=== PATIENT | female | born 1970 | race Hispanic/Latino ===

== ENCOUNTER 2022-06-05 09:27 | Day surgery (SDC) | payer OTHER ==
[2022-05-29 14:05] LABS: Protime INR 1.01
--- NOTE | 2022-05-29 15:14 | EKG ---
Test Date: 2022-05-29 Test Time: 13:06:45 Toxicology Supervisor: WILLIAM MEASUREMENT RESULTS: Intervals: Rate: 67 WI: 144 QRSD: 80 QT: 546 QTc: 576 [place]: P: 47 WI: 144 QRS: 18 T: 72 INTERPRETIVE STATEMENTS: Normal sinus rhythm Nonspecific T wave abnormality Prolonged QT Abnormal ECG No previous ECG available for comparison Electronically Signed On 05-29-22 15:13:35 SENIOR SITE MANAGER by [place]
[2022-06-05] MEDS ORDERED: CEFAZOLIN SODIUM 2 GM/VIAL ONE (10:01)
[2022-06-05] MEDS ORDERED: Ringers Lactate 1,000 ML IV ONE (10:01)
[2022-06-05] MEDS ORDERED: propofoL 200 MG/20 ML VIAL IV ONE (11:04)
[2022-06-05] MEDS ORDERED: MIDAZOLAM HCL 2 MG/2 ML INJ ONE (11:05)
[2022-06-05] MEDS ORDERED: FENTANYL CITR 100 MCG/2 ML ONE (11:05)
[2022-06-05] MEDS ORDERED: LIDOCAINE 1% MPF 5 ML VIAL ONE (11:05)
[2022-06-05] MEDS ORDERED: NS 0.9% VIAL 10 ML ONE (11:29)
[2022-06-05] MEDS ORDERED: CEFAZOLIN SODIUM 1 GM/VIAL ONE (11:42)
[2022-06-05] MEDS ORDERED: EPHEDRINE SULF 50 MG/ML VIAL ONE (11:53)
[2022-06-05] MEDS ORDERED: KETOROLAC 30 MG/ML INJ ONE (11:57)
[2022-06-05] MEDS ORDERED: ONDANSETRON 4 MG/2 ML VIAL ONE (12:08)
--- NOTE | 2022-06-05 12:39 | RAD REPORT ---
EXAM DESCRIPTION: RAD - Urethrocystogrphy Retrograde - 06/05/2022 12:33 pm CLINICAL HISTORY: LEFT URETEROSCOPY COMPARISON: No comparisons FINDINGS: Total fluoro time: 1:45
[2022-06-05 14:24] VITALS: BP 105/59; TEMP 97.4; O2SAT 100
== END 2022-06-05 14:14 | disposition home or self-care (01) ==
LOC: OR 09:27
PROVIDERS: ATTEND Urology
DX: C66.2 Malignant neoplasm of left ureter (principal); N28.89 Other specified disorders of kidney and ureter; N13.30 Unspecified hydronephrosis; N26.1 Atrophy of kidney (terminal); R10.9 Unspecified abdominal pain
CPT/HCPCS: 93005; 87088; 87086; 36415; 88108; 85610; 88305 ×2; 74450; 51610; J2704; J2001; J2250; J3010; A4216; J7120; J2405; J0690

== ENCOUNTER 2022-07-13 10:39 | Day surgery (SDC) | payer OTHER ==
[2022-07-13] MEDS ORDERED: Ringers Lactate 1,000 ML IV ONE ×2 (10:50→14:26)
[2022-07-13] MEDS ORDERED: CEFAZOLIN SODIUM 1 GM/VIAL ONE (10:50)
[2022-07-13] MEDS ORDERED: NS 0.9% VIAL 40 ML ONE (11:56)
[2022-07-13] MEDS ORDERED: BUPIVACAINE 0.5% PF 10 ML VIAL ONE (11:57)
[2022-07-13] MEDS ORDERED: HEPARIN 5000 UNIT/ML 1 ML VIAL ONE (11:57)
[2022-07-13] MEDS ORDERED: EPINEPHRINE/PF 1 MG/ML AMP ONE (11:58)
[2022-07-13] MEDS ORDERED: BUPIVACAINE 0.25% PF 10 ML VIAL ONE (12:00)
[2022-07-13] MEDS ORDERED: propofoL 200 MG/20 ML VIAL IV ONE (12:11)
[2022-07-13] MEDS ORDERED: FENTANYL CITR 100 MCG/2 ML ONE (12:11)
[2022-07-13] MEDS ORDERED: MIDAZOLAM HCL 2 MG/2 ML INJ ONE (12:12)
[2022-07-13] MEDS ORDERED: LIDOCAINE 2% MPF 5 ML VIAL ONE (12:12)
[2022-07-13] MEDS ORDERED: KETOROLAC 30 MG/ML INJ ONE (12:12)
[2022-07-13] MEDS ORDERED: dexAMETHasone 10 MG/ML VIAL ONE (12:12)
[2022-07-13] MEDS ORDERED: ONDANSETRON 4 MG/2 ML VIAL ONE (12:14)
[2022-07-13] MEDS ORDERED: NS 0.9% VIAL 10 ML ONE ×2 (13:23→13:26)
[2022-07-13] MEDS ORDERED: Phenylephrine HCl 10 MG/ML 1 ML VIAL ONE (13:26)
--- NOTE | 2022-07-13 13:57 | P.OP ---
Preoperative diagnosis: Need for chemotherapy Postoperative diagnosis: Need for chemotherapy Primary procedure: Placement RIGHT subclavian Port a cath chemo port Secondary procedure: flouroscopy and ultrasound utilized Anesthesia: mac + local Estimated blood loss: 5cc Specimen: none Findings: anatomic abnormality in RIGTH Subclavian Complications: None Implants: Port a Cath Transferred to: Recovery Room Condition: Good
--- NOTE | 2022-07-13 14:08 | RAD REPORT ---
EXAM DESCRIPTION: RAD - Fluoroscopy <1 Hour - 07/13/2022 1:58 pm CLINICAL HISTORY: Venous catheter insertion. PORT A CATH COMPARISON: No comparisons FINDINGS: Fluoroscopic imaging is submitted from placement of a venous catheter. Details of the pro cedure not available. Fluoroscopy time: 2.7 minutes
[2022-07-13] MEDS ORDERED: PROMETHAZINE INJ 25 MG/ML AMP ONE (14:18)
[2022-07-13] MEDS: HYDROMORPHONE HCL 1 MG/ML INJ ONE ×2 (14:21→14:44)
--- NOTE | 2022-07-13 15:16 | RAD REPORT ---
EXAM DESCRIPTION: RADChest Single View07/13/2022 3:02 pm CLINICAL HISTORY: Device placement/central venous catheter placement IMPRESSION: Central venous catheter with its tip in the superior vena cava No pneumothorax
[2022-07-13 15:20] VITALS: BP 110/71
[2022-07-13 16:35] VITALS: TEMP 97; O2SAT 96
--- NOTE | 2022-07-13 23:20 | OP ---
Date of Procedure: 07/13/2022 Surgeon: Gino Baum MD, Indications: This is a 51-year-old female with a history of cancer requiring chemotherapy access. A s such, I discussed risks, benefits, and alternatives of placement of chemotherapy port including, bu t not limited to bleeding, infection, damage to surrounding tissues, injury to blood vessels, lung, h eart, great vessels. The patient agreed to proceed as indicated. Preoperative Diagnosis: Need for chemotherapy. Postoperative Diagnosis: Need for chemotherapy. Procedure Performed: 1.Attempted placement of right internal jugular port, unsuccessful. 2.Placement of right subclavian chemotherapy Port-A-Cath successfully utilizing fluoroscopy and ultr asound guidance. Anesthesia: MAC plus local. Estimated Blood Loss: Less than 5 cc. Specimen: None. Findings: Anatomic abnormality was noted in the right subclavian vein. Complications: None. Implants: Port-A-Cath. Disposition: The patient was transferred to recovery room in good condition. Procedure In Detail: After informed consent was obtained, patient was brought to the operating room, prepped in the usual sterile fashion. After adequate anesthesia was achieved, I placed the patient in steep Trendelenburg position using ultrasound guidance. I cannulated the right internal jugular v ein under ultrasound guidance with a microintroducer needle. On the first attempt, dark red nonpulsa tile blood was returned. Microwire was advanced quite easily. Confirmed position with fluoroscopy i nto the right atrium. At this point, I made a small radha incision overlying the skin, inserted a demario rointroducer sheath into the right internal jugular vein and the microwire was removed. Standard wir e was advanced at this point and found to be in good position also in the right atrium. I then made a counter incision at the infraclavicular position and removed adipose tissue to allow for exposure o f the prepectoral fascia. I then brought the tunneling device and brought the catheter after appropr iately anesthetizing the tract, out through the internal jugular insertion site. At this point, I in serted the catheter without incident after placing the introducer sheath in place over the wire using Seldinger technique. The standard wire was on the back table and so I advanced the catheter. I adv anced using fluoroscopic guidance into the SVC. At this point, I attached the chemotherapy button to the end and attempted to flush it after sizing it appropriately 19 cm. It did not flush easily and the fluoroscopic guidance confirmed that there was a twist up at the neck. Multiple attempts to repo sition were unsuccessful. As such, I removed the catheter at this point and opted to close this site . At this point, I placed a dressing over the insertion site and turned my attention to the subclavi an vein. At this point, I used the same said micro introducer needle to cannulate the right subclavi an vein on the first attempt. Dark red nonpulsatile blood returned. Microwire was advanced. Fluoro scopic guidance confirmed position in the SVC. At this point, I placed the introducer sheath from e micro set, removed the micro wire, advanced standard wire at this point, also found to be in the ri t atrium at this point. The microintroducer sheath was removed and the standard introducer sheath was placed at this point with minimal resistance at this point. I then advanced the catheter into th e right atrium and removed the introducer sheath. At this point, I pulled back on the catheter to pu t it in the SVC confluence. At this point, I attached the chemotherapy port with the lock collar. A t this point, I then secured to the chest wall using 2-0 Prolene sutures and tested it with sterile s willian and flushed quite easily at this point. As such, I irrigated all incisions. I closed the neck insertion incision with an interrupted 2-0 nylon suture and a sterile dressing placed over top. I t richard closed the deep dermal plane overlying the pocket for the chemotherapy port on the chest wall wit h 3-0 Vicryl interrupted sutures and closed the skin with 4-0 Monocryl in a running fashion at the mccoy bcutaneous plane. At this point, a sterile dressing was placed over the top. I then placed heparin super flush 3 cc into the port, was flushed quite easily transcutaneously and a sterile dressing plac ed over top. The patient tolerated the procedure well without evidence of complication and transferr ed to PACU in good condition. All counts were correct at the end of the case. A stat chest x-ray wi ll be performed in the PACU. TK/MODL Voice ID: [id number] Report ID: [id number]
== END 2022-07-13 16:21 | disposition home or self-care (01) ==
LOC: OR 10:39
PROVIDERS: ATTEND Surgery
PROC: 0JH60WZ Insertion of Totally Implantable Vascular Access Device into Chest Subcutaneous Tissue and Fascia, Open Approach (ICD-10-PCS; principal; 2022-07-13 11:45)
DX: C66.2 Malignant neoplasm of left ureter (principal)
CPT/HCPCS: 71045; 76000; 36561; J2704; J2550; J2370; J1644 ×3; J2001; J2250; J3010; J1100; A4216 ×3; J1170; J7120 ×2; J2405; J0690; C1788; J0171

== ENCOUNTER 2022-07-17 09:45 | Emergency (ER) | payer OTHER ==
--- OUTSIDE RECORDS SUMMARY | 2022-07-17 09:52 | XMS REPORT | Continuity of Care Document ---
:1970 Author Organization [facility] t Address [address] [place] [address] Care Team Providers Name Role Phone Michaela Sterling MD Primary Care Physician Micahela Sterling Attending Clinician Unavailable RANJIT COKER Attending Clinician Unavailable Ranjit Coker MD Attending Clinician Lab, Ang - Db Attending Clinician Unavailable Doctor Unassigned, [place] Attending Clinician Unavailable JAIDEN TAN Attending Clinician Unavailable Therapy, [facility] Attending Clinician Unavailable Juliano Chan MD Attending Clinician JULIANO CHAN Attending Clinician Unavailable RANJIT COKER Admitting Clinician Unavailable Payers Payer Name Policy Type Policy Number Effective Date Expiration Date S ource Problems Condition Condition Condition Status Onset Resolution Last Treating Co mments Source Name Details Category Date Date Treatment Clinician Date Graves Graves Disease Active Univers disease disease 3-29 ity of 00:00: [address] Goiter Goiter Disease Active Univers diffuse diffuse 3-29 ity of 00:00: [address] [id number] Hydronephr Problem Com mon osis, left [facility] [id number] Nausea Problem Common [facility] - [facility] [id number] Mass of Problem Common ureter [facility] - [facility] [id number] Left lower Problem Co mmon quadrant [facility] abdominal - [facility] pain [facility] [id number] 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 [id number] EZEQUIEL Problem Common (generaliz Spirit ed anxiety - [facility] disorder) [facility] [id number] Essential Problem Comm on (primary) Spirit hypertensi - [facility] on [facility] [id number] Hypertrigl Problem Co mmon yceridemia [facility] [id number] Hyperthyro Problem Com mon idism [facility] - [facility] Allergies, Adverse Reactions, Alerts Allergy Allergy Status Severity Reaction(s) Onset Inactive Treating Comm ents Source Name Type Date Date Clinician NO KNOWN Drug Active Univers ALLERGIE Class ity of [facility] Social History Social Habit Start Date Stop Date Quantity Comments Source History of Tobacco [facility] - [facility] Use [facility] Sex Assigned At Common Sp [place] - [facility] Exposure to 2022-06-09 2022-06-19 Not sure [facility] SARS-CoV-2 (event) 00:00:00 15:12:00 Medica l Branch Smoking Status Start Date Stop Date Source Tobacco smoking consumption [facility] Medical unknown Branch Never Smoker [facility] Medications Ordered Filled Start Stop Current Ordering Indication Dosage Frequency Signature Comments Components Source Medication Medication Date Date Medication? Clinician (SIG) Name Name diazePAM 10 diazePAM 10 No QD diazePAM MG MG 1-23 10 MG 00:00: 00 methIMAzole 2021-06 Yes [id number] TAKE 1 Univers 10 mg 2-11 TABLET BY ity of tablet 00:00: MOUTH TWICE A Medical DAY Branch methIMAzole 2021-06 Yes [id number] TAKE 1 Univers 10 mg 2-11 TABLET BY ity of tablet 00:00: MOUTH [place] TWICE A Medical DAY Branch methIMAzole 2021-06 Yes [id number] TAKE 1 Univers 10 mg 2-11 TABLET BY ity of tablet 00:00: MOUTH TWICE A Medical DAY Branch Ondansetron Ondansetron 2021-06 No 1{table QD Ondansetro HCl 8 MG HCl 8 MG 2-08 t_as_ne n HCl 8 MG 00:00: eded} 00 Ondansetron Ondansetron 2021-06 No 1{table QD Ondansetro HCl 8 MG HCl 8 MG 2-08 t_as_ne n HCl 8 MG 00:00: eded} 00 Ondansetron Ondansetron 2021-06 No 1{table QD Ondansetro HCl 8 MG HCl 8 MG 2-08 t_as_ne n HCl 8 MG 00:00: eded} 00 Ondansetron Ondansetron 2021-06 No 1{table QD Ondansetro HCl 8 MG HCl 8 MG 2-08 t_as_ne n HCl 8 MG 00:00: eded} 00 traMADol traMADol 2021-06- No 1{table TID traMADol HCl 50 MG HCl 50 MG -01 19- t_as_ne HCl 50 MG 00:00: 00:00 eded} 00 :00 traMADol traMADol 2021-06- No 1{table TID traMADol HCl 50 MG HCl 50 MG 07-18- t_as_ne HCl 50 MG 00:00: 00:00 eded} 00 :00 PROPRANOLOL 2022-1 Yes [id number] 20mg TAKE 1 Univers 20 mg 0-25 TABLET BY ity of tablet 00:00: MOUTH IN [place] 00 THE Medical MORNING Branch AND 1 TABLET IN THE EVENING. PROPRANOLOL 2021-1 Yes [id number] 20mg TAKE 1 Univers 20 mg 0-25 TABLET BY ity of tablet 00:00: MOUTH IN [place] 00 THE Medical MORNING Branch AND 1 TABLET IN THE EVENING. PROPRANOLOL 2021-1 Yes [id number] 20mg TAKE 1 Univers 20 mg 0-25 TABLET BY ity of tablet 00:00: MOUTH IN [place] 00 THE Medical MORNING Branch AND 1 TABLET IN THE EVENING. PROPRANOLOL 2021-1 Yes [id number] 20mg TAKE 1 Univers 20 mg 0-25 TABLET BY ity of tablet 00:00: MOUTH IN [place] [address] THE Medical MORNING Branch AND 1 TABLET IN THE EVENING. Sertraline Sertraline 2021-0 No 1{table QD Sertraline HCl 25 MG HCl 25 MG 9-30 t} HCl 25 MG 00:00: 00 Sertraline Sertraline 2021-0 No 1{table QD Sertraline HCl 25 MG HCl 25 MG 9-30 t} HCl 25 MG 00:00: 00 METHIMAZOLE 2021-0 Yes [id number] TAKE 1 Univers 10 mg 9-11 TABLET BY ity of tablet 00:00: MOUTH [place] 00 TWICE A Medical DAY Branch METHIMAZOLE 2021-0 Yes [id number] TAKE 1 Univers 10 mg 9-11 TABLET BY ity of tablet 00:00: MOUTH [place] 00 TWICE A Medical DAY Branch METHIMAZOLE 2021-0 2022- No [id number] TAKE 1 Univers 10 mg 9-11 12-11 TABLET BY ity of tablet 00:00: 00:00 MOUTH [place] 00 :00 TWICE A Medical DAY Branch Cephalexin Cephalexin 2021-0 2022- No 1{table BID Cephalexin 500 MG 500 MG 02-1414 t} 500 MG 00:00: 00:00 00 :00 propranoloL 2-0 Yes [id number] 20mg Take 1 Univers 20 mg 7-28 tablet by ity of tablet 00:00: mouth in [place] [address] the Medical morning Branch and 1 tablet in the evening. propranoloL 2021-0 Yes [id number] 20mg Take 1 Univers 20 mg 7-28 tablet by ity of tablet 00:00: mouth in [place] [address] the Medical morning Branch and 1 tablet in the evening. propranoloL 2021-0 2021- No [id number] 20mg Take 1 Univers 20 mg 7-28 10-25 tablet by ity of tablet 00:00: 00:00 mouth in [place] 00 :00 the Medical morning Branch and 1 tablet in the evening. PROPRANOLOL 2021-0 Yes [id number] TAKE 1 Univers 20 mg 6-12 TABLET BY ity of tablet 00:00: MOUTH [place] 00 TWICE A Medical DAY Branch METHIMAZOLE 2021-0 Yes [id number] TAKE 1 Univers 10 mg 6-12 TABLET BY ity of tablet 00:00: MOUTH [place] 00 TWICE A Medical DAY Branch PROPRANOLOL 2021-0 Yes [id number] TAKE 1 Univers 20 mg 6-12 TABLET BY ity of tablet 00:00: MOUTH [place] 00 TWICE A Medical DAY Branch METHIMAZOLE 2021-0 Yes [id number] TAKE 1 Univers 10 mg 6-12 TABLET BY ity of tablet 00:00: MOUTH 00 TWICE A Medical DAY Branch PROPRANOLOL 2021-0 Yes [id number] TAKE 1 Univers 20 mg 6-12 TABLET BY ity of tablet 00:00: MOUTH 00 TWICE A Medical DAY Branch METHIMAZOLE 2021-0 Yes [id number] TAKE 1 Univers 10 mg 6-12 TABLET BY ity of tablet 00:00: MOUTH 00 TWICE A Medical DAY Branch PROPRANOLOL 2021-0 Yes [id number] TAKE 1 Univers 20 mg 6-12 TABLET BY ity of tablet 00:00: MOUTH [place] 00 TWICE A Medical DAY Branch METHIMAZOLE 2021-0 Yes [id number] TAKE 1 Univers 10 mg 6-12 TABLET BY ity of tablet 00:00: MOUTH 00 TWICE A Medical DAY Branch METHIMAZOLE 2021-0 Yes [id number] TAKE 1 Univers 10 mg 6-12 TABLET BY ity of tablet 00:00: MOUTH [place] 00 TWICE A Medical DAY Branch METHIMAZOLE 2-0 2022- No [id number] TAKE 1 Univers 10 mg 6-12 09-11 TABLET BY ity of tablet 00:00: 00:00 MOUTH [place] 00 :00 TWICE A Medical DAY Branch PROPRANOLOL 2021-0 2022- No [id number] TAKE 1 Univers 20 mg 6-12 07-28 TABLET BY ity of tablet 00:00: 00:00 MOUTH [place] 00 :00 TWICE A Medical DAY Branch buPROPion buPROPion 2021-0 No 1{table QD buPROPion HCl ER (XL) HCl ER (XL) 5-20 t_in_th HCl ER 300 MG 300 MG 00:00: e_morni (XL) 300 00 ng} MG buPROPion buPROPion 2021-0 No 1{table QD buPROPion HCl ER (XL) HCl ER (XL) 5-20 t_in_th HCl ER 300 MG 300 MG 00:00: e_morni (XL) 300 00 ng} MG amLODIPine amLODIPine 2021-0 No 1{table QD amLODIPine Besylate 10 Besylate 10 3-28 t} Besylate MG MG 00:00: 10 MG 00 buPROPion buPROPion 2021-0 No 1{table QD buPROPion HCl ER (XL) HCl ER (XL) 3-28 t_in_th HCl ER 150 MG 150 MG 00:00: e_morni (XL) 150 00 ng} MG amLODIPine amLODIPine 2021-0 No 1{table QD amLODIPine Besylate 10 Besylate 10 3-28 t} Besylate MG MG 00:00: 10 MG 00 amLODIPine amLODIPine 2021-0 No 1{table QD amLODIPine Besylate 10 Besylate 10 3-28 t} Besylate MG MG 00:00: 10 MG 00 amLODIPine amLODIPine 2021-0 No 1{table QD amLODIPine Besylate 10 Besylate 10 3-28 t} Besylate MG MG 00:00: 10 MG 00 amLODIPine amLODIPine 2021-0 No 1{table QD amLODIPine Besylate 10 Besylate 10 3-28 t} Besylate MG MG 00:00: 10 MG 00 amLODIPine amLODIPine 2021-0 No 1{table QD amLODIPine Besylate 10 Besylate 10 3-28 t} Besylate MG MG 00:00: 10 MG 00 amLODIPine amLODIPine 2021-0 No 1{table QD amLODIPine Besylate 10 Besylate 10 3-28 t} Besylate MG MG 00:00: 10 MG 00 amLODIPine amLODIPine 2021-0 No 1{table QD amLODIPine Besylate 10 Besylate 10 3-28 t} Besylate MG MG 00:00: 10 MG 00 amLODIPine amLODIPine 2021-0 No 1{table QD amLODIPine Besylate 10 Besylate 10 3-28 t} Besylate MG MG 00:00: 10 MG 00 amLODIPine amLODIPine 2021-0 No 1{table QD amLODIPine Besylate 10 Besylate 10 3-28 t} Besylate MG MG 00:00: 10 MG 00 amLODIPine amLODIPine 0 No 1{table QD amLODIPine Besylate 10 Besylate 10 3-28 t} Besylate MG MG 00:00: 10 MG 00 amLODIPine amLODIPine 2021-0 No 1{table QD amLODIPine Besylate 10 Besylate 10 3-28 t} Besylate MG MG 00:00: 10 MG 00 amLODIPine Yes Univers 10 mg 3-28 ity of tablet 00:00: [place] [facility] Branch buPROPion Yes Univers XL 150 mg 3-28 ity of 24 hr 00:00: [place] tablet Medical Branch lisinopriL Yes Univers 40 mg 3-28 ity of tablet 00:00: [address] amLODIPine 0 Yes Univers 10 mg 3-28 ity of tablet 00:00: [address] buPROPion Yes Univers XL 150 mg 3-28 ity of 24 hr 00:00: [place] tablet Medical Branch lisinopriL Yes Univers 40 mg 3-28 ity of tablet 00:00: [address] amLODIPine 0 Yes Univers 10 mg 3-28 ity of tablet 00:00: [address] buPROPion Yes Univers XL 150 mg 3-28 ity of 24 hr 00:00: [place] tablet Medical Branch lisinopriL 2021-0 Yes Univers 40 mg 3-28 ity of tablet 00:00: [address] amLODIPine 2021-0 Yes Univers 10 mg 3-28 ity of tablet 00:00: [address] buPROPion 0 Yes Univers XL 150 mg 3-28 ity of 24 hr 00:00: [place] tablet Medical Branch lisinopriL 2021-0 Yes Univers 40 mg 3-28 ity of tablet 00:00: [address] amLODIPine 2021-0 Yes Univers 10 mg 3-28 ity of tablet 00:00: [address] buPROPion 0 Yes Univers XL 150 mg 3-28 ity of 24 hr 00:00: [place] tablet Medical Branch lisinopriL 0 Yes Univers 40 mg 3-28 ity of tablet 00:00: [place] 00 Medical Branch amLODIPine 0 Yes Univers 10 mg 3-28 ity of tablet 00:00: [place] Medical Branch buPROPion 0 Yes Univers XL 150 mg 3-28 ity of 24 hr 00:00: [place] tablet Medical Branch lisinopriL 0 Yes Univers 40 mg 3-28 ity of tablet 00:00: [place] Medical Branch amLODIPine 2021-0 Yes Univers 10 mg 3-28 ity of tablet 00:00: [place] Medical Branch buPROPion 0 Yes Univers XL 150 mg 3-28 ity of 24 hr 00:00: [place] tablet Medical Branch lisinopriL 0 Yes Univers 40 mg 3-28 ity of tablet 00:00: [place] Medical Branch amLODIPine 2021-0 Yes Univers 10 mg 3-28 ity of tablet 00:00: [place] Medical Branch buPROPion 0 Yes Univers XL 150 mg 3-28 ity of 24 hr 00:00: [place] tablet Medical Branch lisinopriL 0 Yes Univers 40 mg 3-28 ity of tablet 00:00: [place] Medical Branch amLODIPine 2021-0 Yes Univers 10 mg 3-28 ity of tablet 00:00: [place] [address] Medical Branch buPROPion 0 Yes Univers XL 150 mg 3-28 ity of 24 hr 00:00: [place] tablet Medical Branch lisinopriL 2021-0 Yes Univers 40 mg 3-28 ity of tablet 00:00: [place] [address] Medical Branch amLODIPine 2021-0 Yes Univers 10 mg 3-28 ity of tablet 00:00: [place] Medical Branch buPROPion 2021-0 Yes Univers XL 150 mg 3-28 ity of 24 hr 00:00: [place] tablet Medical Branch lisinopriL 2021-0 Yes Univers 40 mg 3-28 ity of tablet 00:00: [place] Medical Branch amLODIPine 2021-0 Yes Univers 10 mg 3-28 ity of tablet 00:00: [place] Medical Branch buPROPion 2021-0 Yes Univers XL 150 mg 3-28 ity of 24 hr 00:00: [place] tablet Medical Branch lisinopriL 2021-0 Yes Univers 40 mg 3-28 ity of tablet 00:00: [place] Medical Branch amLODIPine 2021-0 Yes Univers 10 mg 3-28 ity of tablet 00:00: [place] 00 Medical Branch buPROPion 2-0 Yes Univers XL 150 mg 3-28 ity of 24 hr 00:00: [place] tablet 00 Medical Branch lisinopriL 2022-0 Yes Univers 40 mg 3-28 ity of tablet 00:00: [place] 00 Medical Branch Lisinopril Lisinopril 2022-0 No 1{table QD Lisinopril 40 MG 40 MG 3-11 t} 40 MG 00:00: 00 Lisinopril Lisinopril 2022-0 No 1{table QD Lisinopril 40 MG 40 MG 3-11 t} 40 MG 00:00: 00 Lisinopril Lisinopril 2022-0 No 1{table QD Lisinopril 40 MG 40 MG 3-11 t} 40 MG 00:00: 00 Lisinopril Lisinopril 2022-0 No 1{table QD Lisinopril 40 MG 40 MG 3-11 t} 40 MG 00:00: 00 Lisinopril Lisinopril 2022-0 No 1{table QD Lisinopril 40 MG 40 MG 3-11 t} 40 MG 00:00: 00 Lisinopril Lisinopril 2022-0 No 1{table QD Lisinopril 40 MG 40 MG 3-11 t} 40 MG 00:00: 00 Lisinopril Lisinopril 2022-0 No 1{table QD Lisinopril 40 MG 40 MG 3-11 t} 40 MG 00:00: 00 Lisinopril Lisinopril 2022-0 No 1{table QD Lisinopril 40 MG 40 MG 3-11 t} 40 MG 00:00: 00 Lisinopril Lisinopril 2022-0 No 1{table QD Lisinopril 40 MG 40 MG 3-11 t} 40 MG 00:00: 00 Sertraline Sertraline 2022-0 No 1{table QD Sertraline HCl 25 MG HCl 25 MG 3-11 t} HCl 25 MG 00:00: 00 Lisinopril Lisinopril 2022-0 No 1{table QD Lisinopril 40 MG 40 MG 3-11 t} 40 MG 00:00: 00 Sertraline Sertraline 2-0 No 1{table QD Sertraline HCl 25 MG HCl 25 MG 3-11 t} HCl 25 MG 00:00: 00 Lisinopril Lisinopril 2021-0 No 1{table QD Lisinopril 40 MG 40 MG 3-11 t} 40 MG 00:00: 00 SERTraline 0 Yes TAKE 1 Unive rs 25 mg 3-11 TABLET BY ity of tablet 00:00: MOUTH EVERY DAY Medical FOR 30 Branch DAYS SERTraline 0 Yes TAKE 1 Unive rs 25 mg 3-11 TABLET BY ity of tablet 00:00: MOUTH EVERY DAY Medical FOR 30 Branch DAYS SERTraline 0 Yes TAKE 1 Unive rs 25 mg 3-11 TABLET BY ity of tablet 00:00: EVERY DAY Medical FOR 30 Branch DAYS SERTraline 0 Yes TAKE 1 Unive rs 25 mg 3-11 TABLET BY ity of tablet 00:00: EVERY DAY Medical FOR 30 Branch DAYS SERTraline 0 Yes TAKE 1 Unive rs 25 mg 3-11 TABLET BY ity of tablet 00:00: EVERY DAY Medical FOR 30 Branch DAYS SERTraline 0 Yes TAKE 1 Unive rs 25 mg 3-11 TABLET BY ity of tablet 00:00: EVERY DAY Medical FOR 30 Branch DAYS SERTraline 0 Yes TAKE 1 Unive rs 25 mg 3-11 TABLET BY ity of tablet 00:00: EVERY DAY Medical FOR 30 Branch DAYS SERTraline 2021-0 Yes TAKE 1 Unive rs 25 mg 3-11 TABLET BY ity of tablet 00:00: EVERY DAY Medical FOR 30 Branch DAYS SERTraline 2021-0 Yes TAKE 1 Unive rs 25 mg 3-11 TABLET BY ity of tablet 00:00: EVERY DAY Medical FOR 30 Branch DAYS SERTraline 2021-0 Yes TAKE 1 Unive rs 25 mg 3-11 TABLET BY ity of tablet 00:00: EVERY DAY Medical FOR 30 Branch DAYS SERTraline 2021-0 Yes TAKE 1 Unive rs 25 mg 3-11 TABLET BY ity of tablet 00:00: EVERY DAY Medical FOR 30 Branch DAYS SERTraline 2021-0 Yes TAKE 1 Unive rs 25 mg 3-11 TABLET BY ity of tablet 00:00: EVERY DAY Medical FOR 30 Branch DAYS Citalopram Citalopram No 1{table QD Citalopram Hydrobromid Hydrobromid 2-28 t} Hydrobromi e 10 MG e 10 MG 00:00: de 10 MG 00 citalopram Yes TAKE 1 Unive rs 10 mg 2-28 TABLET BY ity of tablet 00:00: MOUTH EVERY DAY Medical FOR 30 Branch DAYS citalopram Yes TAKE 1 Unive rs 10 mg 2-28 TABLET BY ity of tablet 00:00: MOUTH EVERY DAY Medical FOR 30 Branch DAYS citalopram Yes TAKE 1 Unive rs 10 mg 2-28 TABLET BY ity of tablet 00:00: [facility] EVERY DAY Medical FOR 30 Branch DAYS citalopram Yes TAKE 1 Unive rs 10 mg 2-28 TABLET BY ity of tablet 00:00: EVERY DAY Medical FOR 30 Branch DAYS citalopram Yes TAKE 1 Unive rs 10 mg 2-28 TABLET BY ity of tablet 00:00: MOUTH EVERY DAY Medical FOR 30 Branch DAYS citalopram Yes TAKE 1 Unive rs 10 mg 2-28 TABLET BY ity of tablet 00:00: EVERY DAY Medical FOR 30 Branch DAYS citalopram Yes TAKE 1 Unive rs 10 mg 2-28 TABLET BY ity of tablet 00:00: EVERY DAY Medical FOR 30 Branch DAYS citalopram Yes TAKE 1 Unive rs 10 mg 2-28 TABLET BY ity of tablet 00:00: MOUTH EVERY DAY Medical FOR 30 Branch DAYS citalopram 0 Yes TAKE 1 Unive rs 10 mg 2-28 TABLET BY ity of tablet 00:00: MOUTH EVERY DAY Medical FOR 30 Branch DAYS citalopram 0 Yes TAKE 1 Unive rs 10 mg 2-28 TABLET BY ity of tablet 00:00: MOUTH 00 EVERY DAY Medical FOR 30 Branch DAYS citalopram 0 Yes TAKE 1 Unive rs 10 mg 2-28 TABLET BY ity of tablet 00:00: [facility] EVERY DAY Medical FOR 30 Branch DAYS citalopram Yes TAKE 1 Unive rs 10 mg 2-28 TABLET BY ity of tablet 00:00: MOUTH [place] 00 EVERY DAY Medical FOR 30 Branch DAYS buPROPion buPROPion No 1{table QD buPROPion HCl ER (XL) HCl ER (XL) t_in_th HCl ER 150 MG 150 MG e_morni (XL) 150 ng} MG Propranolol Propranolol No 1{table BID Propranolo HCl 20 MG HCl 20 MG t} l HCl 20 MG methIMAzole methIMAzole No 1{table QD methIMAzol 10 MG 10 MG t} e 10 MG methIMAzole methIMAzole No 1{table QD methIMAzol 10 MG 10 MG t} e 10 MG Propranolol Propranolol No 1{table BID Propranolo HCl 20 MG HCl 20 MG t} l HCl 20 MG methIMAzole methIMAzole No 1{table QD methIMAzol 10 MG 10 MG t} e 10 MG Propranolol Propranolol No 1{table BID Propranolo HCl 20 MG HCl 20 MG t} l HCl 20 MG methIMAzole methIMAzole No 1{table QD methIMAzol 10 MG 10 MG t} e 10 MG buPROPion buPROPion No 1{table QD buPROPion HCl ER (XL) HCl ER (XL) t_in_th HCl ER 150 MG 150 MG e_morni (XL) 150 ng} MG Propranolol Propranolol No 1{table BID Propranolo HCl 20 MG HCl 20 MG t} l HCl 20 MG Propranolol Propranolol No 1{table BID Propranolo HCl 20 MG HCl 20 MG t} l HCl 20 MG buPROPion buPROPion No 1{table QD buPROPion HCl ER (XL) HCl ER (XL) t_in_th HCl ER 150 MG 150 MG e_morni (XL) 150 ng} MG methIMAzole methIMAzole No 1{table QD methIMAzol 10 MG 10 MG t} e 10 MG methIMAzole methIMAzole No 1{table QD methIMAzol 10 MG 10 MG t} e 10 MG Propranolol Propranolol No 1{table BID Propranolo HCl 20 MG HCl 20 MG t} l HCl 20 MG buPROPion buPROPion No 1{table QD buPROPion HCl ER (XL) HCl ER (XL) t_in_th HCl ER 150 MG 150 MG e_morni (XL) 150 ng} MG buPROPion buPROPion No buPROPion HCl ER (XL) HCl ER (XL) HCl ER 300 MG 300 MG (XL) 300 MG buPROPion buPROPion No 1{table QD buPROPion HCl ER (XL) HCl ER (XL) t_in_th HCl ER 150 MG 150 MG e_morni (XL) 150 ng} MG methIMAzole methIMAzole No 1{table QD methIMAzol 10 MG 10 MG t} e 10 MG Propranolol Propranolol No 1{table BID Propranolo HCl 20 MG HCl 20 MG t} l HCl 20 MG buPROPion buPROPion No 1{table QD buPROPion HCl ER (XL) HCl ER (XL) t_in_th HCl ER 150 MG 150 MG e_morni (XL) 150 ng} MG Lisinopril Lisinopril No Lisinopril 40 MG 40 MG 40 MG Sertraline Sertraline No Sertraline HCl 25 MG HCl 25 MG HCl 25 MG methIMAzole methIMAzole No 1{table QD methIMAzol 10 MG 10 MG t} e 10 MG Propranolol Propranolol No 1{table BID Propranolo HCl 20 MG HCl 20 MG t} l HCl 20 MG Lisinopril Lisinopril No Lisinopril 40 MG 40 MG 40 MG methIMAzole methIMAzole No 1{table QD methIMAzol 10 MG 10 MG t} e 10 MG buPROPion buPROPion No 1{table QD buPROPion HCl ER (XL) HCl ER (XL) t_in_th HCl ER 150 MG 150 MG e_morni (XL) 150 ng} MG methIMAzole methIMAzole No 1{table QD methIMAzol 10 MG 10 MG t} e 10 MG buPROPion buPROPion No 1{table QD buPROPion HCl ER (XL) HCl ER (XL) t_in_th HCl ER 150 MG 150 MG e_morni (XL) 150 ng} MG Lisinopril Lisinopril No Lisinopril 40 MG 40 MG 40 MG amLODIPine amLODIPine No amLODIPine Besylate 10 Besylate 10 Besylate MG MG 10 MG buPROPion buPROPion No 1{table QD buPROPion HCl ER (XL) HCl ER (XL) t_in_th HCl ER 150 MG 150 MG e_morni (XL) 150 ng} MG methIMAzole methIMAzole No 1{table QD methIMAzol 10 MG 10 MG t} e 10 MG Lisinopril Lisinopril No Lisinopril 40 MG 40 MG 40 MG amLODIPine amLODIPine No amLODIPine Besylate 10 Besylate 10 Besylate MG MG 10 MG Lisinopril Lisinopril No Lisinopril 40 MG 40 MG 40 MG methIMAzole methIMAzole No 1{table QD methIMAzol 10 MG 10 MG t} e 10 MG buPROPion buPROPion No 1{table QD buPROPion HCl ER (XL) HCl ER (XL) t_in_th HCl ER 150 MG 150 MG e_morni (XL) 150 ng} MG Propranolol Propranolol No 5{ml} QD Propranolo HCl 20 HCl 20 l HCl 20 MG/5ML MG/5ML MG/5ML buPROPion buPROPion No 1{table QD buPROPion HCl ER (XL) HCl ER (XL) t_in_th HCl ER 150 MG 150 MG e_morni (XL) 150 ng} MG amLODIPine amLODIPine No amLODIPine Besylate 10 Besylate 10 Besylate MG MG 10 MG traMADol traMADol No 1{table QD traMADol HCl 50 MG HCl 50 MG t_as_ne HCl 50 MG eded} methIMAzole methIMAzole No 1{table QD methIMAzol 10 MG 10 MG t} e 10 MG Lisinopril Lisinopril No Lisinopril 40 MG 40 MG 40 MG buPROPion buPROPion No 1{table QD buPROPion HCl ER (XL) HCl ER (XL) t_in_th HCl ER 150 MG 150 MG e_morni (XL) 150 ng} MG methIMAzole methIMAzole No 1{table QD methIMAzol 10 MG 10 MG t} e 10 MG Propranolol Propranolol No 1{table BID Propranolo HCl 20 MG HCl 20 MG t} l HCl 20 MG Vital Signs Vital Name Observation Time Observation Value Comments Source height 2022-07-02 10:40:00 60 [in_i] Common S pirit [facility] weight 2022-07-02 10:40:00 189.8 [lb_av] Common Spirit [facility] temperature 2022-07-02 10:40:00 97.6 [degF] Common S pirit [facility] bmi 2022-07-02 10:40:00 37.06 kg/m2 Common [facility] oximetry 2022-07-02 10:40:00 95 % Common [facility] respiratory rate 2022-07-02 10:40:00 17 /min Comm on [facility] blood pressure 2022-07-02 10:40:00 136 mm[Hg] Common [facility] - systolic [facility] blood pressure 2022-07-02 10:40:00 68 mm[Hg] Common [facility] - diastolic [facility] height 2022-06-14 14:00:00 60 [in_i] Common [facility] weight 2022-06-14 14:00:00 193.8 [lb_av] [facility] temperature 2022-06-14 14:00:00 97.4 [degF] Common [facility] bmi 2022-06-14 14:00:00 37.84 kg/m2 [facility] oximetry 2022-06-14 14:00:00 96 % Common [facility] respiratory rate 2022-06-14 14:00:00 18 /min Comm on [facility] blood pressure 2022-06-14 14:00:00 145 mm[Hg] Common [facility] - systolic [facility] blood pressure 2022-06-14 14:00:00 75 mm[Hg] Common [facility] - diastolic [facility] height 2022-05-24 15:45:00 60 [in_i] Common [facility] weight 2022-05-24 15:45:00 199.8 [lb_av] [facility] temperature 2022-05-24 15:45:00 97.5 [degF] [facility] bmi 2022-05-24 15:45:00 39.02 kg/m2 Common [facility] oximetry 2022-05-24 15:45:00 96 % [facility] respiratory rate 2022-05-24 15:45:00 17 /min Comm on [facility] blood pressure 2022-05-24 15:45:00 133 mm[Hg] Common [facility] - systolic [facility] blood pressure 2022-05-24 15:45:00 80 mm[Hg] Common [facility] - diastolic [facility] height 2022-05-17 13:20:00 60 [in_i] Common [facility] weight 2022-05-17 13:20:00 200.8 [lb_av] [facility] temperature 2022-05-17 13:20:00 97.4 [degF] [facility] bmi 2022-05-17 13:20:00 39.21 kg/m2 [facility] oximetry 2022-05-17 13:20:00 98 % [facility] respiratory rate 2022-05-17 13:20:00 17 /min Comm on [facility] blood pressure 2022-05-17 13:20:00 137 mm[Hg] Common [facility] - systolic [facility] blood pressure 2022-05-17 13:20:00 67 mm[Hg] Common [facility] diastolic [facility] height 2022-05-01 09:20:00 60 [in_i] Common [facility] weight 2022-05-01 09:20:00 200.4 [lb_av] [facility] temperature 2022-05-01 09:20:00 97.8 [degF] Common [facility] bmi 2022-05-01 09:20:00 39.13 kg/m2 [facility] oximetry 2022-05-01 09:20:00 96 % [facility] respiratory rate 2022-05-01 09:20:00 17 /min Comm on [facility] blood pressure 2022-05-01 09:20:00 120 mm[Hg] Common [facility] - systolic [facility] blood pressure 2022-05-01 09:20:00 64 mm[Hg] [facility] - [facility] height 2022-04-10 11:40:00 60 [in_i] Common [facility] weight 2022-04-10 11:40:00 199.8 [lb_av] Common [facility] temperature 2022-04-10 11:40:00 97.2 [degF] [facility] bmi 2022-04-10 11:40:00 39.02 kg/m2 Common [facility] oximetry 2022-04-10 11:40:00 97 % Common [facility] respiratory rate 2022-04-10 11:40:00 17 /min Comm on [facility] blood pressure 2022-04-10 11:40:00 134 mm[Hg] Common [facility] - systolic [facility] blood pressure 2022-04-10 11:40:00 82 mm[Hg] Common [facility] - diastolic [facility] height 2022-02-14 11:20:00 60 [in_i] Common [facility] weight 2022-02-14 11:20:00 194.4 [lb_av] [facility] temperature 2022-02-14 11:20:00 98.6 [degF] Common S pirit [facility] bmi 2022-02-14 11:20:00 37.96 kg/m2 Common [facility] oximetry 2022-02-14 11:20:00 96 % Common [facility] respiratory rate 2022-02-14 11:20:00 16 /min Comm on [facility] blood pressure 2022-02-14 11:20:00 130 mm[Hg] Common [facility] - systolic [facility] blood pressure 2022-02-14 11:20:00 72 mm[Hg] [facility] - diastolic [facility] Systolic blood 2021-12-12 19:31:00 130 mm[Hg] Univer sity of pressure [facility] Diastolic blood 2021-12-12 19:31:00 86 mm[Hg] Unive rsity of [facility] Heart rate 2021-12-12 19:31:00 69 /min [facility]i [facility] Body height 2021-12-12 19:31:00 149.9 cm Universi ty [facility] Body weight 2021-12-12 19:31:00 85.458 kg Universi ty [facility] BMI 2021-12-12 19:31:00 38.05 kg/m2 Universi [facility] Oxygen saturation in 2021-12-12 19:31:00 97 /min [facility] Arterial blood by [facility] Pulse oximetry Branch height 2021-11-24 16:00:00 60 [in_i] [facility] weight 2021-11-24 16:00:00 184.4 [lb_av] [facility] temperature 2021-11-24 16:00:00 97.6 [degF] Common [facility] bmi 2021-11-24 16:00:00 36.01 kg/m2 [facility] oximetry 2021-11-24 16:00:00 98 % [facility] respiratory rate 2021-11-24 16:00:00 17 /min Comm on [facility] blood pressure 2021-11-24 16:00:00 132 mm[Hg] [facility] - systolic [facility] blood pressure 2021-11-24 16:00:00 74 mm[Hg] [facility] - diastolic [facility] height 2021-10-27 09:20:00 60 [in_i] Common [facility] weight 2021-10-27 09:20:00 178 [lb_av] Common [facility] bmi 2021-10-27 09:20:00 34.76 kg/m2 Common [facility] height 2021-09-29 09:20:00 60 [in_i] Common [facility] weight 2021-09-29 09:20:00 182.2 [lb_av] [facility] temperature 2021-09-29 09:20:00 97.9 [degF] [facility] bmi 2021-09-29 09:20:00 35.58 kg/m2 [facility] oximetry 2021-09-29 09:20:00 99 % [facility] respiratory rate 2021-09-29 09:20:00 16 /min Comm on [facility] blood pressure 2021-09-29 09:20:00 136 mm[Hg] [facility] systolic [facility] blood pressure 2021-09-29 09:20:00 74 mm[Hg] [facility] diastolic [facility] height 2021-09-04 11:20:00 60 [in_i] [facility] weight 2021-09-04 11:20:00 182.2 [lb_av] [facility] temperature 2021-09-04 11:20:00 97.9 [degF] [facility] bmi 2021-09-04 11:20:00 35.58 kg/m2 [facility] oximetry 2021-09-04 11:20:00 98 % Common [facility] respiratory rate 2021-09-04 11:20:00 16 /min Comm on [facility] height 2021-08-18 08:40:00 60 [in_i] [facility] weight 2021-08-18 08:40:00 184.0 [lb_av] [facility] temperature 2021-08-18 08:40:00 97.5 [degF] [facility] bmi 2021-08-18 08:40:00 35.93 kg/m2 [facility] oximetry 2021-08-18 08:40:00 95 % Common [facility] respiratory rate 2021-08-18 08:40:00 16 /min Comm on [facility] height 2021-08-07 15:00:00 60 [in_i] [facility] weight 2021-08-07 15:00:00 187.6 [lb_av] Common [facility] temperature 2021-08-07 15:00:00 97.4 [degF] Common [facility] bmi 2021-08-07 15:00:00 36.63 kg/m2 [facility] oximetry 2021-08-07 15:00:00 97 % Common [facility] respiratory rate 2021-08-07 15:00:00 18 /min Comm on [facility] blood pressure 2021-08-07 15:00:00 162 mm[Hg] Common [facility] - systolic [facility] blood pressure 2021-08-07 15:00:00 84 mm[Hg] Common [facility] diastolic [facility] Procedures Procedure Date / Time Performed Performing Clinician [facility] e CONSENT/REFUSAL FOR 2022-06-19 21:12:30 Doctor Unassigned, No [facility] DIAGNOSIS AND Name Medical Branch TREATMENT US HEAD NECK 2022-01-02 15:36:00 Ramana [facility] ASSIGNMENT OF BENEFITS 2022-01-02 14:48:17 Doctor Unassigned, No [facility] Name Medical Branch Encounters Start End Encounter Admission Attending Care Care Encounter Source Date/Time Date/Time Type Type Clinicians Facility Department ID 2022-06-28 Outpatient [facility] [id number] Common 08:15:01 Michaela [id number] [facility] 2022-06-12 Outpatient Sterling, STBLADIMIRLC STLC [id number] Common 12:28:01 Michaela [id number] [facility] 2022-05-18 Outpatient Sterling, STBLADIMIRLC STLC [id number] Common 09:20:04 Michaela [facility] 2022-04-30 Outpatient Sterling, STLMLC STLMLC [id number] Common 13:13:05 Michaela [facility] 2022-04-06 Outpatient Sterling, STLMLC STLMLC [id number] Common 14:41:02 Michaela [facility] 2022-03-07 Outpatient Sterling, STLMLC STLMLC [id number] Common 11:09:02 Michaela [facility] 2021-11-08 Outpatient Sterling, STLMLC STLMLC [id number] Common 13:20:01 Michaela [facility] 2021-10-25 Outpatient Sterling, STLMLC STLMLC [id number] Common 08:53:05 Michaela [facility] 2021-10-24 Outpatient Sterling, STLMLC STLMLC [id number] Common 09:59:07 Michaela [facility] 2021-09-27 Outpatient Sterling, STLMLC STLMLC [id number] Common 10:29:03 Michaela [facility] 2021-09-21 Outpatient Sterling, STLMLC STLMLC [id number] Common 14:37:02 Michaela [facility] 2021-08-07 Outpatient Sterling, STLMLC STLMLC [id number] Common 15:01:01 Michaela [facility] 2022-07-02 2022-07-02 OFFICE STLMLC STLMLC [id number] Co mmon 00:00:00 00:00:00 VISIT [facility] LEVEL 4 [facility] 2022-07-02 2022-07-02 Patient Ramana, WVBAILEE 1.2.840.114 [id number] Univers 00:00:00 00:00:00 Secure [facility] [id number] ity of [place] [id number] Haroon as DIDIER?BLEA [phone] Me dical [facility] [address] MEDICAL OFFICE [facility] 2022-06-19 2022-06-19 Thread Milling Machine Set Up Operator Lab, Ang - Db [facility] 1.2.840.1 14 [id number] Univers 16:00:00 16:15:00 Visit Ramana [employer] [id number] ity of [place] [id number] Haroon as DIDIER?BLEA [phone] Or lisa [facility] [address] [facility] OFFICE [facility] 2022-06-19 2022-06-19 [facility] [id number] Univers 16:00:00 16:00:00 [facility] 2022-06-19 2022-06-19 [facility] [id number] Univers 15:30:00 15:30:00 [facility] 2022-06-19 2022-06-19 Orders Doctor REMI 1.2.840.114 [id number] Univers 00:00:00 00:00:00 Only Unassigned, BARBARA [id number] ity of [facility] [id number] Haroon as [phone] [address] 2022-06-17 2022-06-17 [facility] 1.2.840.114 [id number] Univers 00:00:00 00:00:00 [employer] [id number] it y of [place] [id number] Haroon as DIDIER?BLEA [phone] Or lisa [address] MEDICAL OFFICE [facility] 2022-06-14 2022-06-14 OFFICE STLMLC STLMLC [id number] Co mmon 00:00:00 00:00:00 VISIT Spirit ESTAB PT - CHI LEVEL 5 [facility] 2022-05-24 2022-05-24 OFFICE STLMLC STLC [id number] Co mmon 00:00:00 00:00:00 VISIT NEW Spir it PT LEVEL 3 - CHI [facility] 2022-05-20 2022-05-20 [facility] 1.2.840.114 [id number] Univers 00:00:00 00:00:00 On license of [facility] [id number] it y of [place] [id number] Haroon as DIDIER?BLEA [phone] [address] OFFICE BUILDING 2022-05-17 2022-05-17 OFFICE [facility] [id number] Co mmon 00:00:00 00:00:00 VISIT Spirit ESTAB PT - CHI LEVEL 4 [facility] 2022-05-12 2022-05-12 Emergency E BRITNEY, MHBL MHBL [id number] MHBL 14:29:00 20:07:00 JAIDEN 2022-05-01 2022-05-01 OFFICE [facility] [id number] Co mmon 00:00:00 00:00:00 VISIT EST Spir it PT LEVEL 3 [facility] 2022-04-10 2022-04-10 OFFICE [facility] [id number] Co mmon 00:00:00 00:00:00 VISIT EST Spir it PT LEVEL 3 [facility] 2022-04-03 2022-04-03 Renard Coker WVBAILEE 1.2.840.114 [id number] Univers 00:00:00 00:00:00 On license of [facility] [id number] it y of [place] [id number] Haroon as DIDIER?BLEA [phone] [address] OFFICE [facility] 2022-03-09 2022-03-09 OFFICE [facility] [id number] Co mmon 00:00:00 00:00:00 VISIT Spirit ESTAB PT - CHI LEVEL 4 [facility] 2022-02-22 2022-02-22 (TEL) [facility] [id number] Co mmon 00:00:00 00:00:00 Spirit [facility] 2022-02-18 2022-02-18 Renard Coker WVBAILEE 1.2.840.114 [id number] Univers 00:00:00 00:00:00 On license of [facility] [id number] it y of [place] [id number] Haroon as DIDIER?BLEA [phone] [address] OFFICE BUILDING 2022-02-14 2022-02-14 [facility] [id number] Co mmon 00:00:00 00:00:00 VISIT EST Spir it PT LEVEL 3 - CHI [facility] 2022-01-04 2022-01-04 Telephone Ramana [facility] 1.2.958.131 [id number] Univers 00:00:00 00:00:00 [facility] [id number] it y of [place] [id number] Haroon as DIDIER?BLEA [phone] [facility] [address] MEDICAL OFFICE [facility] 2022-01-02 2022-01-02 Outpatient R RAMANA [facility] [id number] Univers 09:49:54 23:59:00 [facility] 2022-01-02 2022-01-02 [facility] 1.2.840.114 [id number] Univers 09:49:54 23:59:00 Encounter [facility] [id number] it[place] of [id number] [phone] [facility] [address] 2022-01-02 2022-01-02 Orders Doctor REMI 1.2.840.114 [id number] Univers 00:00:00 00:00:00 Only Unassigned, BARBARA [id number] ity of [place] [facility] [id number] Haroon as [phone] [facility] [address] 2021-12-12 2021-12-12 Outpatient R RAMANA [facility] [id number] Univers 15:00:00 15:56:53 [facility] 2021-12-12 2021-12-12 Thread Milling Machine Set Up Operator Lab, Ang - Db [facility] 1.2.840.1 14 [id number] Univers 15:00:00 15:15:00 Visit Ramana On license of [facility] [id number] ity of [place] [id number] Haroon as DIDIER?BLEA [phone] [facility] [address] MEDICAL OFFICE [facility] 2021-12-12 2021-12-12 Outpatient R RAMANA [facility] [id number] Univers 14:30:00 14:51:05 WENTONG ity of [facility] 2021-12-12 2021-12-12 Office Ramana WVBAILEE 1.2.840.114 [id number] Univers 14:30:00 14:51:05 Visit On license of [facility] [id number] it y of [place] [id number] Haoron as DIDIER?BLEA [phone] [address] OFFICE BUILDING 2021-11-24 2021-11-24 OFFICE STLMLC STLMLC [id number] Co mmon 00:00:00 00:00:00 VISIT Spirit ESTAB PT - CHI LEVEL 4 [facility] 2021-11-19 2021-11-19 Refill Ramana WVBAILE[facility] 1.2.840.114 [id number] Univers 00:00:00 00:00:00 On license of [facility] [id number] it y of [place] [id number] Haroon as DIDIER?BLEA [phone] [address] OFFICE BUILDING 2021-10-31 2021-10-31 (TEL) STLMLC STLMLC [id number] Co mmon 00:00:00 00:00:00 [facility] 2021-10-27 2021-10-27 OFFICE STLMLC STLMLC [id number] Co mmon 00:00:00 00:00:00 VISIT EST Spir it PT LEVEL 3 - CHI [facility] 2021-10-13 2021-10-13 Telephone Ramana WVBAILEE 1.2.350.188 [id number] Univers 00:00:00 00:00:00 [facility] [id number] [id number] [phone] [facility] AND [address] [facility] 2021-10-02 2021-10-02 Thread Milling Machine Set Up Operator Lab, Ang - Jay [facility] 1.2.840.1 14 [id number] Univers 09:30:00 09:45:00 Visit Ramana On license of [facility] [id number] ity of [place] [id number] Haroon as DIDIER?BLEA [phone] [facility] [address] MEDICAL OFFICE BUILDING 2021-10-02 2021-10-02 Outpatient R RAMANA [facility] [id number] Univers 09:30:00 09:30:00 WENTONG ity [facility] 2021-10-02 2021-10-02 Orders Doctor KHALIL 1.2.840.114 [id number] Univers 00:00:00 00:00:00 Only Unassigned, BARBARA [id number] ity of [place] [facility] [id number] Haroon as [phone] [address] 2021-09-29 2021-09-29 OFFICE STLMLC STLMLC [id number] Co mmon 00:00:00 00:00:00 VISIT EST Spir it PT LEVEL 3 - [facility] 2021-09-08 2021-09-08 Telephone [facility] 1.2.338.355 [id number] Univers 00:00:00 00:00:00 [place] [facility] [id number] [facility] [id number] Haroon as DIDIER?BLEA [phone] Or lisa GUZMÁN [address] [facility] OFFICE [facility] 2021-09-08 2021-09-08 Telephone Ramana [facility] 1.2.255.408 [id number] Univers 00:00:00 00:00:00 [employer] 350.1.13.10 it [facility] [id number] Haroon as DIDIER?BLEA [phone] Or lisa GUZMÁN [address] MEDICAL OFFICE [facility] 2021-09-05 2021-09-05 Outpatient R RAMANA [facility] [id number] Univers 15:30:00 16:21:36 [place] ity [facility] 2021-09-05 2021-09-05 Office [facility] 1.2.840.114 [id number] Univers 15:30:00 16:21:36 Visit [facility] 350.1.13.10 it y of [place] [id number] Haroon as DIDIER?BLEA [phone] Or lisa GUZMÁN [address] [place] [address] OFFICE [facility] 2021-09-04 2021-09-04 Orders Doctor KHALIL 1.2.840.114 [id number] Univers 00:00:00 00:00:00 Only Unassigned, BARBARA 350.1.13.10 ity of [facility] [id number] Haroon as [phone] [address] 2021-09-04 2021-09-04 OFFICE STLMLC STLMLC [id number] Co mmon 00:00:00 00:00:00 VISIT [facility] ESTAB PT - CHI LEVEL 4 [facility] 2021-08-25 2021-08-25 Orders Doctor KHALIL 1.2.840.114 [id number] Univers 00:00:00 00:00:00 Only Unassigned, BARBARA 350.1.13.10 ity of [facility] [id number] Haroon as [phone] [address] 2021-08-24 2021-08-24 (TEL) STLMLC STLMLC [id number] Co mmon 00:00:00 00:00:00 Spirit - CHI [facility] 2021-08-18 2021-08-18 OFFICE STLMLC STLMLC [id number] Co mmon 00:00:00 00:00:00 VISIT Spirit ESTAB PT - CHI LEVEL [address] [place] [address] 2021-08-07 2021-08-07 OFFICE STLMLC STLMLC [id number] Co mmon 00:00:00 00:00:00 VISIT NEW Spir it PT LEVEL 4 - CHI [facility] 2021-03-09 2021-03-09 Nurse Therapy, Adc Covid Infusion [facility] 1.2.840.114 [id number] Univers 14:57:54 15:57:54 Visit Juliano Chan [id number] ity [facility] [id number] [phone] [facility] [address] 2021-03-09 2021-03-09 Outpatient [place] CHAN [facility] [id number] Univers 15:00:00 15:00:00 JULIANO nieto of [facility] 2021-03-09 2021-03-09 Orders Doctor KHALIL 1.2.840.114 [id number] Univers 00:00:00 00:00:00 Only Unassigned, BARBARA 350.1.13.10 ity of [place] [facility] 4.2.7.2.686 Haroon as [phone] [facility] [address] Results This patient has no known results.
[2022-07-17] MEDS ORDERED: MORPHINE 4 MG/ML SYR ONE (10:35)
[2022-07-17] MEDS ORDERED: ONDANSETRON 4 MG/2 ML VIAL ONE ×2 (10:35→12:47)
[2022-07-17] MEDS ORDERED: LORazepam 2 MG/ML VIAL ONE (10:35)
[2022-07-17] MEDS ORDERED: NA CHLORIDE 0.9% 1,000 ML ONE (10:36)
[2022-07-17 10:55] LABS: Urine Blood 3+ (Negative); Urine Glucose Negative (Negative); Urine Protein 2+ (Negative)
[2022-07-17 11:03] LABS: Absolute Lymphocytes (CBC) 2.2 K/uL (0.7-4.9); Hematocrit 35.3 % (36.0-45.0); Lymphocytes % 15.8 % (15.3-44.8); MCV 83.5 fL (80-100); MPV 8.3 fL (7.6-11.3); RBC Red Blood Cell Count 4.22 M/uL (3.86-4.86)
[2022-07-17 11:17] LABS: Albumin 2.9 g/dL (3.4-5.0); Bilirubin Total 0.4 mg/dL (0.2-1.0); Potassium 3.8 mmol/L (3.5-5.1); Protein, Total 7.7 g/dL (6.4-8.2)
[2022-07-17 11:28] LABS: Urine Bacteria None Seen /HPF (<20); Urine Mucus Slight /HPF (None Seen); Urine RBC >50 /HPF (None Seen)
--- NOTE | 2022-07-17 11:30 | RAD REPORT ---
EXAM DESCRIPTION: CT - Abdomen Pelvis W Contrast - 07/17/2022 10:55 am CLINICAL HISTORY: left sided abdominal pain COMPARISON: No comparisons TECHNIQUE: Biphasic, helical CT imaging of the abdomen and pelvis was performed following 100 ml non -ionic IV contrast. Oral contrast: No. All CT scans are performed using dose optimization technique as appropriate and may include automated exposure control or mA/KV adjustment according to patient size. FINDINGS: No suspicious findings in the lung bases. The liver, spleen, and pancreas show no suspicious findings. Gallbladder and biliary tree are also wi thout suspicious finding. Normal function of the right kidney is seen with no right-sided hydronephrosis. No right renal or ure teral finding. Double pigtail stent is in place in the left collecting system. There is marked hydron ephrosis of the pelvis and calices of the left kidney. A mass at the left UPJ is present approximatel y 3 cm in size. This matches the history. More distally the ureter is not dilated. No pyelonephritis. No solid mass of the renal parenchyma. Urinary bladder is only partially filled. No bladder abnormal ity seen. No adrenal abnormalities. Uterus and ovaries show no suspicious findings. No dilated bowel loops or bowel wall thickening. No free air, free fluid or inflammatory stranding. No hernia. No omental thickening identified. Extensive abnormal periaortic/ pericaval bulky lymphadenopathy is present. There is a 2.1 centimeter periaortic lymph nodes superior to the celiac artery. Most of the lymphadenopathy is the renal vascul ar level with bulky confluent adenopathy up to 4.5 cm in diameter. Minimal subcentimeter adenopathy i n the proximal iliac chains. There is some congestion and edema of the perinephric fat near the UPJ. No suspicious bony findings. IMPRESSION: Approximately 3 centimeter mass at the left UPJ believed to be a known finding matching the provided history. Marked hydronephrosis of the left renal pelvis and calices proximal to the obs tructing mass. Double pigtail stent is in place traversing the mass. Proximal pigtail appears well positioned and an anterior mid left renal calyx. Extensive pathologic periaortic/pericaval bulky lymphadenopathy. 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 No abnormality of the right-side system.
[2022-07-17] MEDS ORDERED: MAGNES/ALUMIN/SIMET 30ML UCUP ONE (12:05)
[2022-07-17] MEDS ORDERED: LIDOCAINE VISCOUS 2% SOLN 15 ML UDC ONE (12:05)
[2022-07-17] MEDS ORDERED: HYDROMORPHONE HCL 1 MG/ML INJ ONE (14:31)
--- NOTE | 2022-07-17 15:18 | EDPHYS ---
Physician Documentation [facility] Name: Debbi Pinon Age: 51 yrs Sex: Female : 1970 Arrival Date: 07/17/2022 Time: 09:49 Bed 14 Private MD: ED Physician Marcellus Foley HPI: 07/17 10:10 This 51 yrs old Female presents to ER via Ambulatory with complaints of jmm Nausea, Abdominal Pain. 10:10 The patient presents to the emergency department with nausea, abdominal pain. Onset: jmm The symptoms/episode began/occurred gradually, 2 day(s) ago. Possible causes: unknown. This is a 51-year-old female with history of hypertension, stage IV stomach cancer that presents emerged part with complaints of abdominal pain and nausea symptoms began after she was prescribed Tylenol with codeine. Denies any diarrhea. Patient also recently had a ureteral stent put in secondary to a mass in the left kidney. Denies dysuria but states she still has some hematuria.. 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 - Social history:: Smoking status: Patient denies any tobacco usage or history of. Patient/guardian denies using alcohol. ROS: 10:10 Constitutional: Negative for fever, chills, and weight loss, Cardiovascular: Negative jmm for chest pain, palpitations, and edema, Respiratory: Negative for shortness of breath, cough, wheezing, and pleuritic chest pain. 10:10 Abdomen/GI: Positive for abdominal pain, nausea and vomiting. 10:10 All other systems are negative. Exam: 10:10 Constitutional: This is a well developed, well nourished patient who is awake, alert, jmm and in no acute distress. Head/Face: atraumatic. Eyes: EOMI, no conjunctival erythema appreciated ENT: Moist Mucus Membranes Neck: Trachea midline, Supple Chest/axilla: Normal chest wall appearance and motion. Cardiovascular: Regular rate and rhythm. No edema appreciated Respiratory: Normal respirations, no respiratory distress appreciated 10:10 Back: Normal ROM Skin: General appearance color normal MS/ Extremity: Moves all extremities, no obvious deformities appreciated, no edema noted to the lower extremities Neuro: Awake and alert Psych: Behavior is normal, Mood is normal, Patient is cooperative and pleasant 10:10 Abdomen/GI: Inspection: abdomen appears normal, Bowel sounds: normal, Palpation: soft, mild abdominal tenderness, in the left upper quadrant and left lower quadrant. Vital Signs: 10:10 Pulse 109; Resp 18; Temp 98.9(O); Pulse Ox 97% on R/A; Weight 68.04 kg; Height 5 ft. 0 ld1 in. (152.40 cm); Pain 10/10; 10:13 BP 153 / 86; ld1 11:30 BP 134 / 71; Pulse 90; Resp 18; Pulse Ox 98% on R/A; ph 13:00 BP 122 / 78; Pulse 89; Resp 18; Pulse Ox 96% on R/A; ph 14:30 BP 130 / 70; Pulse 84; Resp 16; Pulse Ox 99% on 2 lpm NC; ph 16:00 BP 128 / 70; Pulse 81; Resp 16; Temp 97.9; Pulse Ox 97% on R/A; ph 10:10 Body Mass Index 29.29 (68.04 kg, 152.40 cm) ld1 MDM: 10:10 Patient medically screened. [facility] 15:17 Data reviewed: vital signs, nurses notes. I considered the following discharge [facility] prescriptions or medication management in the emergency department Medications were administered in the Emergency Department. See MAR. Care significantly affected by the following chronic conditions: Stomach cancer. Counseling: I had a detailed discussion with the patient and/or guardian regarding: the historical points, exam findings, and any diagnostic results supporting the discharge/admit diagnosis, radiology results, the need for outpatient follow up, to return to the emergency department if symptoms worsen or persist or if there are any questions or concerns that arise at home. 07/17 10:11 Order name: CBC with Diff; Complete Time: 11:30 [facility] 07/17 10:11 Order name: CMP; Complete Time: 11:30 [facility] 07/17 10:11 Order name: Lipase; Complete Time: 11: [facility] 07/17 10:54 Order name: Urine Microscopic Only; Complete Time: 11: 07/17 10:55 Order name: Urine Dipstick-Ancillary; Complete Time: 10:57 EDMS 07/17 11:09 Order name: CREATININE WHOLE BLOOD; Complete Time: 11:30 EDMI 07/17 10:11 Order name: CT Abd/Pelvis - IV Contrast Only; Complete Time: 11:36 [facility] 07/17 10:11 Order name: IV Saline Lock; Complete Time: 10:55 [facility] 07/17 10:11 Order name: Labs collected and sent; Complete Time: 10:55 jmm Administered Medications: 10:45 Drug: NS 0.9% 1000 ml Route: IV; Rate: 1 bolus; Site: left antecubital; ph 12:50 Follow up: Response: No adverse reaction; IV Status: Completed infusion; IV Intake: ph 1000ml 10:45 Drug: Zofran (Ondansetron) 4 mg Route: IVP; Site: left antecubital; ph 12:50 Follow up: Response: No adverse reaction ph 10:47 Drug: Ativan (LORazepam) 0.5 mg Route: IVP; Site: left antecubital; ph 12:50 Follow up: Response: No adverse reaction; Anxiety decreased ph 10:48 Drug: morphine 4 mg Route: IVP; Infused Over: 4 mins; Site: left antecubital; ph 12:50 Follow up: Response: No adverse reaction; Pain is decreased; RASS: Alert and Calm (0) ph 12:07 Drug: GI Cocktail without - (Maalox Suspension 30 ml, Lidocaine Liquid 2 % 15 ph ml) Route: PO; 16:09 Follow up: Response: No adverse reaction ph 12:49 Drug: Zofran (Ondansetron) 4 mg Route: IVP; Site: left antecubital; ph 13:00 Follow up: Response: No adverse reaction ph 14:42 Drug: Dilaudid (HYDROmorphone) 1 mg Route: IVP; Site: left antecubital; ph 15:00 Follow up: Response: No adverse reaction; Pain is decreased; RASS: Drowsy (-1) ph 15:29 CANCELLED (Duplicate Order): Promethazine 12.5 mg IVP once [facility] 15:40 Drug: Promethazine 25 mg Route: IM; Site: right vastus lateralis; ph 16:08 Follow up: Response: No adverse reaction; Nausea is decreased; Vomiting decreased ph Disposition: 18:13 Co-signature as Attending Physician, Marcellus Foley DO I was immediately available on-site ms3 in the Emergency Department for consultation in the care of the patient. Disposition Summary: 07/17/22 15:18 Discharge Ordered Location: Home [facility] Condition: Stable [facility] Diagnosis - Abdominal pain, unspecified jmm Followup: [facility] - With: Private Physician - When: Tomorrow - Reason: Recheck today's complaints, Continuance of care, Re-evaluation by your physician Discharge Instructions: - Discharge Summary Sheet [facility] - Abdominal Pain, Adult [facility] Forms: - Medication Reconciliation Form [facility] - Thank You Letter [facility] - Antibiotic Education [facility] - Prescription Opioid Use [facility] Prescriptions: - Carafate 1 gram Oral Tablet - take 1 tablet by ORAL route 4 times per day take on an empty stomach, beginning jmm on waking and last dose at bedtime; 100 tablet; Refills: 0, Product Selection Permitted - Pepcid 20 mg Oral Tablet - take 1 tablet by ORAL route every 12 hours for 10 days; 20 tablet; Refills: 0, [facility] Product Selection Permitted - Tramadol 50 mg Oral Tablet - take 1 tablet by ORAL route every 8 hours as needed; 12 tablet; Refills: 0, [facility] Product Selection Permitted Signatures: Dispatcher [employer] Kenny Reyes PA PA jmm Hall, Patricia, RN RN Marcellus Foley DO DO ms3 Arely Figueroa RN RN ld1 Corrections: (The following items were deleted from the chart) 10:12 10:11 Allergies: No Known Allergies; ld1 ld1 15:29 15:29 Promethazine 12.5 mg IVP once ordered. [facility]
--- NOTE | 2022-07-17 15:18 | ER ---
Nurse's Notes [facility] Name: Debbi Pinon Age: 51 yrs Sex: Female : 1970 Arrival Date: 07/17/2022 Time: 09:49 Bed 14 Private MD: Diagnosis: Abdominal pain, unspecified Presentation: 07/17 10:10 Chief complaint: Patient states: Nausea, abdominal pain X 1 day. LLQ. Coronavirus ld1 screen: At this time, the client does not indicate any symptoms associated with coronavirus-19. Ebola Screen: No symptoms or risks identified at this time. Initial Sepsis Screen: Does the patient meet any 2 criteria? No. Patient's initial sepsis screen is negative. Does the patient have a suspected source of infection? No. Patient's initial sepsis screen is negative. Risk Assessment: Do you want to hurt yourself or someone else? Patient reports no desire to harm self or others. Onset of symptoms was July 17, 2022. 10:10 Method Of Arrival: Ambulatory ld1 10:10 Acuity: KELVIN 3 ld1 Triage Assessment: 10:11 General: Appears in no apparent distress. comfortable, Behavior is calm, cooperative, ld1 appropriate for age. Pain: Complains of pain in left lower quadrant Pain does not radiate. Pain currently is 10 out of 10 on a pain scale. Quality of pain is described as throbbing. EENT: No signs and/or symptoms were reported regarding the EENT system. Neuro: Level of Consciousness is awake, alert, obeys commands, Oriented to person, place, time, situation. Cardiovascular: Capillary refill < 3 seconds Patient's skin is warm and dry. Respiratory: Airway is patent Respiratory effort is even, unlabored. GI: Abdomen is round non-distended, Reports lower abdominal pain. : No signs and/or symptoms were reported regarding the genitourinary system. Derm: No signs and/or symptoms reported regarding the dermatologic system. Musculoskeletal: No signs and/or symptoms reported regarding the musculoskeletal system. 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 - Social history:: Smoking status: Patient denies any tobacco usage or history of. Patient/guardian denies using alcohol. Screenin:18 [facility] ED Fall Risk Assessment (Adult) History of falling in the last 3 months, ph including since admission No falls in past 3 months (0 pts) Confusion or Disorientation No (0 pts) Intoxicated or Sedated No (0 pts) Impaired Gait No (0 pts) Mobility Assist Device Used No (0 pt) Altered Elimination No (0 pt) Score/Fall Risk Level 0 - 2 = Low Risk Oriented to surroundings, Maintained a safe environment, Hourly rounding (assess needs \T\ fall precautionary measures) done. Abuse screen: Denies threats or abuse. Denies injuries from another. Nutritional screening: No deficits noted. Tuberculosis screening: No symptoms or risk factors identified. Assessment: 10:56 General: Appears in no apparent distress. uncomfortable, Behavior is cooperative, ph appropriate for age. Pain: Complains of pain in left lower quadrant. Neuro: Level of Consciousness is awake, alert, obeys commands, Oriented to person, place, time, situation. Cardiovascular: Capillary refill < 3 seconds in bilateral fingers. Respiratory: Airway is patent Respiratory effort is even, unlabored. GI: Abdomen is round non-distended, Reports lower abdominal pain, nausea, Patient currently denies vomiting. Derm: Skin is healthy with good turgor, Skin is pink, warm \T\ dry. Musculoskeletal: Circulation, motion, and sensation intact. Range of motion: intact in all extremities. 13:47 Reassessment: Patient appears in no apparent distress at this time. Patient and/or ph family updated on plan of care and expected duration. Pain level reassessed. Patient is alert, oriented x 3, equal unlabored respirations, skin warm/dry/pink. 15:30 Reassessment: Pt placed up for d/c but continues to report nausea, small amount of ph vomiting noted, ERP notified and IM nausea medication ordered, will d/c pt once N/V has improved. 16:11 Reassessment: D/C home w/ friend Patient states symptoms have improved. ph Vital Signs: 10:10 Pulse 109; Resp 18; Temp 98.9(O); Pulse Ox 97% on R/A; Weight 68.04 kg; Height 5 ft. 0 ld1 in. (152.40 cm); Pain 10/10; 10:13 BP 153 / 86; ld1 11:30 BP 134 / 71; Pulse 90; Resp 18; Pulse Ox 98% on R/A; ph 13:00 BP 122 / 78; Pulse 89; Resp 18; Pulse Ox 96% on R/A; ph 14:30 BP 130 / 70; Pulse 84; Resp 16; Pulse Ox 99% on 2 lpm NC; ph 16:00 BP 128 / 70; Pulse 81; Resp 16; Temp 97.9; Pulse Ox 97% on R/A; ph 10:10 Body Mass Index 29.29 (68.04 kg, 152.40 cm) ld1 ED Course: 09:49 Patient arrived in ED. rg4 09:50 Kenny Salas PA is PHCP. [facility] 09:50 Marcellus Foley DO is Attending Physician. jmm 10:11 Triage completed. ld1 10:11 Arm band placed on right wrist. ld1 10:18 Rachel Appiah, RN is Primary Nurse. ph 10:45 Initial lab(s) drawn, by vt, sent to lab. Urine collected:. Inserted saline lock: 22 ph gauge in left antecubital area, using aseptic technique. Blood collected. 10:56 CT Abd/Pelvis - IV Contrast Only In Process Unspecified. EDMS 10:58 Patient has correct armband on for positive identification. Bed in low position. Call ph light in reach. Side rails up X 1. Pulse ox on. NIBP on. Door closed. Noise minimized. 13:49 No provider procedures requiring assistance completed. ph 16:08 IV discontinued, intact, bleeding controlled, No redness/swelling at site. Pressure ph dressing applied. Administered Medications: 10:45 Drug: NS 0.9% 1000 ml Route: IV; Rate: 1 bolus; Site: left antecubital; ph 12:50 Follow up: Response: No adverse reaction; IV Status: Completed infusion; IV Intake: ph 1000ml 10:45 Drug: Zofran (Ondansetron) 4 mg Route: IVP; Site: left antecubital; ph 12:50 Follow up: Response: No adverse reaction ph 10:47 Drug: Ativan (LORazepam) 0.5 mg Route: IVP; Site: left antecubital; ph 12:50 Follow up: Response: No adverse reaction; Anxiety decreased ph 10:48 Drug: morphine 4 mg Route: IVP; Infused Over: 4 mins; Site: left antecubital; ph 12:50 Follow up: Response: No adverse reaction; Pain is decreased; RASS: Alert and Calm (0) ph 12:07 Drug: GI Cocktail without - (Maalox Suspension 30 ml, Lidocaine Liquid 2 % 15 ph ml) Route: PO; 16:09 Follow up: Response: No adverse reaction ph 12:49 Drug: Zofran (Ondansetron) 4 mg Route: IVP; Site: left antecubital; ph 13:00 Follow up: Response: No adverse reaction ph 14:42 Drug: Dilaudid (HYDROmorphone) 1 mg Route: IVP; Site: left antecubital; ph 15:00 Follow up: Response: No adverse reaction; Pain is decreased; RASS: Drowsy (-1) ph 15:29 CANCELLED (Duplicate Order): Promethazine 12.5 mg IVP once [facility] 15:40 Drug: Promethazine 25 mg Route: IM; Site: right vastus lateralis; ph 16:08 Follow up: Response: No adverse reaction; Nausea is decreased; Vomiting decreased ph Medication: 10:18 VIS not applicable for this client. ph Intake: 12:50 IV: 1000ml; Total: 1000ml. ph Outcome: 15:18 Discharge ordered by . [facility] 16:06 Discharged to home with friend. ph 16:06 Condition: good 16:06 Discharge instructions given to patient, Instructed on discharge instructions, follow up and referral plans. medication usage, Demonstrated understanding of instructions, follow-up care, medications, Prescriptions given X 3. 16:11 Patient left the ED. ph Signatures: Dispatcher [employer] EDMS Kenny Salas PA PA jmm Hall, Patricia, RN RN ph Bridget Sparrow 4 Arely Figueroa RN RN ld1 Corrections: (The following items were deleted from the chart) 10:12 10:11 Allergies: No Known Allergies; ld1 ld1
[2022-07-17] MEDS ORDERED: PROMETHAZINE INJ 25 MG/ML AMP ONE (15:34)
[2022-07-17 17:01] VITALS: BP 128/70; TEMP 97.9; O2SAT 97
== END 2022-07-17 16:11 | disposition home or self-care (01) ==
LOC: ER 09:45
DX: R10.32 Left lower quadrant pain (principal); R11.0 Nausea; I10 Essential (primary) hypertension; Z85.028 Personal history of other malignant neoplasm of stomach
CPT/HCPCS: 85025; 36415; 82565; 83690; 80053; 74177; Q9967; J2550; J1170; J7030; J2405 ×2; 81003; 81015

== ENCOUNTER 2022-07-19 04:57 | Emergency (ER) | payer OTHER ==
--- OUTSIDE RECORDS SUMMARY | 2022-07-19 05:01 | XMS REPORT | Continuity of Care Document ---
:1970 Author Organization [facility] t Address [address] [place] [address] Care Team Providers Name Role Phone Michaela Sterling MD Primary Care Physician Michaela Sterling Attending Clinician Unavailable RANJIT COKER Attending Clinician Unavailable Ranjit Coker MD Attending Clinician Lab, Ang - Db Attending Clinician Unavailable Doctor Unassigned, [place] Attending Clinician Unavailable JAIDEN TAN Attending Clinician [...] Graves Graves Disease Active Univers disease disease 3- ity of 00:00: [place] 00 Medical Branch Goiter Goiter Disease Active Univers diffuse diffuse 3-29 ity of 00:00: [address] Branch [id number] Hydronephr Problem Com mon osis, left Spirit - [facility] [id number] Nausea Problem Common [facility] - [facility] [id number] Mass of Problem Common ureter Spirit - [facility] [id number] Left lower Problem Co mmon quadrant Spirit abdominal - [facility] pain [facility] [id number] Secondary Problem Com mon malignant Spirit neoplasm - [facility] of other 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 - CHI ureter [facility] [id number] Current Problem Common severe Spirit episode of - [facility] major [facility] psychotic features without prior episode [id number] Other Problem Common obesity Spirit due to - [facility] excess [facility] [id number] EZEQUIEL Problem Common (generaliz Spirit ed anxiety - CHI disorder) [facility] [id number] Essential Problem Comm on (primary) Spirit hypertensi - [facility] on [facility] [id number] Hypertrigl Problem Co mmon yceridemia [facility] - [facility] [id number] Hyperthyro Problem Com mon idism [facility] Allergies, Adverse Reactions, Alerts Allergy Allergy Status Severity Reaction(s) Onset Inactive Treating Comm ents Source Name Type Date Date Clinician NO KNOWN Drug Active Univers ALLERGIE Class ity of [facility] Social History Social Habit Start Date Stop Date Quantity Comments Source History of Tobacco [facility] - [facility] Use [facility] Sex Assigned At Common Sp darwin - [facility] Exposure to 2022-06-09 2022-06-19 Not sure [facility] SARS-CoV-2 (event) 00:00:00 15:12:00 Medica l Branch Smoking Status Start Date Stop Date Source Tobacco smoking consumption [facility] Medical unknown Branch Never Smoker [facility] Medications Ordered Filled Start Stop Current Ordering Indication Dosage Frequency Signature Comments Components Source Medication Medication Date Date Medication? Clinician (SIG) Name Name diazePAM 10 diazePAM 10 No QD diazePAM MG MG 1-23 10 MG 00:00: 00 diazePAM 10 diazePAM 10 No QD diazePAM MG MG 1-23 10 MG 00:00: 00 methIMAzole 2021-06 Yes [id number] TAKE 1 Univers 10 mg 2-11 TABLET BY ity of tablet 00:00: MOUTH TWICE A Medical DAY Branch methIMAzole 2021-06 Yes [id number] TAKE 1 Univers 10 mg 2-11 TABLET BY ity of tablet 00:00: MOUTH TWICE A Medical DAY Branch methIMAzole 2021-06 Yes [id number] TAKE 1 Univers 10 mg 2-11 TABLET BY ity of tablet 00:00: MOUTH [place] TWICE A Medical DAY Branch Ondansetron Ondansetron [...] Ondansetro HCl 8 MG HCl 8 MG 07-18 t_as_ne n HCl 8 MG 00:00: eded} 00 traMADol traMADol 2021-06- No 1{table TID traMADol HCl 50 MG HCl 50 MG 07-18 t_as_ne HCl 50 MG 00:00: 00:00 eded} 00 :00 traMADol traMADol 2021-06- No 1{table TID traMADol HCl 50 MG HCl 50 MG 07-18 t_as_ne HCl 50 MG 00:00: 00:00 eded} 00 :00 PROPRANOLOL 2021-06 Yes [id number] 20mg TAKE 1 Univers 20 mg 0-25 TABLET BY ity of tablet 00:00: MOUTH IN [place] [address] THE Medical MORNING Branch AND 1 TABLET IN THE EVENING. PROPRANOLOL 2021-06 Yes [id number] 20mg TAKE 1 Univers 20 mg 0-25 TABLET BY ity of tablet 00:00: MOUTH IN [place] [address] THE [facility] MORNING Branch AND 1 TABLET IN THE EVENING. PROPRANOLOL 2021-06 Yes [id number] 20mg TAKE 1 Univers 20 mg 0-25 TABLET BY ity of tablet 00:00: MOUTH IN [place] [address] THE Medical MORNING Branch AND 1 TABLET IN THE EVENING. PROPRANOLOL 2021-06 Yes [id number] 20mg TAKE 1 Univers 20 mg 0-25 TABLET BY ity of tablet 00:00: MOUTH IN [place] [address] THE [facility] MORNING Branch AND 1 TABLET IN THE EVENING. Sertraline Sertraline No 1{table QD Sertraline HCl 25 MG HCl 25 MG 9-30 t} HCl 25 MG 00:00: 00 Sertraline Sertraline 2021-0 No 1{table QD Sertraline HCl 25 MG HCl 25 MG 9-30 t} HCl 25 MG 00:00: 00 METHIMAZOLE 2021-0 Yes [id number] TAKE 1 Univers 10 mg 9-11 TABLET BY ity of tablet 00:00: MOUTH [place] 00 TWICE A Medical DAY Branch METHIMAZOLE 2021-0 Yes [id number] TAKE 1 Univers 10 mg 9-11 TABLET BY ity of tablet 00:00: MOUTH [place] 00 TWICE A Medical DAY Branch METHIMAZOLE 2021-0 2021- No [id number] TAKE 1 Univers 10 mg 9-11 12-11 TABLET BY ity of tablet 00:00: 00:00 MOUTH [place] 00 :00 TWICE A Medical DAY Branch Cephalexin Cephalexin 2022-0 2022- No 1{table BID Cephalexin 500 MG 500 MG 02-14 09-14 t} 500 MG 00:00: 00:00 00 :00 propranoloL 2022-0 Yes [id number] 20mg Take 1 Univers 20 mg 7-28 tablet by ity of tablet 00:00: mouth in [place] 00 the Medical morning Branch and 1 tablet in the evening. propranoloL 2022-0 Yes [id number] 20mg Take 1 Univers 20 mg 7-28 tablet by ity of tablet 00:00: mouth in [place] 00 the Medical morning Branch and 1 tablet in the evening. propranoloL 2022-0 2022- No [id number] 20mg Take 1 Univers 20 mg 7-28 10-25 tablet by ity of tablet 00:00: 00:00 mouth in [place] 00 :00 the Medical morning Branch and 1 tablet in the evening. PROPRANOLOL 2-0 Yes [id number] TAKE 1 Univers 20 mg 6-12 TABLET BY ity of tablet 00:00: MOUTH [place] 00 TWICE A Medical DAY Branch METHIMAZOLE 2022-0 Yes [id number] TAKE 1 Univers 10 mg 6-12 TABLET BY ity of tablet 00:00: MOUTH [place] 00 TWICE A Medical DAY Branch PROPRANOLOL 2022-0 Yes [id number] TAKE 1 Univers 20 mg 6-12 TABLET BY ity of tablet 00:00: MOUTH [place] 00 TWICE A Medical DAY Branch METHIMAZOLE 2022-0 Yes [id number] TAKE 1 Univers 10 mg 6-12 TABLET BY ity of tablet 00:00: MOUTH [place] 00 TWICE A Medical DAY Branch PROPRANOLOL 2022-0 Yes [id number] TAKE 1 Univers 20 mg 6-12 TABLET BY ity of tablet 00:00: MOUTH [place] 00 TWICE A Medical DAY Branch METHIMAZOLE 2022-0 Yes [id number] TAKE 1 Univers 10 mg 6-12 TABLET BY ity of tablet 00:00: MOUTH [place] 00 TWICE A Medical DAY Branch PROPRANOLOL 2022-0 Yes [id number] TAKE 1 Univers 20 mg 6-12 TABLET BY ity of tablet 00:00: MOUTH [place] 00 TWICE A Medical DAY Branch METHIMAZOLE 2022-0 Yes [id number] TAKE 1 Univers 10 mg 6-12 TABLET BY ity of tablet 00:00: MOUTH [place] 00 TWICE A Medical DAY Branch METHIMAZOLE 2022-0 Yes [id number] TAKE 1 Univers 10 mg 6-12 TABLET BY ity of tablet 00:00: MOUTH [place] 00 TWICE A Medical DAY Branch METHIMAZOLE 2021-0 2021- No [id number] TAKE 1 Univers 10 mg 6-12 09-11 TABLET BY ity of tablet 00:00: 00:00 MOUTH [place] 00 :00 TWICE A Medical DAY Branch PROPRANOLOL 2021-0 2021- No [id number] TAKE 1 Univers 20 mg 6-12 07-28 TABLET BY ity of tablet 00:00: 00:00 MOUTH [place] 00 :00 TWICE A Medical DAY Branch buPROPion buPROPion 0 No 1{table QD buPROPion HCl ER (XL) HCl ER (XL) 5-20 t_in_th HCl ER 300 MG 300 MG 00:00: e_morni (XL) 300 00 ng} MG buPROPion buPROPion No 1{table QD buPROPion HCl ER (XL) HCl ER (XL) 5-20 t_in_th HCl ER 300 MG 300 MG 00:00: e_morni (XL) 300 00 ng} MG amLODIPine 0 Yes Univers 10 mg 3-28 ity of tablet 00:00: [address] Branch buPROPion Yes Univers XL 150 mg 3-28 ity of 24 hr 00:00: [place] tablet Medical Branch lisinopriL Yes Univers 40 mg 3-28 ity of tablet 00:00: [place] Medical Branch amLODIPine Yes Univers 10 mg 3-28 ity of tablet 00:00: [address] Branch buPROPion Yes Univers XL 150 mg 3-28 ity of 24 hr 00:00: [place] tablet Medical Branch lisinopriL 0 Yes Univers 40 mg 3-28 ity of tablet 00:00: [place] [address] Medical Branch amLODIPine 2021-0 Yes Univers 10 mg 3-28 ity of tablet 00:00: [place] [facility] Branch buPROPion 0 Yes Univers XL 150 mg 3-28 ity of 24 hr 00:00: [place] tablet Medical Branch lisinopriL 0 Yes Univers 40 mg 3-28 ity of tablet 00:00: [address] Branch amLODIPine 2021-0 Yes Univers 10 mg 3-28 ity of tablet 00:00: [place] 00 Medical Branch buPROPion Yes Univers XL 150 mg 3-28 ity of 24 hr 00:00: [place] tablet Medical Branch lisinopriL 0 Yes Univers 40 mg 3-28 ity of tablet 00:00: [place] Medical Branch amLODIPine 0 Yes Univers 10 mg 3-28 ity of tablet 00:00: [place] Medical Branch buPROPion 0 Yes Univers XL 150 mg 3-28 ity of 24 hr 00:00: [place] tablet Medical Branch lisinopriL 0 Yes Univers 40 mg 3-28 ity of tablet 00:00: [place] Medical Branch amLODIPine 0 Yes Univers 10 mg 3-28 ity of tablet 00:00: [place] Medical Branch buPROPion Yes Univers XL 150 mg 3-28 ity of 24 hr 00:00: [place] tablet Medical Branch lisinopriL Yes Univers 40 mg 3-28 ity of tablet 00:00: [place] [address] Medical Branch amLODIPine Yes Univers 10 mg 3-28 ity of tablet 00:00: [place] Medical Branch buPROPion Yes Univers XL 150 mg 3-28 ity of 24 hr 00:00: [place] tablet Medical Branch lisinopriL Yes Univers 40 mg 3-28 ity of tablet 00:00: [place] [address] Medical Branch amLODIPine 0 Yes Univers 10 mg 3-28 ity of tablet 00:00: [place] [address] Medical Branch buPROPion Yes Univers XL 150 mg 3-28 ity of 24 hr 00:00: [place] tablet Medical Branch lisinopriL 0 Yes Univers 40 mg 3-28 ity of tablet 00:00: [place] Medical Branch amLODIPine 2021-0 Yes Univers 10 mg 3-28 ity of tablet 00:00: [place] Medical Branch buPROPion 2021-0 Yes Univers XL 150 mg 3-28 ity of 24 hr 00:00: [place] tablet Medical Branch lisinopriL 0 Yes Univers 40 mg 3-28 ity of tablet 00:00: [place] [address] Medical Branch amLODIPine 2021-0 Yes Univers 10 mg 3-28 ity of tablet 00:00: [place] Medical Branch buPROPion 2021-0 Yes Univers XL 150 mg 3-28 ity of 24 hr 00:00: [place] tablet 00 Medical Branch lisinopriL 2021-0 Yes Univers 40 mg 3-28 ity of tablet 00:00: 00 Medical Branch amLODIPine 2021-0 Yes Univers 10 mg 3-28 ity of tablet 00:00: 00 Medical Branch buPROPion 2021-0 Yes Univers XL 150 mg 3-28 ity of 24 hr 00:00: [place] tablet 00 Medical Branch lisinopriL 2021-0 Yes Univers 40 mg 3-28 ity of tablet 00:00: [place] Medical Branch amLODIPine 2021-0 Yes Univers 10 mg 3-28 ity of tablet 00:00: [place] Medical Branch buPROPion 2021-0 Yes Univers XL 150 mg 3-28 ity of 24 hr 00:00: [place] tablet Medical Branch lisinopriL 2021-0 Yes Univers 40 mg 3-28 ity of tablet 00:00: [place] [facility] Branch amLODIPine amLODIPine 2021-0 No 1{table QD amLODIPine [...] Besylate MG MG 00:00: 10 MG 00 SERTraline Yes TAKE 1 Unive rs 25 mg [...] 3-11 TABLET BY ity of tablet 00:00: [facility] EVERY DAY Medical FOR 30 Branch DAYS SERTraline 2021-0 Yes TAKE 1 Unive rs 25 mg 3-11 TABLET BY ity of tablet 00:00: EVERY DAY Medical FOR 30 Branch DAYS SERTraline 2021-0 Yes TAKE 1 Unive rs 25 mg 3-11 TABLET BY ity of tablet 00:00: [facility] EVERY DAY Medical FOR 30 Branch DAYS SERTraline 2021-0 Yes TAKE 1 Unive rs 25 mg 3-11 TABLET BY ity of tablet 00:00: [facility] EVERY DAY Medical FOR 30 Branch DAYS SERTraline 2021-0 Yes TAKE 1 Unive rs 25 mg 3-11 TABLET BY ity of tablet 00:00: [facility] EVERY DAY Medical FOR 30 Branch DAYS SERTraline 2021-0 Yes TAKE 1 Unive rs 25 mg 3-11 TABLET BY ity of tablet 00:00: [facility] EVERY DAY Medical FOR 30 Branch DAYS SERTraline 2021-0 Yes TAKE 1 Unive rs 25 mg 3-11 TABLET BY ity of tablet 00:00: [facility] EVERY DAY Medical FOR 30 Branch DAYS SERTraline 2021-0 Yes TAKE 1 Unive rs 25 mg 3-11 TABLET BY ity of tablet 00:00: [facility] EVERY DAY Medical FOR 30 Branch DAYS SERTraline 2-0 Yes TAKE 1 Unive rs 25 mg 3-11 TABLET BY ity of tablet 00:00: [facility] EVERY DAY Medical FOR 30 Branch DAYS Lisinopril Lisinopril 2021-0 No 1{table QD Lisinopril 40 MG 40 MG 3-11 t} 40 MG 00:00: 00 Lisinopril Lisinopril 2-0 No 1{table QD Lisinopril 40 MG 40 MG 3-11 t} 40 MG 00:00: 00 Lisinopril Lisinopril 2-0 No 1{table QD Lisinopril 40 MG 40 [...] t} 40 MG 00:00: 00 Sertraline Sertraline 2021-0 No 1{table QD Sertraline HCl 25 MG HCl 25 MG 3-11 t} HCl 25 MG 00:00: 00 Lisinopril Lisinopril 2021-0 No 1{table QD Lisinopril 40 MG 40 MG 3-11 t} 40 MG 00:00: 00 citalopram Yes TAKE 1 Unive rs 10 mg 2-28 TABLET BY ity of tablet 00:00: [facility] EVERY DAY Medical FOR 30 Branch DAYS citalopram Yes TAKE 1 Unive rs 10 mg 2-28 TABLET BY ity of tablet 00:00: [facility] EVERY DAY Medical FOR 30 Branch DAYS citalopram 0 Yes TAKE 1 Unive rs 10 mg 2-28 TABLET BY ity of tablet 00:00: EVERY DAY Medical FOR 30 Branch DAYS citalopram 0 Yes TAKE 1 Unive rs 10 mg 2-28 TABLET BY ity of tablet 00:00: [facility] EVERY DAY Medical FOR 30 Branch DAYS citalopram 0 Yes TAKE 1 Unive rs 10 mg 2-28 TABLET BY ity of tablet 00:00: [facility] EVERY DAY Medical FOR 30 Branch DAYS citalopram 0 Yes TAKE 1 Unive rs 10 mg 2-28 TABLET BY ity of tablet 00:00: [facility] EVERY DAY Medical FOR 30 Branch DAYS citalopram 0 Yes TAKE 1 Unive rs 10 mg 2-28 TABLET BY ity of tablet 00:00: [facility] EVERY DAY Medical FOR 30 Branch DAYS citalopram 0 Yes TAKE 1 Unive rs 10 mg 2-28 TABLET BY ity of tablet 00:00: [facility] EVERY DAY Medical FOR 30 Branch DAYS citalopram 0 Yes TAKE 1 Unive rs 10 mg 2-28 TABLET BY ity of tablet 00:00: [facility] EVERY DAY Medical FOR 30 Branch DAYS citalopram 2022-0 Yes TAKE 1 Unive rs 10 mg [...] 10 MG 00:00: de 10 MG 00 buPROPion buPROPion No 1{table QD buPROPion HCl [...] Lisinopril 40 MG 40 MG 40 MG Propranolol Propranolol No 5{ml} QD Propranolo [...] Observation Time Observation Value Comments Source height 2022-07-18 09:30:00 60 [in_i] [facility] weight 2022-07-18 09:30:00 184.8 [lb_av] [facility] temperature 2022-07-18 09:30:00 98.2 [degF] [facility] bmi 2022-07-18 09:30:00 36.09 kg/m2 [facility] oximetry 2022-07-18 09:30:00 99 % [facility] respiratory rate 2022-07-18 09:30:00 18 /min Comm on [facility] blood pressure 2022-07-18 09:30:00 126 mm[Hg] [facility] - systolic [facility] blood pressure 2022-07-18 09:30:00 61 mm[Hg] Common [facility] - diastolic [facility] height 2022-07-02 10:40:00 60 [in_i] Common [facility] weight 2022-07-02 10:40:00 189.8 [lb_av] [facility] - [facility] temperature 2022-07-02 10:40:00 97.6 [degF] Common S pirit [facility] bmi 2022-07-02 10:40:00 37.06 kg/m2 Common S pirit [facility] oximetry 2022-07-02 10:40:00 95 % Common S pirit [facility] respiratory rate 2022-07-02 10:40:00 17 /min Comm on [facility] blood pressure 2022-07-02 10:40:00 136 mm[Hg] [facility] - systolic [facility] blood pressure 2022-07-02 10:40:00 68 mm[Hg] [facility] - diastolic [facility] height 2022-06-14 14:00:00 60 [in_i] [facility] weight 2022-06-14 14:00:00 193.8 [lb_av] [facility] temperature 2022-06-14 14:00:00 97.4 [degF] Common S pirit [facility] bmi 2022-06-14 14:00:00 37.84 kg/m2 [facility] 2022-06-14 14:00:00 96 % [facility] respiratory rate 2022-06-14 14:00:00 18 /min Comm on [facility] blood pressure 2022-06-14 14:00:00 145 mm[Hg] [facility] - systolic [facility] blood pressure 2022-06-14 14:00:00 75 mm[Hg] [facility] - diastolic [facility] height 2022-05-24 15:45:00 60 [in_i] Common S pirit [facility] weight 2022-05-24 15:45:00 199.8 [lb_av] [facility] temperature 2022-05-24 15:45:00 97.5 [degF] Common S pirit [facility] bmi 2022-05-24 15:45:00 39.02 kg/m2 Common [facility] oximetry 2022-05-24 15:45:00 96 % Common [facility] respiratory rate 2022-05-24 15:45:00 17 /min Comm on [facility] blood pressure 2022-05-24 15:45:00 133 mm[Hg] Common [facility] - systolic [facility] blood pressure 2022-05-24 15:45:00 80 mm[Hg] Common [facility] - diastolic [facility] height 2022-05-17 13:20:00 60 [in_i] Common S [facility] weight 2022-05-17 13:20:00 200.8 [lb_av] [facility] temperature 2022-05-17 13:20:00 97.4 [degF] Common [facility] bmi 2022-05-17 13:20:00 39.21 kg/m2 [facility] oximetry 2022-05-17 13:20:00 98 % Common [facility] respiratory rate 2022-05-17 13:20:00 17 /min Comm on [facility] blood pressure 2022-05-17 13:20:00 137 mm[Hg] Common [facility] - systolic [facility] blood pressure 2022-05-17 13:20:00 67 mm[Hg] Common [facility] - diastolic [facility] height 2022-05-01 09:20:00 60 [in_i] Common S [facility] weight 2022-05-01 09:20:00 200.4 [lb_av] [facility] temperature 2022-05-01 09:20:00 97.8 [degF] Common [facility] bmi 2022-05-01 09:20:00 39.13 kg/m2 Common [facility] oximetry 2022-05-01 09:20:00 96 % Common S [facility] respiratory rate 2022-05-01 09:20:00 17 /min Comm on [facility] blood pressure 2022-05-01 09:20:00 120 mm[Hg] Common [facility] - systolic [facility] blood pressure 2022-05-01 09:20:00 64 mm[Hg] Common [facility] - diastolic [facility] height 2022-04-10 11:40:00 60 [in_i] Common S [facility] weight 2022-04-10 11:40:00 199.8 [lb_av] Common [facility] temperature 2022-04-10 11:40:00 97.2 [degF] Common [facility] bmi 2022-04-10 11:40:00 39.02 kg/m2 Common [facility] oximetry 2022-04-10 11:40:00 97 % [facility] respiratory rate 2022-04-10 11:40:00 17 /min Comm on [facility] blood pressure 2022-04-10 11:40:00 134 mm[Hg] Common [facility] - systolic [facility] blood pressure 2022-04-10 11:40:00 82 mm[Hg] Common [facility] - diastolic [facility] height 2022-02-14 11:20:00 60 [in_i] Common [facility] weight 2022-02-14 11:20:00 194.4 [lb_av] Common [facility] temperature 2022-02-14 11:20:00 98.6 [degF] Common S [facility] bmi 2022-02-14 11:20:00 37.96 kg/m2 Common S [facility] oximetry 2022-02-14 11:20:00 96 % Common [facility] respiratory rate 2022-02-14 11:20:00 16 /min Comm on [facility] blood pressure 2022-02-14 11:20:00 130 mm[Hg] Common [facility] - systolic [facility] blood pressure 2022-02-14 11:20:00 72 mm[Hg] Common [facility] - diastolic [facility] Systolic blood 2021-12-12 19:31:00 130 mm[Hg] [facility] Diastolic blood 2021-12-12 19:31:00 86 mm[Hg] [facility] Heart rate 2021-12-12 19:31:00 69 /min [facility] Body height 2021-12-12 19:31:00 [facility] 2021-12-12 19:31:00 85.458 [facility] BMI 2021-12-12 19:31:00 38.05 kg/m2 [facility] Oxygen saturation in 2021-12-12 19:31:00 97 /min [facility] Arterial blood by [facility] Pulse oximetry Branch height 2021-11-24 16:00:00 60 [in_i] [facility] weight 2021-11-24 16:00:00 184.4 [lb_av] Common [facility] temperature 2021-11-24 16:00:00 97.6 [degF] Common [facility] bmi 2021-11-24 16:00:00 36.01 kg/m2 [facility] oximetry 2021-11-24 16:00:00 98 % [facility] respiratory rate 2021-11-24 16:00:00 17 /min Comm on [facility] blood pressure 2021-11-24 16:00:00 132 mm[Hg] Common [facility] - systolic [facility] blood pressure 2021-11-24 16:00:00 74 mm[Hg] Common [facility] - diastolic [facility] height 2021-10-27 09:20:00 60 [in_i] Common [facility] weight 2021-10-27 09:20:00 178 [lb_av] Common [facility] bmi 2021-10-27 09:20:00 34.76 kg/m2 Common [facility] height 2021-09-29 09:20:00 60 [in_i] Common [facility] weight 2021-09-29 09:20:00 182.2 [lb_av] [facility] temperature 2021-09-29 09:20:00 97.9 [degF] Common [facility] bmi 2021-09-29 09:20:00 35.58 kg/m2 [facility] oximetry 2021-09-29 09:20:00 99 % [facility] respiratory rate 2021-09-29 09:20:00 16 /min Comm on [facility] blood pressure 2021-09-29 09:20:00 136 mm[Hg] [facility] systolic [facility] blood pressure 2021-09-29 09:20:00 74 mm[Hg] [facility] diastolic [facility] height 2021-09-04 11:20:00 60 [in_i] [facility] weight 2021-09-04 11:20:00 182.2 [lb_av] [facility] temperature 2021-09-04 11:20:00 97.9 [degF] [facility] bmi 2021-09-04 11:20:00 35.58 kg/m2 [facility] oximetry 2021-09-04 11:20:00 98 % [facility] respiratory rate 2021-09-04 11:20:00 16 /min Comm on [facility] height 2021-08-18 08:40:00 60 [in_i] [facility] weight 2021-08-18 08:40:00 184.0 [lb_av] [facility] temperature 2021-08-18 08:40:00 97.5 [degF] [facility] bmi 2021-08-18 08:40:00 35.93 kg/m2 Common [facility] oximetry 2021-08-18 08:40:00 95 % [facility] respiratory rate 2021-08-18 08:40:00 16 /min Comm on [facility] height 2021-08-07 15:00:00 60 [in_i] [facility] weight 2021-08-07 15:00:00 187.6 [lb_av] [facility] temperature 2021-08-07 15:00:00 97.4 [degF] [facility] bmi 2021-08-07 15:00:00 36.63 kg/m2 [facility] oximetry 2021-08-07 15:00:00 97 % [facility] respiratory rate 2021-08-07 15:00:00 18 /min Comm on [facility] blood pressure 2021-08-07 15:00:00 162 mm[Hg] Common [facility] systolic [facility] blood pressure 2021-08-07 15:00:00 84 mm[Hg] [facility] diastolic [facility] Procedures Procedure Date / Time Performed Performing Clinician Sour e CONSENT/REFUSAL FOR 2022-06-19 21:12:30 Doctor Unassigned, No [facility] DIAGNOSIS AND Name Medical Branch TREATMENT US HEAD NECK 2022-01-02 15:36:00 Ranjit [place] [facility] ASSIGNMENT OF BENEFITS 2022-01-02 14:48:17 Doctor Unassigned, No [facility] Encounters Start End Encounter Admission Attending Care Care Encounter Source Date/Time Date/Time Type Type Clinicians Facility Department ID 2022-07-18 Outpatient BEV Sterling [facility] [id number] Common 14:20:01 Michaela [id number] [facility] 2022-06-28 Outpatient BEV Sterling [facility] [id number] Common 08:15:01 Michaela 72839 [facility] 2022-06-12 Outpatient Sterling, STLMLC STLMLC [id number] Common 12:28:01 Michaela 65610 [facility] 2022-05-18 Outpatient Sterling, STLMLC STLMLC [id number] Common 09:20:04 Michaela [facility] 2022-04-30 Outpatient Sterling, STLMLC STLMLC [id number] Common 13:13:05 Michaela [facility] 2022-04-06 Outpatient Sterling, STLMLC STLMLC [id number] Common 14:41:02 Michaela [facility] 2022-03-07 Outpatient Sterling, STLMLC STLMLC [id number] Common 11:09:02 Michaela [facility] 2021-11-08 Outpatient Sterling, STLMLC STLMLC [id number] Common 13:20:01 Michaela [facility] 2021-10-25 Outpatient Sterling, STLMLC STLMLC [id number] Common 08:53:05 Michaela [facility] 2021-10-24 Outpatient Sterling, STLMLC STLMLC [id number] Common 09:59:07 Michaela [facility] 2021-09-27 Outpatient Sterling, STLMLC STLMLC [id number] Common 10:29:03 Michaela [facility] 2021-09-21 Outpatient Sterling, STLMLC STLMLC [id number] Common 14:37:02 Michaela [facility] 2021-08-07 Outpatient Sterling, STLMLC STLMLC [id number] Common 15:01:01 Michaela [facility] 2022-07-18 2022-07-18 OFFICE STLMLC STLMLC [id number] Co mmon 00:00:00 00:00:00 VISIT [facility] 3 [facility] 2022-07-02 2022-07-02 OFFICE STLMLC STLC [id number] Co mmon 00:00:00 00:00:00 VISIT Lacho BULLOCK PT - CHI LEVEL 4 [facility] 2022-07-02 2022-07-02 Patient Ramana [facility] 1.2.840.114 [id number] Univers 00:00:00 00:00:00 Secure Msg [employer] [id number] ity [facility] [id number] [place] as DIDIER?BLEA [phone] [facility] [address] MEDICAL OFFICE [facility] 2022-06-19 2022-06-19 [employer] Lab, Ang - Db [facility] 1.2.840.1 14 [id number] Univers 16:00:00 16:15:00 Visit Ramana [facility] [id number] ity of [place] [id number] [place] as DIDIER?BLEA [phone] [facility] OFFICE [facility] 2022-06-19 2022-06-19 [facility] [id number] Univers 16:00:00 16:00:00 [facility] 2022-06-19 2022-06-19 [facility] [id number] Univers 15:30:00 15:30:00 [facility] 2022-06-19 2022-06-19 Orders Doctor REMI 1.2.840.114 [id number] Univers 00:00:00 00:00:00 Only Unassigned, BARBARA [id number] ity of [place] [facility] [id number] [place] as [phone] [address] 2022-06-17 2022-06-17 [facility] 1.2.840.114 [id number] Univers 00:00:00 00:00:00 [employer] [id number] it y [facility] [id number] [place] as DIDIER?BLEA [phone] [facility] [address] MEDICAL OFFICE [facility] 2022-06-14 2022-06-14 OFFICE STLMLC STLC [id number] Co mmon 00:00:00 00:00:00 VISIT Spirit ESTAB PT - CHI LEVEL 5 [facility] 2022-05-24 2022-05-24 OFFICE STLMLC STLMLC [id number] Co mmon 00:00:00 00:00:00 VISIT NEW Spir it PT LEVEL 3 - CHI [facility] 2022-05-20 2022-05-20 Renard Coker NVBAILEE 1.2.840.114 [id number] Univers 00:00:00 00:00:00 [facility] [id number] it y of [place] [id number] [place] as DIDIER?BLEA [phone] [address] OFFICE BUILDING 2022-05-17 2022-05-17 OFFICE STLC STLC [id number] Co mmon 00:00:00 00:00:00 VISIT Spirit ESTAB PT - CHI LEVEL 4 [facility] 2022-05-12 2022-05-12 Emergency E BRITNEY, MHBL MHBL [id number] MHBL 14:29:00 20:07:00 JAIDEN 2022-05-01 2022-05-01 OFFICE STLMLC STLC [id number] Co mmon 00:00:00 00:00:00 VISIT EST Spir it PT LEVEL 3 - CHI [facility] 2022-04-10 2022-04-10 OFFICE STLMLC STLMLC [id number] Co mmon 00:00:00 00:00:00 VISIT EST Spir it PT LEVEL 3 - CHI [facility] 2022-04-03 2022-04-03 Renard Coker [facility] 1.2.840.114 [id number] Univers 00:00:00 00:00:00 [facility] [id number] it y of [place] [id number] [place] as DIDIER?BLEA [phone] [address] OFFICE BUILDING 2022-03-09 2022-03-09 OFFICE STLMLC STLMLC [id number] Co mmon 00:00:00 00:00:00 VISIT Spirit ESTAB PT - CHI LEVEL 4 [facility] 2022-02-22 2022-02-22 (TEL) STLMLC STLMLC [id number] Co mmon 00:00:00 00:00:00 Spirit [facility] 2022-02-18 2022-02-18 [facility] 1.2.840.114 [id number] Univers 00:00:00 00:00:00 [facility] HEALTH [id number] it y [facility] [id number] [place] as DIDIER?BLEA [phone] [address] OFFICE [facility] 2022-02-14 2022-02-14 [facility] [id number] Co mmon 00:00:00 00:00:00 VISIT EST Spir it PT LEVEL 3 - [facility] 2022-01-04 2022-01-04 Telephone [facility] [id number] Univers 00:00:00 00:00:00 [facility] WiFi Rail [id number] it y of [place] [id number] [place] as DIDIER?BLEA [phone] [address] 2022-01-02 2022-01-02 Outpatient [facility] [id number] Univers 09:49:54 23:59:00 [facility] 2022-01-02 2022-01-02 [facility] 1.2.840.114 [id number] Univers 09:49:54 23:59:00 [facility] [place] [id number] ity of [place] 4.2.7.2.[address] [facility] [phone] [facility] [address] 2022-01-02 2022-01-02 Orders Doctor REMI 1.2.840.114 [id number] Univers 00:00:00 00:00:00 Only Unassigned, BARBARA [id number] ity of [place] [facility] [id number] [place] as [phone] [facility] [address] 2021-12-12 2021-12-12 Outpatient [facility] [id number] Univers 15:00:00 15:56:53 WENTONG ity [facility] 2021-12-12 2021-12-12 [employer] Lab, Ang - Db [facility] 1.2.840.1 14 [id number] Univers 15:00:00 15:15:00 Visit Ramana [facility] [id number] ity of [place] [id number] [place] as DIDIER?BLEA [phone] [facility] OFFICE [facility] 2021-12-12 2021-12-12 Outpatient R RAMANA [facility] [id number] Univers 14:30:00 14:51:05 [place]ENTONG ity [facility] 2021-12-12 2021-12-12 Office [facility] 1.2.840.114 [id number] Univers 14:30:00 14:51:05 Visit [facility] 350..13.10 it y of [place] [id number] [place] as DIDIER?BLEA [phone] [facility] OFFICE [facility] 2021-11-24 2021-11-24 OFFICE STLMLC STLC [id number] Co mmon 00:00:00 00:00:00 VISIT Spirit ESTAB PT - CHI LEVEL 4 [facility] 2021-11-19 2021-11-19 [facility]ill [facility] 1.2.840.114 [id number] Univers 00:00:00 00:00:00 [facility] [id number] it y of [place] [id number] [place] as DIDIER?BLEA [phone] [address] OFFICE [facility] 2021-10-31 2021-10-31 (TEL) STLC STLC [id number] Co mmon 00:00:00 00:00:00 Spirit - CHI [facility] 2021-10-27 2021-10-27 OFFICE STLMLC STLMLC [id number] Co mmon 00:00:00 00:00:00 VISIT EST Spir it PT LEVEL 3 - CHI [facility] 2021-10-13 2021-10-13 Telephone [facility] [id number] Univers 00:00:00 00:00:00 [facility] MULTISPEC [id number] [id number] [phone] [facility] [place] [address] [facility] 2021-10-02 2021-10-02 [employer] Lab, Ang - Db [facility] 1.2.840.1 14 [id number] Univers 09:30:00 09:45:00 Visit Ramana [employer] [id number] ity [facility] [id number] [place] as DIDIER?BLEA [phone] [facility] [address] MEDICAL OFFICE BUILDING 2021-10-02 2021-10-02 Outpatient R RAMANA [facility] [id number] Univers 09:30:00 09:30:00 [facility] ity [facility] 2021-10-02 2021-10-02 Orders Doctor REMI 1.2.840.114 [id number] Univers 00:00:00 00:00:00 Only Unassigned, BARBARA [id number] ity of [place] [facility] [id number] [place] as [phone] [place] [address] Branch 2021-09-29 2021-09-29 OFFICE STLMLC STLMLC [id number] Co mmon 00:00:00 00:00:00 VISIT EST Spir it PT LEVEL 3 - CHI [facility] 2021-09-08 2021-09-08 Telephone [facility] [id number] Univers 00:00:00 00:00:00 [employer] [id number] it y of [place] [id number] [place] as DIDIER?BLEA [phone] [facility] [address] MEDICAL OFFICE BUILDING 2021-09-08 2021-09-08 Telephone [facility] [id number] Univers 00:00:00 00:00:00 [employer] [id number] it y of [place] [id number] [place] as DIDIER?BLEA [phone] [facility] [address] MEDICAL OFFICE BUILDING 2021-09-05 2021-09-05 Outpatient R RAMANA [facility] [id number] Univers 15:30:00 16:21:36 RANJIT ity of [facility] 2021-09-05 2021-09-05 Office Coker, [facility] 1.2.840.114 [id number] Univers 15:30:00 16:21:36 Visit [facility] 350.1.13.10 it y of [place] [id number] [place] as DIDIER?BLEA [phone] [address] MEDICAL OFFICE BUILDING 2021-09-04 2021-09-04 OFFICE STLMLC STLMLC [id number] Co mmon 00:00:00 00:00:00 VISIT Spirit ESTAB PT - CHI LEVEL 4 [facility] 2021-09-04 2021-09-04 Orders Doctor REMI 1.2.840.114 [id number] Univers 00:00:00 00:00:00 Only Unassigned, BARBARA [id number] ity of [place] [facility] [id number] Haroon as [phone] [address] 2021-08-25 2021-08-25 Orders Doctor REMI 1.2.840.114 [id number] Univers 00:00:00 00:00:00 Only Unassigned, BARBARA [id number] ity of [place] [facility] [id number] Har[place] as [phone] [address] 2021-08-24 2021-08-24 (TEL) STLMLC STLMLC [id number] Co mmon 00:00:00 00:00:00 Spirit - CHI [facility] 2021-08-18 2021-08-18 OFFICE STLMLC STLMLC [id number] Co mmon 00:00:00 00:00:00 VISIT Spirit ESTAB PT - CHI LEVEL 4 [facility] 2021-08-07 2021-08-07 OFFICE STLMLC STLMLC [id number] Co mmon 00:00:00 00:00:00 VISIT NITESH Laurent it PT LEVEL 4 - [facility] 2021-03-09 2021-03-09 Nurse Therapy, Adc Covid Infusion [facility] 1.2.840.114 [id number] Univers 14:57:54 15:57:54 Visit Juliano Chan [id number] ity [facility] [id number] [phone] Med [facility] 053 Branch 2021-03-09 2021-03-09 Outpatient [place] CHAN [facility] [id number] Univers 15:00:00 15:00:00 JULIANO ity of [facility] 2021-03-09 2021-03-09 Orders Doctor KHALIL 1.2.840.114 [id number] Univers 00:00:00 00:00:00 Only Unassigned, BARBARA [id number] ity of [place] [facility] [id number] [place] as [phone] [place] [address] Branch Results This patient has no known results.
[2022-07-19] MEDS ORDERED: MORPHINE 4 MG/ML SYR ONE (05:23)
[2022-07-19] MEDS ORDERED: ONDANSETRON 4 MG/2 ML VIAL ONE (05:23)
[2022-07-19 05:31] LABS: Urine Blood 3+ (Negative); Urine Glucose Negative (Negative); Urine Protein 3+ (Negative); Urine Specific Gravity 1.025 (1.005-1.030)
[2022-07-19 05:45] LABS: Absolute Lymphocytes (CBC) 1.8 K/uL (0.7-4.9); Hematocrit 34.2 % (36.0-45.0); Lymphocytes % 15.1 % (15.3-44.8); MCV 84.2 fL (80-100); MPV 8.2 fL (7.6-11.3); RBC Red Blood Cell Count 4.07 M/uL (3.86-4.86)
[2022-07-19] MEDS ORDERED: NA CHLORIDE 0.9% 1,000 ML ONE (05:52)
[2022-07-19] MEDS ORDERED: FAMOTIDINE 20 MG/2 ML VIAL IV ONE (05:52)
[2022-07-19 05:59] LABS: Albumin 2.9 g/dL (3.4-5.0); Bilirubin Total 0.4 mg/dL (0.2-1.0); Potassium 3.6 mmol/L (3.5-5.1); Protein, Total 7.6 g/dL (6.4-8.2)
--- NOTE | 2022-07-19 06:34 | EDPHYS ---
Physician Documentation [facility] Name: Debbi Pinon Age: 51 yrs Sex: Female : 1970 Arrival Date: 07/19/2022 Time: 04:59 Bed 13 Private MD: Juan Beyer HPI: 07/19 06:16 This 51 yrs old Female presents to ER via Ambulatory with complaints of silvia Abdominal Pain. 06:16 The patient presents with abdominal pain in the lower abdomen, in the left lower silvia quadrant, abdominal distention in the upper abdomen, in the lower abdomen. Onset: The symptoms/episode began/occurred 2 day(s) ago. The patient complains of pain in the left low back and left mid back. The pain does not radiate. Onset: The symptoms/episode began/occurred 2 day(s) ago. The symptoms radiate to left back. Modifying factors: The symptoms are alleviated by nothing, the symptoms are aggravated by movement. 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 - Social history:: Smoking status: Patient denies any tobacco usage or history of. - Family history:: not pertinent. ROS: 06:16 Constitutional: Negative for fever, chills, and weight loss, Eyes: Negative for injury, silvia pain, redness, and discharge, ENT: Negative for injury, pain, and discharge, Neck: Negative for injury, pain, and swelling, Cardiovascular: Negative for chest pain, palpitations, and edema, Respiratory: Negative for shortness of breath, cough, wheezing, and pleuritic chest pain, : Negative for injury, bleeding, discharge, and swelling, MS/Extremity: Negative for injury and deformity, Skin: Negative for injury, rash, and discoloration, Neuro: Negative for headache, weakness, numbness, tingling, and seizure, Psych: Negative for depression, anxiety, suicide ideation, homicidal ideation, and hallucinations, Allergy/Immunology: Negative for hives, rash, and allergies, Endocrine: Negative for neck swelling, polydipsia, polyuria, polyphagia, and marked weight changes, Hematologic/Lymphatic: Negative for swollen nodes, abnormal bleeding, and unusual bruising. 06:16 Back: Positive for decreased range of motion, flank pain, on the left. Exam: 06:16 Constitutional: This is a well developed, well nourished patient who is awake, alert, silvia and in no acute distress. Head/Face: Normocephalic, atraumatic. Eyes: Pupils equal round and reactive to light, extra-ocular motions intact. Lids and lashes normal. Conjunctiva and sclera are non-icteric and not injected. Cornea within normal limits. Periorbital areas with no swelling, redness, or edema. ENT: Nares patent. No nasal discharge, no septal abnormalities noted. Tympanic membranes are normal and external auditory canals are clear. Oropharynx with no redness, swelling, or masses, exudates, or evidence of obstruction, uvula midline. Mucous membranes moist. Neck: Trachea midline, no thyromegaly or masses palpated, and no cervical lymphadenopathy. Supple, full range of motion without nuchal rigidity, or vertebral point tenderness. No Meningismus. Chest/axilla: Normal chest wall appearance and motion. Nontender with no deformity. No lesions are appreciated. Cardiovascular: Regular rate and rhythm with a normal S1 and S2. No gallops, murmurs, or rubs. Normal PMI, no JVD. No pulse deficits. Respiratory: Lungs have equal breath sounds bilaterally, clear to auscultation and percussion. No rales, rhonchi or wheezes noted. No increased work of breathing, no retractions or nasal flaring. Abdomen/GI: Soft, non-tender, with normal bowel sounds. No distension or tympany. No guarding or rebound. No evidence of tenderness throughout. Skin: Warm, dry with normal turgor. Normal color with no rashes, no lesions, and no evidence of cellulitis. MS/ Extremity: Pulses equal, no cyanosis. Neurovascular intact. Full, normal range of motion. Neuro: Awake and alert, GCS 15, oriented to person, place, time, and situation. Cranial nerves II-XII grossly intact. Motor strength 5/5 in all extremities. Sensory grossly intact. Cerebellar exam normal. Normal gait. Psych: Awake, alert, with orientation to person, place and time. Behavior, mood, and affect are within normal limits. 06:16 Back: pain, that is mild, that is moderate, of the left low back and left mid back, ROM is normal, normal spinal alignment noted, CVA tenderness, that is mild, is noted on the left. 06:16 Skin: Appearance: Color: pale. Vital Signs: 05:02 BP 122 / 76; Pulse 92; Resp 18; Temp 97.8; Pulse Ox 97% on R/A; Weight 87.09 kg; Height tw5 5 ft. 0 in. (152.40 cm); Pain 8/10; 07:30 BP 125 / 60; Pulse 82; Resp 16; Pulse Ox 95% ; bp 05:02 Body Mass Index 37.50 (87.09 kg, 152.40 cm) tw5 MDM: 05:41 Patient medically screened. [facility] 06:29 Data reviewed: vital signs, nurses notes, lab test result(s). [facility] 07/19 05:08 Order name: CBC with Diff; Complete Time: 06:10 07/19 05:08 Order name: CMP; Complete Time: 06:10 07/19 05:08 Order name: Lipase; Complete Time: 06:10 [facility] 07/19 05:31 Order name: Urine Dipstick-Ancillary; Complete Time: 05:43 EDMS 07/19 05:44 Order name: CT Abd/Pelvis - IV Contrast Only [facility] 07/19 05:08 Order name: IV Saline Lock; Complete Time: 05:36 07/19 05:08 Order name: Labs collected and sent; Complete Time: 05:36 07/19 05:08 Order name: Urine Dipstick-Ancillary (obtain specimen); Complete Time: 05:36 [facility] 07/19 06:50 Order name: NPO; Complete Time: 06:51 ds4 Administered Medications: 05:36 Drug: Zofran (Ondansetron) 4 mg Route: IVP; Site: left antecubital; jb4 08:11 Follow up: Response: No adverse reaction bp 05:36 Drug: morphine 4 mg Route: IVP; Infused Over: 4 mins; Site: left antecubital; jb4 08:11 Follow up: Response: No adverse reaction bp 05:56 Drug: NS 0.9% 500 ml Route: IV; Rate: bolus; Site: left antecubital; jb4 06:52 Follow up: Response: No adverse reaction; IV Status: Completed infusion; IV Intake: jb4 500ml 05:56 Drug: Pepcid (famotidine) 20 mg Route: IVP; Site: left antecubital; jb4 08:10 Follow up: Response: No adverse reaction bp 06:44 Drug: Meropenem 1 grams Route: IV; Rate: per protocol; Site: left antecubital; jb4 08:10 Follow up: IV Status: Completed infusion bp 06:52 Drug: NS 0.9% 1000 ml Route: IV; Rate: 125 ml/hr; Site: left antecubital; jb4 08:10 Follow up: IV Status: Completed infusion; IV Intake: 1000ml bp 07:15 Drug: Valium (diazepam) 10 mg Route: PO; bp 08:10 Follow up: Response: No adverse reaction bp 07:50 Drug: Ativan (LORazepam) 1 mg Route: IVP; Site: left antecubital; bp 08:10 Follow up: Response: No adverse reaction bp Disposition Summary: 07/19/22 06:33 Hospitalization Ordered Hospitalization Status: Inpatient Admission silvia Provider: Doris Lucio cha Location: Telemetry/MedSurg (Inpatient) silvia Condition: Fair silvia Problem: new silvia Symptoms: have improved silvia Bed/Room Type: Standard silvia Room Assignment: silvia Diagnosis - Malignant neoplasm of body of stomach silvia - Hydronephrosis with ureteral stricture, not elsewhere classified - 3 cm mass UPJ silvia - Abdominal pain, unspecified silvia - Unspecified kidney failure - INSUFFICENCY silvia - Dehydration silvia - Elevated white blood cell count silvia Forms: - Medication Reconciliation Form sivlia - SBAR form silvia Signatures: Dispatcher [employer] EDJuan Alejandra MD MD cha Swanson, Donovan ds4 Modesto Krishnan RN RN jb4 Imtiaz Boles RN RN Suha Sorensen tw5
--- NOTE | 2022-07-19 06:34 | ER ---
Nurse's Notes [facility] Name: Debbi Pinon Age: 51 yrs Sex: Female : 1970 Arrival Date: 07/19/2022 Time: 04:59 Bed 13 Private MD: Diagnosis: Malignant neoplasm of body of stomach;Hydronephrosis with ureteral stricture, not elsewhere classified-3 cm mass UPJ;Abdominal pain, unspecified;Unspecified kidney failure-INSUFFICENCY;Dehydration;Elevated white blood cell count Presentation: 07/19 05:02 Chief complaint: Patient states: "I just got pain all my stomach. I was here the day tw5 before yesterday for the same thing. They did a cat scan and gave me pain medication. They just said that it looked enlarged.". Coronavirus screen: Vaccine status: Patient reports being unvaccinated. Ebola Screen: Patient negative for fever greater than or equal to 101.5 degrees Fahrenheit, and additional compatible Ebola Virus Disease symptoms Patient denies exposure to infectious person. Patient denies travel to an Ebola-affected area in the 21 days before illness onset. Initial Sepsis Screen: Does the patient meet any 2 criteria? HR > 90 bpm. Does the patient have a suspected source of infection? Yes: Acute abdominal pain. Risk Assessment: Do you want to hurt yourself or someone else? Patient reports no desire to harm self or others. Onset of symptoms is unknown. 05:02 Acuity: KELVIN 3 tw5 05:02 Method Of Arrival: Ambulatory tw5 Triage Assessment: 05:05 General: Appears uncomfortable, Behavior is calm, cooperative, appropriate for age. tw5 Pain: Complains of pain in abdomen Pain currently is 8 out of 10 on a pain scale. GI: Reports nausea, vomiting. 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 - Social history:: Smoking status: Patient denies any tobacco usage or history of. - Family history:: not pertinent. Screenin:[facility] ED Fall Risk Assessment (Adult) History of falling in the last 3 months, bp including since admission No falls in past 3 months (0 pts). Abuse screen: Denies threats or abuse. Denies injuries from another. Nutritional screening: No deficits noted. Tuberculosis screening: No symptoms or risk factors identified. Assessment: 07:00 General: REPORT FROM JODI CORONA. 51YO HF P/W ABD PAIN. bp 07:15 Reassessment: COORDINATOR AT B/S, ATTEMPTING TO ARRANGE TRANSPORT FOR PT PET SCAN FOR bp CANCER STAGING THIS AM. 08:00 Reassessment: PT DC BY HOSPITALIST TO ALLOW PET SCAN. bp Vital Signs: 05:02 BP 122 / 76; Pulse 92; Resp 18; Temp 97.8; Pulse Ox 97% on R/A; Weight 87.09 kg; Height tw5 5 ft. 0 in. (152.40 cm); Pain 8/10; 07:30 BP 125 / 60; Pulse 82; Resp 16; Pulse Ox 95% ; bp 05:02 Body Mass Index 37.50 (87.09 kg, 152.40 cm) tw5 ED Course: 04:59 Patient arrived in ED. jj6 05:05 Triage completed. tw5 05:05 Arm band placed on. tw5 05:41 Juan Mantilla MD is Attending Physician. [facility] 05:45 Modesto Krishnan, RN is Primary Nurse. jb4 06:22 CT Abd/Pelvis - IV Contrast Only In Process Unspecified. EDMS 06:30 Doris Lucio MD is Hospitalizing Provider. silvia 07:03 Primary Nurse role handed off by Modesto Krishnan, RN bp 07:03 Imtiaz Boles, CJ is Primary Nurse. bp 07:30 Patient has correct armband on for positive identification. Bed in low position. Call bp light in reach. Side rails up X2. Adult w/ patient. 08:13 No provider procedures requiring assistance completed. IV discontinued, intact, bp bleeding controlled, No redness/swelling at site. Pressure dressing applied. Administered Medications: 05:36 Drug: Zofran (Ondansetron) 4 mg Route: IVP; Site: left antecubital; jb4 08:11 Follow up: Response: No adverse reaction bp 05:36 Drug: morphine 4 mg Route: IVP; Infused Over: 4 mins; Site: left antecubital; jb4 08:11 Follow up: Response: No adverse reaction bp 05:56 Drug: NS 0.9% 500 ml Route: IV; Rate: bolus; Site: left antecubital; jb4 06:52 Follow up: Response: No adverse reaction; IV Status: Completed infusion; IV Intake: jb4 500ml 05:56 Drug: Pepcid (famotidine) 20 mg Route: IVP; Site: left antecubital; jb4 08:10 Follow up: Response: No adverse reaction bp 06:44 Drug: Meropenem 1 grams Route: IV; Rate: per protocol; Site: left antecubital; jb4 08:10 Follow up: IV Status: Completed infusion bp 06:52 Drug: NS 0.9% 1000 ml Route: IV; Rate: 125 ml/hr; Site: left antecubital; jb4 08:10 Follow up: IV Status: Completed infusion; IV Intake: 1000ml bp 07:15 Drug: Valium (diazepam) 10 mg Route: PO; bp 08:10 Follow up: Response: No adverse reaction bp 07:50 Drug: Ativan (LORazepam) 1 mg Route: IVP; Site: left antecubital; bp 08:10 Follow up: Response: No adverse reaction bp Intake: 06:52 IV: 500ml; Total: 500ml. jb4 08:10 IV: 1000ml; Total: 1500ml. bp Outcome: 06:33 Decision to Hospitalize by Provider. silvia 08:13 Admitted to ER Hold. Please see [facility] for further documentation. bp 08:13 Condition: stable 08:13 Instructed on the need for admit. 08:14 Patient left the ED. bp Signatures: Dispatcher [employer] EDMS Juan Mantilla MD MD cha Bryson, James, RN RN jb4 Imtiaz Boles RN RN Suha Sorensen tw5 Eva Mast jj6
[2022-07-19] MEDS ORDERED: Meropenem 1000 MG/VIAL IV ONE (06:39)
[2022-07-19] MEDS ORDERED: DIAZEPAM 5 MG TABLET ONE (07:20)
[2022-07-19] MEDS ORDERED: LORazepam 2 MG/ML VIAL ONE (07:21)
--- NOTE | 2022-07-19 07:41 | P.SSS ---
Patient History Date of Service: 07/19/22 Reason for admission: Abdominal pain History of Present Illness: Patient needs PET scan completed as soon as possible. Allergies No Known Allergies Allergy (Verified 07/11/22 10:24) Home Medications: Amlodipine [Norvasc*] 10 mg PO DAILY 05/29/22 Bupropion HCl [Wellbutrin Xl] 150 mg PO DAILY 05/29/22 Lisinopril [Zestril] 40 mg PO DAILY 05/29/22 Ondansetron [Ondansetron Odt] 8 mg PO DAILY PRN 05/29/22 Tramadol HCl [Ultram] 50 mg PO DAILY PRN 05/29/22 Hydrocodone 5/APAP 325 [[place] 5/325] 1 tab PO Q6H PRN #15 tab 06/05/22 Review of Systems 10-point ROS is otherwise unremarkable Physical Examination - Physical Exam General: Alert, In no apparent distress HEENT: Atraumatic, PERRLA, Mucous membr. moist/pink, EOMI, Sclerae nonicteric Neck: Supple, 2+ carotid pulse no bruit, No LAD, Without JVD or thyroid abnormality Respiratory: Clear to auscultation bilaterally, Normal air movement Cardiovascular: Regular rate/rhythm, Normal S1 S2 Gastrointestinal: Normal bowel sounds, No tenderness Musculoskeletal: No tenderness Integumentary: No rashes Neurological: Normal gait, Normal speech, Normal strength at 5/5 x4 extr, Normal tone, Normal affect Lymphatics: No axilla or inguinal lymphadenopathy - Studies Laboratory Data (last 24 hrs) 07/19/22 05:36: Sodium 137, Potassium 3.6, BUN 14, Creatinine 0.95, Glucose 127 H, Total Bilirubin 0.4, AST 24, ALT 20, Alkaline Phosphatase 107, Lipase 138 07/19/22 05:36: WBC 12.10 H, Hgb 11.3 L, Hct 34.2 L, Plt Count 453 H - Diagnosis (Problem(s)) (1) Hydronephrosis, left Current Visit: No Status: Acute (2) Ureteral mass Current Visit: No Status: Acute Treatment Summary: Patient is a 51-year-old female who is a admitted to the hospital for abdominal pain. 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 Patient has been seeing urology and oncology. She needs a PET scan done so we can stage her cancer. Her treatment will start on Saturday. Without the PET scan she does not really have a lot of treatment options. Because of the importance of getting the PET scan done I am going to go ahead and discharge her at this point. She will get the PET scan done shortly. If she has any issues getting the PET scan they will bring her back to the emergency room. I have talked to the family in detail about this. They know the importance of getting the PET scan performed. Patient is awake and alert at this time and she also is agreeable to try to get the PET scan done. She has claustrophobia and so organ to give her a dose of Ativan 0.25 IV push on top of her Valium 10 mg. She supposed to be there by 8:00 so hopefully we will get the PET scan done shortly. - Disposition Disposition: ROUTINE DISCHARGE Followup: NONE,NONE [Primary Care Provider] - Prvt MD As Needed Patient Discharge Instructions: -DC IV and DC home. -Follow-up with PCP in 1 to 2 weeks. -Follow-up with Oncology next week & Urology in 1 to 2 weeks. -Please call Dr. Lucio at [phone] if any questions regarding hospital stay. -Please call nursing station at [phone] if any nursing or medication questions. - Return to the emergency room if symptoms worsen Diet: Regular Activity: Fall precautions Time Spent Managing Pts Care (In Minutes): 35
[2022-07-19] MEDS ORDERED: LORazepam 2 MG/ML VIAL IV ONE (07:45)
[2022-07-19 08:26] VITALS: TEMP 97.8
[2022-07-19 08:39] VITALS: BP 125/60; O2SAT 95
--- NOTE | 2022-07-19 17:35 | RAD REPORT ---
EXAM DESCRIPTION: CT - Abdomen Pelvis W Contrast - 07/19/2022 7:09 am CLINICAL HISTORY: The patient is 51 years old and is Female; ABD PAIN TECHNIQUE: Axial computed tomography images of the abdomen and pelvis with intravenous contrast. S agittal and coronal reformatted images were created and reviewed. This CT exam was performed using one or more of the following dose reduction techniques: automated exposure control, adjustment of t he mA and/or kV according to patient size, and/or use of iterative reconstruction technique. COMPARISON: CT abdomen pelvis July 17, 2022. FINDINGS: Lung bases: Unremarkable. No mass. No consolidation. ABDOMEN: Liver: Unremarkable. No mass. Gallbladder and bile ducts: Unremarkable. No calcified stones. No ductal dilation. Pancreas: No findings to suggest acute pancreatitis. No mass visualized. No ductal dilation. Spleen: Unremarkable. No splenomegaly. Adrenals: Unremarkable. No mass. Kidneys and ureters: Marked left hydronephrosis again noted with double-J ureter stent. Slightly hyperdense mass again noted in the lumen of the renal pelvis/proximal ureter. Mid and distal ureter are nondistended. Right kidney is unremarkable. Stomach and bowel: No bowel dilatation or obstruction. No bowel wall thickening. PELVIS: Appendix: The visualized appendix is normal. No pericecal inflammation to suggest acute appendic itis. Bladder: Unremarkable. No mass. Reproductive: 1.2 cm left ovarian simple cyst, unchanged. Uterus and right ovary are unremarkable. ABDOMEN and PELVIS: Intraperitoneal space: Unremarkable. No free air. No significant fluid collection. Bones/joints: Degenerative changes in the lumbar spine. No acute fracture visualized. No dislocation. Soft tissues: Unremarkable. Vasculature: Unremarkable. No abdominal aortic aneurysm. Lymph nodes: Pathologic retroperitoneal adenopathy again visualized. IMPRESSION: 1. Marked left hydronephrosis again noted with double-J ureter stent. Slightly hyperde nse mass again noted in the lumen of the renal pelvis/proximal ureter. 2. Pathologic retroperitoneal adenopathy again visualized. 3. 1.2 cm left ovarian simple cyst, unchanged. No follow-up imaging recommended. Electronically signed by: Mel Azevedo MD 07/19/2022 6:37 AM BILL PEDDLER Due to temporary technical issues with the PACS/Fluency reporting system, reports are being signed by the in house radiologists without review as a courtesy to insure prompt reporting. The interpreting radiologist is fully responsible for the content of the report.
== END 2022-07-19 08:15 | disposition home or self-care (01) ==
LOC: ER 04:57
DX: C16.2 Malignant neoplasm of body of stomach (principal); N13.1 Hydronephrosis with ureteral stricture, not elsewhere classified; E86.0 Dehydration; N19 Unspecified kidney failure; D72.829 Elevated white blood cell count, unspecified; I10 Essential (primary) hypertension; F32.A Depression, unspecified
CPT/HCPCS: 96365; 96361; 85025; 36415; 81003; 83690; 80053; 74177; 96375; 99285; Q9967; J2185; J7030; J2405

== ENCOUNTER 2022-07-30 16:04 | Emergency (ER) | payer OTHER ==
--- OUTSIDE RECORDS SUMMARY | 2022-07-30 16:09 | XMS REPORT | Continuity of Care Document ---
:1970 Author Organization [facility] t Address [address] [place] [address] Care Team Providers Name Role Phone Michaela Sterling MD Primary Care Physician Michaela Sterling Attending Clinician Unavailable RANJIT COKER Attending Clinician Unavailable Ranjit Coker MD Attending Clinician Lab, Ang - Db Attending Clinician Unavailable Doctor Unassigned, [place] Attending Clinician Unavailable JAIDEN TAN Attending Clinician [...] Univers disease disease 3-29 ity of 00:00: [address] Goiter Goiter Disease Active Univers diffuse diffuse 3-29 ity of 00:00: [address] [id number] Hydronephr Problem Com mon osis, left [facility] [id number] Nausea Problem Common [facility] [id number] Mass of Problem Common ureter [facility] [id number] Left lower Problem Co mmon quadrant Spirit abdominal - [facility] pain [facility] [id number] Secondary Problem Com mon malignant Spirit neoplasm - [facility] of other 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 psychotic features without prior episode [id number] Other Problem Common obesity Spirit due to - [facility] excess [facility] [id number] EZEQUIEL Problem Common (generaliz Spirit ed anxiety - [facility] disorder) [facility] [id number] Essential Problem Comm on (primary) Spirit hypertensi - [facility] on [facility] [id number] Hypertrigl Problem Co mmon yceridemia [facility] - [facility] [id number] Hyperthyro Problem Com mon idism [facility] Allergies, Adverse Reactions, Alerts Allergy Allergy Status Severity Reaction(s) Onset Inactive Treating Comm ents Source Name Type Date Date Clinician NO KNOWN Drug Active Univers ALLERGIE Class ity of [facility] Social History Social Habit Start Date Stop Date Quantity Comments Source History of Tobacco [facility] Use [facility] Sex Assigned At Common Sp darwin - [facility] Exposure to 2022-06-09 2022-06-19 Not sure [facility] SARS-CoV-2 (event) 00:00:00 15:12:00 Medica l Branch Smoking Status Start Date Stop Date Source Tobacco smoking consumption [facility] Medical unknown Branch Never Smoker [facility] Medications Ordered Filled Start Stop Current Ordering Indication Dosage Frequency Signature Comments Components Source Medication Medication Date Date Medication? Clinician (SIG) Name Name diazePAM 10 diazePAM 10 No QD diazePAM MG MG 1-23 10 MG 00:00: 00 diazePAM 10 diazePAM 10 No QD diazePAM MG MG 1-23 10 MG 00:00: 00 methIMAzole 2021-06 Yes [id number] TAKE 1 Univers 10 mg 2-11 TABLET BY ity of tablet 00:00: MOUTH [place] 00 TWICE A Medical DAY Branch methIMAzole 2021-06 Yes [id number] TAKE 1 Univers 10 mg 2-11 TABLET BY ity of tablet 00:00: MOUTH [place] 00 TWICE A Medical DAY Branch methIMAzole 2021-06 Yes [id number] TAKE 1 Univers 10 mg 2-11 TABLET BY ity of tablet 00:00: MOUTH 00 TWICE A Medical DAY Branch methIMAzole 2021-06- No [id number] TAKE 1 Univers 10 mg 2-11 01-10 TABLET BY ity of tablet 00:00: 00:00 MOUTH [place] 00 :00 TWICE A Medical DAY Branch methIMAzole 2021-06- No [id number] TAKE 1 Univers 10 mg 2-11 01-10 TABLET BY ity of tablet 00:00: 00:00 MOUTH [place] 00 :00 TWICE A Medical DAY Branch methIMAzole 2021-06- No [id number] TAKE 1 Univers 10 mg 2-11 01-10 TABLET BY ity of tablet 00:00: 00:00 MOUTH [place] 00 :00 TWICE A Medical DAY Branch Ondansetron Ondansetron [...] traMADol HCl 50 MG HCl 50 MG 2-01 19-23 t_as_ne HCl 50 MG 00:00: 00:00 eded} 00 :00 traMADol traMADol 2021-06- No 1{table TID traMADol HCl 50 MG HCl 50 MG 2-01 19- t_as_ne HCl 50 MG 00:00: 00:00 eded} 00 :00 PROPRANOLOL 2021-06 Yes [id number] 20mg TAKE 1 Univers 20 mg 0-25 TABLET BY ity of tablet 00:00: MOUTH IN [address] MORNING [place] AND 1 TABLET IN THE EVENING. PROPRANOLOL 2021-06 Yes [id number] 20mg TAKE 1 Univers 20 mg 0-25 TABLET BY ity of tablet 00:00: MOUTH IN [address] MORNING [place] AND 1 TABLET IN THE EVENING. PROPRANOLOL 2021-06 Yes [id number] 20mg TAKE 1 Univers 20 mg 0-25 TABLET BY ity of tablet 00:00: MOUTH IN [address] MORNING [place] AND 1 TABLET IN THE EVENING. PROPRANOLOL 2021-06 Yes [id number] 20mg TAKE 1 Univers 20 mg 0-25 TABLET BY ity of tablet 00:00: MOUTH IN [address] MORNING [place] AND 1 TABLET IN THE EVENING. PROPRANOLOL 2021-06- No [id number] 20mg TAKE 1 Univers 20 mg 0-25 01-10 TABLET BY ity of tablet 00:00: 00:00 MOUTH IN [place] 00 :00 THE Medical MORNING Branch AND 1 TABLET IN THE EVENING. PROPRANOLOL 2021-06- No [id number] 20mg TAKE 1 Univers 20 mg 0-25 01-10 TABLET BY ity of tablet 00:00: 00:00 MOUTH IN [place] 00 :00 THE Medical MORNING Branch AND 1 TABLET IN THE EVENING. PROPRANOLOL 2021-06- No [id number] 20mg TAKE 1 Univers 20 mg 0-25 01-10 TABLET BY ity of tablet 00:00: 00:00 MOUTH IN [place] 00 :00 THE Medical MORNING Branch AND 1 TABLET IN THE EVENING. Sertraline Sertraline 0 No 1{table QD Sertraline HCl 25 MG HCl 25 MG 9-30 t} HCl 25 MG 00:00: 00 Sertraline Sertraline 2021-0 No 1{table QD Sertraline HCl 25 MG HCl 25 MG 9-30 t} HCl 25 MG 00:00: 00 METHIMAZOLE 2021-0 Yes [id number] TAKE 1 Univers 10 mg 9-11 TABLET BY ity of tablet 00:00: MOUTH [place] 00 TWICE A Medical DAY Branch METHIMAZOLE 2021-0 Yes [id number] TAKE 1 Univers 10 mg 9-11 TABLET BY ity of tablet 00:00: MOUTH [place] 00 TWICE A Medical DAY Branch METHIMAZOLE 2021-0 2021- No [id number] TAKE 1 Univers 10 mg 9-11 12-11 TABLET BY ity of tablet 00:00: 00:00 MOUTH [place] 00 :00 TWICE A Medical DAY Branch Cephalexin Cephalexin 2021-0 202- No 1{table BID Cephalexin 500 MG 500 MG 02-14 09-14 t} 500 MG 00:00: 00:00 00 :00 propranoloL 2021-0 Yes [id number] 20mg Take 1 Univers 20 mg 7-28 tablet by ity of tablet 00:00: mouth in [place] 00 the Medical morning Branch and 1 tablet in the evening. propranoloL 2021-0 Yes [id number] 20mg Take 1 Univers 20 mg 7-28 tablet by ity of tablet 00:00: mouth in [place] 00 the Medical morning Branch and 1 tablet in the evening. propranoloL 2021- No [id number] 20mg Take 1 Univers 20 mg 7-28 10-25 tablet by ity of tablet 00:00: 00:00 mouth in [place] 00 :00 the Medical morning Branch and 1 tablet in the evening. PROPRANOLOL 2022-0 Yes [id number] TAKE 1 Univers 20 mg 6-12 TABLET BY ity of tablet 00:00: MOUTH [place] 00 TWICE A Medical DAY Branch METHIMAZOLE 2022-0 Yes [id number] TAKE 1 Univers 10 mg 6-12 TABLET BY ity of tablet 00:00: MOUTH [place] 00 TWICE A Medical DAY Branch PROPRANOLOL 2022-0 Yes [id number] TAKE 1 Univers 20 mg 6-12 TABLET BY ity of tablet 00:00: MOUTH [place] 00 TWICE A Medical DAY Branch METHIMAZOLE 2022-0 Yes [id number] TAKE 1 Univers 10 mg 6-12 TABLET BY ity of tablet 00:00: MOUTH [place] 00 TWICE A Medical DAY Branch PROPRANOLOL 2022-0 Yes [id number] TAKE 1 Univers 20 mg 6-12 TABLET BY ity of tablet 00:00: MOUTH [place] 00 TWICE A Medical DAY Branch METHIMAZOLE 2022-0 Yes [id number] TAKE 1 Univers 10 mg 6-12 TABLET BY ity of tablet 00:00: MOUTH 00 TWICE A Medical DAY Branch PROPRANOLOL 2022-0 Yes [id number] TAKE 1 Univers 20 mg 6-12 TABLET BY ity of tablet 00:00: MOUTH [place] 00 TWICE A Medical DAY Branch METHIMAZOLE 2022-0 Yes [id number] TAKE 1 Univers 10 mg 6-12 TABLET BY ity of tablet 00:00: MOUTH [place] 00 TWICE A Medical DAY Branch METHIMAZOLE 2022-0 Yes [id number] TAKE 1 Univers 10 mg 6-12 TABLET BY ity of tablet 00:00: MOUTH [place] 00 TWICE A Medical DAY Branch METHIMAZOLE 2022-0 2022- No [id number] TAKE 1 Univers 10 mg 6-12 09-11 TABLET BY ity of tablet 00:00: 00:00 MOUTH [place] 00 :00 TWICE A Medical DAY Branch PROPRANOLOL 2022-0 2022- No [id number] TAKE 1 Univers 20 mg 6-12 07-28 [...] e_morni (XL) 300 00 ng} MG amLODIPine Yes Univers 10 mg 3-28 ity of tablet 00:00: [facility] buPROPion Yes Univers XL 150 mg 3-28 ity of 24 hr 00:00: [place] tablet Medical Branch lisinopriL Yes Univers 40 mg 3-28 ity of tablet 00:00: [place] [facility] amLODIPine Yes Univers 10 mg 3-28 ity of tablet 00:00: [address] buPROPion Yes Univers XL 150 mg 3-28 ity of 24 hr 00:00: [place] tablet [facility] Branch lisinopriL Yes Univers 40 mg 3-28 ity of tablet 00:00: [address] amLODIPine Yes Univers 10 mg 3-28 ity of tablet 00:00: [address] buPROPion Yes Univers XL 150 mg 3-28 ity of 24 hr 00:00: [place] tablet Medical Branch lisinopriL Yes Univers 40 mg 3-28 ity of tablet 00:00: [address] Branch amLODIPine Yes Univers 10 mg 3-28 ity of tablet 00:00: [place] [facility] buPROPion Yes Univers XL 150 mg 3-28 ity of 24 hr 00:00: [place] tablet Medical Branch lisinopriL Yes Univers 40 mg 3-28 ity of tablet 00:00: [address] amLODIPine 0 Yes Univers 10 mg 3-28 ity of tablet 00:00: [address] buPROPion Yes Univers XL 150 mg 3-28 ity of 24 hr 00:00: [place] tablet Medical Branch lisinopriL 0 Yes Univers 40 mg 3-28 ity of tablet 00:00: [place] [facility] Branch amLODIPine 0 Yes Univers 10 mg 3-28 ity of tablet 00:00: [address] buPROPion Yes Univers XL 150 mg 3-28 ity of 24 hr 00:00: [place] tablet Medical Branch lisinopriL 0 Yes Univers 40 mg 3-28 ity of tablet 00:00: [place] Medical [facility] amLODIPine 2021-0 Yes Univers 10 mg 3-28 ity of tablet 00:00: [place] [facility] buPROPion 0 Yes Univers XL 150 mg 3-28 ity of 24 hr 00:00: [place] tablet Medical Branch lisinopriL 0 Yes Univers 40 mg 3-28 ity of tablet 00:00: [place] Medical [facility] amLODIPine 2021-0 Yes Univers 10 mg 3-28 ity of tablet 00:00: [place] Medical [facility] buPROPion 0 Yes Univers XL 150 mg 3-28 ity of 24 hr 00:00: [place] tablet Medical Branch lisinopriL Yes Univers 40 mg 3-28 ity of tablet 00:00: [place] Medical [facility] amLODIPine 0 Yes Univers 10 mg 3-28 ity of tablet 00:00: [place] [address] Medical Branch buPROPion Yes Univers XL 150 mg 3-28 ity of 24 hr 00:00: [place] tablet Medical Branch lisinopriL Yes Univers 40 mg 3-28 ity of tablet 00:00: [place] [address] Medical Branch amLODIPine 0 Yes Univers 10 mg 3-28 ity of tablet 00:00: [place] Medical Branch buPROPion 0 Yes Univers XL 150 mg 3-28 ity of 24 hr 00:00: [place] tablet Medical Branch lisinopriL 2021-0 Yes Univers 40 mg 3-28 ity of tablet 00:00: [place] Medical Branch amLODIPine 2021-0 Yes Univers 10 mg 3-28 ity of tablet 00:00: [place] Medical Branch buPROPion 0 Yes Univers XL 150 mg 3-28 ity of 24 hr 00:00: [place] tablet Medical Branch lisinopriL 2021-0 Yes Univers 40 mg 3-28 ity of tablet 00:00: [place] Medical [facility] amLODIPine 0 Yes Univers 10 mg 3-28 ity of tablet 00:00: [place] [address] Medical Branch buPROPion 2021-0 Yes Univers XL 150 mg 3-28 ity of 24 hr 00:00: [place] tablet Medical Branch lisinopriL 2021-0 Yes Univers 40 mg 3-28 ity of tablet 00:00: [place] Medical Branch amLODIPine 2-0 Yes Univers 10 mg 3-28 ity of tablet 00:00: [place] Medical [facility] buPROPion 2021-0 Yes Univers XL 150 mg 3-28 ity of 24 hr 00:00: [place] tablet Medical Branch lisinopriL 2021-0 Yes Univers 40 mg 3-28 ity of tablet 00:00: [place] [facility] amLODIPine 2021-0 Yes Univers 10 mg 3-28 ity of tablet 00:00: [place] [facility] buPROPion 2021-0 Yes Univers XL 150 mg 3-28 ity of 24 hr 00:00: [place] tablet Medical Branch lisinopriL 2021-0 Yes Univers 40 mg 3-28 ity of tablet 00:00: [place] [facility] amLODIPine 2021-0 Yes Univers 10 mg 3-28 ity of tablet 00:00: [place] [facility] buPROPion 2021-0 Yes Univers XL 150 mg 3-28 ity of 24 hr 00:00: [place] tablet Medical Branch lisinopriL 2021-0 Yes Univers 40 mg 3-28 ity of tablet 00:00: [address] Branch amLODIPine amLODIPine 2021-0 No 1{table QD [...] MG MG 00:00: 10 MG 00 SERTraline 0 Yes TAKE 1 Unive [...] 3-11 TABLET BY ity of tablet 00:00: [facility] EVERY DAY Medical FOR 30 Branch DAYS SERTraline 2021-0 Yes TAKE 1 Unive rs 25 mg 3-11 TABLET BY ity of tablet 00:00: [facility] EVERY DAY Medical FOR 30 Branch [...] t} 40 MG 00:00: 00 Lisinopril Lisinopril 2021-0 No 1{table QD Lisinopril 40 MG 40 MG 3-11 t} 40 MG 00:00: 00 Lisinopril Lisinopril 2021-0 No 1{table QD Lisinopril 40 MG 40 MG 3-11 t} 40 MG 00:00: 00 Lisinopril Lisinopril 2021-0 No 1{table QD Lisinopril 40 MG 40 MG 3-11 t} 40 MG 00:00: 00 Lisinopril Lisinopril 2021-0 No [...] HCl 25 MG 00:00: 00 Lisinopril Lisinopril 2-0 No 1{table QD Lisinopril 40 MG 40 MG 3-11 t} 40 MG 00:00: 00 Sertraline Sertraline 2021-0 No 1{table QD Sertraline HCl 25 MG HCl 25 MG 3-11 t} HCl 25 MG 00:00: 00 Lisinopril Lisinopril 2021-0 No 1{table QD Lisinopril 40 MG 40 MG 3-11 t} 40 MG 00:00: 00 citalopram 2021-0 Yes TAKE 1 Unive rs 10 mg 2-28 TABLET BY ity of tablet 00:00: [facility] EVERY DAY Medical FOR 30 Branch DAYS citalopram 2021-0 Yes TAKE 1 Unive rs 10 mg 2-28 TABLET BY ity of tablet 00:00: [facility] EVERY DAY Medical FOR 30 Branch DAYS citalopram 2021-0 Yes TAKE 1 Unive rs 10 mg 2-28 TABLET BY ity of tablet 00:00: [facility] EVERY DAY Medical FOR 30 Branch DAYS citalopram 2021-0 Yes TAKE 1 Unive rs 10 mg 2-28 TABLET BY ity of tablet 00:00: [facility] EVERY DAY Medical FOR 30 Branch DAYS citalopram 2021-0 Yes TAKE 1 Unive rs 10 mg 2-28 TABLET BY ity of tablet 00:00: [facility] 00 EVERY DAY Medical FOR 30 Branch [...] Medical FOR 30 Branch DAYS Citalopram Citalopram 0 No 1{table QD Citalopram Hydrobromid Hydrobromid 2-28 [...] Comments Source height 2022-07-18 09:30:00 60 [in_i] Common [facility] weight 2022-07-18 09:30:00 184.8 [lb_av] [facility] temperature 2022-07-18 09:30:00 98.2 [degF] Common [facility] bmi 2022-07-18 09:30:00 36.09 kg/m2 [facility] oximetry 2022-07-18 09:30:00 99 % Common [facility] respiratory rate 2022-07-18 09:30:00 18 /min Comm on [facility] blood pressure 2022-07-18 09:30:00 126 mm[Hg] [facility] [place] [facility] blood pressure 2022-07-18 09:30:00 61 mm[Hg] Common [facility] diastolic [facility] height 2022-07-02 10:40:00 60 [in_i] Common [facility] weight 2022-07-02 10:40:00 189.8 [lb_av] [facility] temperature 2022-07-02 10:40:00 97.6 [degF] [facility] bmi 2022-07-02 10:40:00 37.06 kg/m2 [facility] oximetry 2022-07-02 10:40:00 95 % [facility] respiratory rate 2022-07-02 10:40:00 17 /min Comm on [facility] blood pressure 2022-07-02 10:40:00 136 mm[Hg] Common [facility] - systolic [facility] blood pressure 2022-07-02 10:40:00 68 mm[Hg] [facility] diastolic [facility] Systolic blood 2022-06-19 21:14:00 133 mm[Hg] Laura villeda of [facility] Diastolic blood 2022-06-19 21:14:00 85 mm[Hg] Unive rsity of pressure [facility] Heart rate 2022-06-19 21:14:00 79 /min Universi ty of [facility] Body height 2022-06-19 21:14:00 149.9 cm Universi ty [facility] Body weight 2022-06-19 21:14:00 87.68 kg Universi ty [facility] BMI 2022-06-19 21:14:00 39.04 [facility]2 [facility] 2022-06-19 21:14:00 98 /min [facility] Arterial blood by [facility] Pulse oximetry Branch height 2022-06-14 14:00:00 60 [in_i] Common [facility] weight 2022-06-14 14:00:00 193.8 [lb_av] [facility] temperature 2022-06-14 14:00:00 97.4 [degF] Common [facility] bmi 2022-06-14 14:00:00 37.84 kg/m2 [facility] oximetry 2022-06-14 14:00:00 96 % [facility] respiratory rate 2022-06-14 14:00:00 18 /min Comm on [facility] blood pressure 2022-06-14 14:00:00 145 mm[Hg] Common [facility] - systolic [facility] blood pressure 2022-06-14 14:00:00 75 mm[Hg] Common [facility] - diastolic [facility] height 2022-05-24 15:45:00 60 [in_i] Common [facility] weight 2022-05-24 15:45:00 199.8 [lb_av] [facility] temperature 2022-05-24 15:45:00 97.5 [degF] Common [facility] bmi 2022-05-24 15:45:00 39.02 kg/m2 [facility] oximetry 2022-05-24 15:45:00 96 % Common [facility] respiratory rate 2022-05-24 15:45:00 17 /min Comm on [facility] blood pressure 2022-05-24 15:45:00 133 mm[Hg] Common [facility] - systolic [facility] blood pressure 2022-05-24 15:45:00 80 mm[Hg] Common [facility] - diastolic [facility] height 2022-05-17 13:20:00 60 [in_i] [facility] weight 2022-05-17 13:20:00 200.8 [lb_av] [facility] temperature 2022-05-17 13:20:00 97.4 [degF] Common [facility] bmi 2022-05-17 13:20:00 39.21 kg/m2 [facility] oximetry 2022-05-17 13:20:00 98 % Common [facility] respiratory rate 2022-05-17 13:20:00 17 /min Comm on [facility] blood pressure 2022-05-17 13:20:00 137 mm[Hg] Common [facility] - systolic [facility] blood pressure 2022-05-17 13:20:00 67 mm[Hg] Common [facility] diastolic [facility] height 2022-05-01 09:20:00 60 [in_i] Common [facility] weight 2022-05-01 09:20:00 200.4 [lb_av] [facility] temperature 2022-05-01 09:20:00 97.8 [degF] Common [facility] bmi 2022-05-01 09:20:00 39.13 kg/m2 Common [facility] oximetry 2022-05-01 09:20:00 96 % [facility] respiratory rate 2022-05-01 09:20:00 17 /min Comm on [facility] blood pressure 2022-05-01 09:20:00 120 mm[Hg] Common [facility] - systolic [facility] blood pressure 2022-05-01 09:20:00 64 mm[Hg] Common [facility] - diastolic [facility] height 2022-04-10 11:40:00 60 [in_i] Common [facility] weight 2022-04-10 11:40:00 199.8 [lb_av] Common [facility] temperature 2022-04-10 11:40:00 97.2 [degF] Common [facility] bmi 2022-04-10 11:40:00 39.02 kg/m2 Common [facility] oximetry 2022-04-10 11:40:00 97 % [facility] respiratory rate 2022-04-10 11:40:00 17 /min Comm on [facility] blood pressure 2022-04-10 11:40:00 134 mm[Hg] Common [facility] - systolic [facility] blood pressure 2022-04-10 11:40:00 82 mm[Hg] Common [facility] - diastolic [facility] height 2022-02-14 11:20:00 60 [in_i] Common [facility] weight 2022-02-14 11:20:00 194.4 [lb_av] [facility] temperature 2022-02-14 11:20:00 98.6 [degF] [facility] bmi 2022-02-14 11:20:00 37.96 kg/m2 Common [facility] oximetry 2022-02-14 11:20:00 96 % Common [facility] respiratory rate 2022-02-14 11:20:00 16 /min Comm on [facility] blood pressure 2022-02-14 11:20:00 130 mm[Hg] Common [facility] - systolic [facility] blood pressure 2022-02-14 11:20:00 72 mm[Hg] Common [facility] - diastolic [facility] Systolic blood 2021-12-12 19:31:00 130 mm[Hg] Univer sity of pressure [facility] Diastolic blood 2021-12-12 19:31:00 86 mm[Hg] Unive rsity of pressure [facility] Heart rate 2021-12-12 19:31:00 69 /min Universi ty [facility] Body height 2021-12-12 19:31:00 149.9 cm Universi ty [facility] Body weight 2021-12-12 19:31:00 85.458 kg Universi ty [facility] BMI 2021-12-12 19:31:00 38.05 kg/m2 Universi [facility] Oxygen saturation in 2021-12-12 19:31:00 97 /min [facility] Arterial blood by [facility] Pulse oximetry Branch height 2021-11-24 16:00:00 60 [in_i] [facility] weight 2021-11-24 16:00:00 184.4 [lb_av] [facility] temperature 2021-11-24 16:00:00 97.6 [degF] Common [facility] bmi 2021-11-24 16:00:00 36.01 kg/m2 [facility] oximetry 2021-11-24 16:00:00 98 % [facility] respiratory rate 2021-11-24 16:00:00 17 /min Comm on [facility] blood pressure 2021-11-24 16:00:00 132 mm[Hg] Common [facility] - systolic [facility] blood pressure 2021-11-24 16:00:00 74 mm[Hg] Common [facility] - diastolic [facility] height 2021-10-27 09:20:00 60 [in_i] Common [facility] weight 2021-10-27 09:20:00 178 [lb_av] Common [facility] bmi 2021-10-27 09:20:00 34.76 kg/m2 [facility] height 2021-09-29 09:20:00 60 [in_i] Common [facility] weight 2021-09-29 09:20:00 182.2 [lb_av] [facility] temperature 2021-09-29 09:20:00 97.9 [degF] [facility] bmi 2021-09-29 09:20:00 35.58 kg/m2 [facility] oximetry 2021-09-29 09:20:00 99 % [facility] respiratory rate 2021-09-29 09:20:00 16 /min Comm on [facility] blood pressure 2021-09-29 09:20:00 136 mm[Hg] [facility] systolic [facility] blood pressure 2021-09-29 09:20:00 74 mm[Hg] [facility] diastolic [facility] height 2021-09-04 11:20:00 60 [in_i] [facility] weight 2021-09-04 11:20:00 182.2 [lb_av] [facility] temperature 2021-09-04 11:20:00 97.9 [degF] [facility] bmi 2021-09-04 11:20:00 35.58 kg/m2 [facility] oximetry 2021-09-04 11:20:00 98 % [facility] respiratory rate 2021-09-04 11:20:00 16 /min Comm on [facility] height 2021-08-18 08:40:00 60 [in_i] [facility] weight 2021-08-18 08:40:00 184.0 [lb_av] [facility] temperature 2021-08-18 08:40:00 97.5 [degF] [facility] bmi 2021-08-18 08:40:00 35.93 kg/m2 [facility] oximetry 2021-08-18 08:40:00 95 % [facility] respiratory rate 2021-08-18 08:40:00 16 /min Comm on [facility] height 2021-08-07 15:00:00 60 [in_i] [facility] weight 2021-08-07 15:00:00 187.6 [lb_av] Common [facility] temperature 2021-08-07 15:00:00 97.4 [degF] Common [facility] bmi 2021-08-07 15:00:00 36.63 kg/m2 [facility] oximetry 2021-08-07 15:00:00 97 % [facility] respiratory rate 2021-08-07 15:00:00 18 /min Comm on [facility] blood pressure 2021-08-07 15:00:00 162 mm[Hg] Common [facility] systolic [facility] blood pressure 2021-08-07 15:00:00 84 mm[Hg] [facility] [facility] [place] [facility] Procedures Procedure Date / Time Performed Performing Clinician [facility] e CONSENT/REFUSAL FOR 2022-06-19 21:12:30 Doctor Unassigned, No [facility] DIAGNOSIS AND Name Medical Branch TREATMENT US HEAD NECK 2022-01-02 15:36:00 Ramana [facility] ASSIGNMENT OF BENEFITS 2022-01-02 14:48:17 Doctor Unassigned, No [facility] Branch Encounters Start End Encounter Admission Attending Care Care Encounter Source Date/Time Date/Time Type Type Clinicians Facility Department ID 2022-07-[address] [facility] [id number] Common 14:20:01 Michaela 68099 [facility] 2022-06-28 Outpatient Asher [facility] [id number] Common 08:15:01 Michaela 19411 [facility] 2022-06-12 Outpatient BEV Sterling [facility] [id number] Common 12:28:01 Michaela 55656 [facility] 2022-05-18 Outpatient Sterling, STLMLC STLMLC [id number] Common 09:20:04 Michaela [facility] 2022-04-30 Outpatient Sterling, STLMLC STLMLC [id number] Common 13:13:05 Michaela [facility] 2022-04-06 Outpatient Sterling, STLMLC STLMLC [id number] Common 14:41:02 Michaela [facility] 2022-03-07 Outpatient Sterling, STLMLC STLMLC [id number] Common 11:09:02 Michaela [facility] 2021-11-08 Outpatient Sterling, STLMLC STLMLC [id number] Common 13:20:01 Michaela [facility] 2021-10-25 Outpatient Sterling, STLMLC STLMLC [id number] Common 08:53:05 Michaela [facility] 2021-10-24 Outpatient Sterling, STLMLC STLMLC [id number] Common 09:59:07 Michaela [facility] 2021-09-27 Outpatient Sterling, STLMLC STLMLC [id number] Common 10:29:03 Michaela [facility] 2021-09-21 Outpatient Sterling, STLMLC STLMLC [id number] Common 14:37:02 Michaela [facility] 2021-08-07 Outpatient Sterling, STLMLC STLMLC [id number] Common 15:01:01 Michaela [facility] 2022-07-18 2022-07-18 OFFICE STLMLC STLMLC [id number] Co mmon 00:00:00 00:00:00 VISIT [facility] PT - CHI LEVEL 3 [facility] 2022-07-02 2022-07-02 OFFICE STLMLC STLMLC [id number] Co mmon 00:00:00 00:00:00 VISIT [facility] PT - CHI LEVEL 4 [facility] 2022-07-02 2022-07-02 [facility] 1.2.840.114 [id number] Univers 00:00:00 00:00:00 Secure Msg Lisamonson [employer] [id number] ity of [place] 4.2.7.2.686 [place] as DIDIER?BLEA [phone] [facility] [address] MEDICAL OFFICE [facility] 2022-06-19 2022-06-19 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, Ang - Db [facility] 1.2.840.1 14 [id number] Univers 16:00:00 16:15:00 [facility] [id number] [facility] 4.2.7.2.686 [place] as DIDIER?BLEA [phone] [facility] [address] MEDICAL OFFICE [facility] 2022-06-19 2022-06-19 [facility] [id number] Univers 15:30:00 15:49:21 [facility] ity of [facility] 2022-06-19 2022-06-19 Office [facility] 1.2.840.114 [id number] Univers 15:30:00 15:49:21 Visit [facility] [id number] it y of [place] 4.2.7.2.686 [place] as DIDIER?BLEA [id number] [facility] [address] MEDICAL OFFICE [facility] 2022-06-19 2022-06-19 Outpatient [facility] [id number] Univers 15:30:00 15:30:00 [facility] ity of [facility] 2022-06-19 2022-06-19 Orders Doctor REMI 1.2.840.114 [id number] Univers 00:00:00 00:00:00 Only Unassigned, BARBARA [id number] ity of [facility] 4.2.7.2.686 Har[place] as [id number] [address] 2022-06-17 2022-06-17 Refill Ramana [facility] 1.2.840.114 [id number] Univers 00:00:00 00:00:00 [facility] [id number] it y of [place] 4.2.7.2.686 [place] as DIDIER?BLEA [phone] [address] OFFICE BUILDING 2022-06-14 2022-06-14 OFFICE STLC STLC [id number] Co mmon 00:00:00 00:00:00 VISIT [facility] PT - CHI LEVEL 5 [facility] 2022-05-24 2022-05-24 OFFICE STLC STLC [id number] Co mmon 00:00:00 00:00:00 VISIT NEW Spir it PT LEVEL 3 - CHI [facility] 2022-05-20 2022-05-20 Refzainab Coker, [facility] 1.2.840.114 [id number] Univers 00:00:00 00:00:00 [facility] [id number] it y of [place] 4.2.7.2.686 [place] as DIDIER?BLEA [phone] [address] OFFICE BUILDING 2022-05-17 2022-05-17 [facility]ICE [facility] [id number] Co mmon 00:00:00 00:00:00 VISIT [facility] PT - CHI LEVEL 4 [facility] 2022-05-12 2022-05-12 Emergency E BRITNEY, MHBL MHBL [id number] MHBL 14:29:00 20:07:00 JAIDEN 2022-05-01 2022-05-01 OFFICE STLC STLC [id number] Co mmon 00:00:00 00:00:00 VISIT EST Spir it PT LEVEL 3 - CHI [facility] 2022-04-10 2022-04-10 OFFICE STLC STLC [id number] Co mmon 00:00:00 00:00:00 VISIT EST Spir it PT LEVEL 3 - CHI [facility] 2022-04-03 2022-04-03 Refzainab Coker, NJBAILEE 1.2.840.114 [id number] Univers 00:00:00 00:00:00 [facility] [id number] it y of [place] 4.2.7.2.686 [place] as DIDIER?BLEA [id number] [address] OFFICE BUILDING 2022-03-09 2022-03-09 OFFICE STLC STLC [id number] Co mmon 00:00:00 00:00:00 VISIT [facility] PT - CHI LEVEL 4 [facility] 2022-02-22 2022-02-22 (TEL) STLMLC STLMLC [id number] Co mmon 00:00:00 00:00:00 [facility] - [facility] 2022-02-18 2022-02-18 Refill [facility] 1.2.840.114 [id number] Univers 00:00:00 00:00:00 [facility] [id number] it [facility] 4.2.7.2.686 [place] as DIDIER?BLEA [phone] [address] MEDICAL OFFICE BUILDING 2022-02-14 2022-02-14 OFFICE STLMLC STLMLC [id number] Co mmon 00:00:00 00:00:00 VISIT EST Spir it PT LEVEL 3 - CHI [facility] 2022-01-04 2022-01-04 Telephone [facility] [id number] Univers 00:00:00 00:00:00 [facility] [id number] it y of [place] 4.2.7.2.686 [place] as DIDIER?BLEA [phone] [address] MEDICAL OFFICE BUILDING 2022-01-02 2022-01-02 Outpatient [facility] [id number] Univers 09:49:54 23:59:00 WENTONG ity of [facility] 2022-01-02 2022-01-02 [facility] 1.2.840.114 [id number] Univers 09:49:54 23:59:00 Encounter Wentong ANGLEKARINA [id number] ity of [place].2.[place] [id number] [facility] [address] 2022-01-02 2022-01-02 Orders Doctor REMI 1.2.840.114 [id number] Univers 00:00:00 00:00:00 Only Unassigned, BARBARA 350.1.13.10 ity of [facility] 4.2.7.2.686 [place] as [id number] [facility] [address] 2021-12-12 2021-12-12 Outpatient R RAMANA [facility] [id number] Univers 15:00:00 15:56:53 [facility] 2021-12-12 2021-12-12 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, Ang - Db [facility] 1.2.840.1 14 [id number] Univers 15:00:00 15:15:00 Visit Ramana [place] [id number] ity of [place] 4.2.7.2.686 [place] as DIDIER?BLEA [phone] [place] l[facility] [address] MEDICAL OFFICE BUILDING 2021-12-12 2021-12-12 Outpatient [facility] [id number] Univers 14:30:00 14:51:05 [facility] 2021-12-12 2021-12-12 Office [facility] 1.2.840.114 [id number] Univers 14:30:00 14:51:05 Visit [facility] 350.1.13.10 it y of [place] 4.2.7.2.686 [place] as DIDIER?BLEA [phone] [facility] [address] MEDICAL OFFICE BUILDING 2021-11-24 2021-11-24 OFFICE STLMLC STLMLC [id number] Co mmon 00:00:00 00:00:00 VISIT Spirit ESTAB PT - CHI LEVEL 4 [facility] 2021-11-19 2021-11-19 Refill [facility] 1.2.840.114 [id number] Univers 00:00:00 00:00:00 [facility] 350.1.13.10 it y of [place] 4.2.7.2.686 [place] as DIDIER?BLEA [id number] [facility] [address] MEDICAL OFFICE BUILDING 2021-10-31 2021-10-31 (TEL) STLMLC STLMLC [id number] Co mmon 00:00:00 00:00:00 [facility] - [facility] 2021-10-27 2021-10-27 OFFICE STLMLC STLMLC [id number] Co mmon 00:00:00 00:00:00 VISIT EST Spir it PT LEVEL 3 - CHI [facility] 2021-10-132021-10-13 Telephone [facility] [id number] Univers 00:00:00 00:00:00 Lisaong MULTISPEC 350.1.13.10 [place]2.[place] C[place] [id number] [facility] [place] [address] [facility] 2021-10-02 2021-10-02 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, Ang - Db [facility] 1.2.840.1 14 [id number] Univers 09:30:00 09:45:00 Visit Ramana [facility] 350.1.13.10 ity of [place] 4.2.7.2.686 [place] as DIDIER?BLEA [phone] [address] MEDICAL OFFICE BUILDING 2021-10-02 2021-10-02 Outpatient R RAMANA [facility] [id number] Univers 09:30:00 09:30:00 [facility] ity [facility] 2021-10-02 2021-10-02 Orders Doctor REMI 1..840.114 [id number] Univers 00:00:00 00:00:00 Only Unassigned, BARBARA 350.1.13.10 ity of [facility] 4.2.7.2.686 [place] as [phone] [facility] [address] 2021-09-29 2021-09-29 OFFICE [facility] [id number] Co mmon 00:00:00 00:00:00 VISIT EST Spir it PT LEVEL 3 - CHI [facility] 2021-09-08 2021-09-08 Telephone [facility] 1.2.952.910 [id number] Univers 00:00:00 00:00:00 [facility] 350.1.13.10 it y of [place] 4.2.7.2.686 [place] as DIDIER?BLEA [phone] [facility] [address] MEDICAL OFFICE BUILDING 2021-09-08 2021-09-08 Telephone Ramana [facility] [id number] Univers 00:00:00 00:00:00 Wentong HEALTH 350.1.13.10 it y of [place] 4.2.7.2.686 [place] as DIDIER?BLEA [phone] [address] MEDICAL OFFICE BUILDING 2021-09-05 2021-09-05 Outpatient R RAMANA [facility] [id number] Univers 15:30:00 16:21:36 RANJIT ity [facility] 2021-09-05 2021-09-05 Office Ramana [facility] 1.2.840.114 [id number] Univers 15:30:00 16:21:36 Visit [facility] 350.1.13.10 it y of [place] 4.2.7.2.686 [place] as DIDIER?BLEA [phone] [address] OFFICE [facility] 2021-09-04 2021-09-04 OFFICE STLMLC STLMLC [id number] Co mmon 00:00:00 00:00:00 VISIT Lacho ESTAB PT - CHI LEVEL 4 [facility] 2021-09-04 2021-09-04 Orders Doctor REMI 1.2.840.114 [id number] Univers 00:00:00 00:00:00 Only Unassigned, BABRARA 350.1.13.10 ity of [place] [facility] 4.2.7.2.686 Har[place] as [phone] [address] 2021-08-25 2021-08-25 Orders Doctor REMI 1.2.840.114 [id number] Univers 00:00:00 00:00:00 Only Unassigned, BARBARA 350.1.13.10 ity of [place] [facility] 4.2.7.2.686 [place] as [phone] [address] 2021-08-24 2021-08-24 (TEL) STLMLC STLMLC [id number] Co mmon 00:00:00 00:00:00 [facility] - CHI [facility] 2021-08-18 2021-08-18 OFFICE STLMLC STLMLC [id number] Co mmon 00:00:00 00:00:00 VISIT [facility] ESTAB PT - CHI LEVEL 4 [facility] 2021-08-07 2021-08-07 OFFICE STLMLC STLMLC [id number] Co mmon 00:00:00 00:00:00 VISIT NITESH Laurent it PT LEVEL 4 - [facility] 2021-03-09 2021-03-09 Nurse Therapy, Adc Covid Infusion [facility] 1.2.840.114 [id number] Univers 14:57:54 15:57:54 Visit Juliano Chan 350.1.13.10 ity [facility] [place]2.7.2.[place] [id number] [place] [address] Branch 2021-03-09 2021-03-09 Outpatient R RODY [facility] [id number] Univers 15:00:00 15:00:00 JULIANO nieto [facility] 2021-03-09 2021-03-09 Orders Doctor REMI 1.2.840.114 [id number] Univers 00:00:00 00:00:00 Only Unassigned, BARBARA 350.1.13.10 ity of [facility] 4.2.7.2.686 [place] as [id number] [place] [address] Branch Results This patient has no known results.
[2022-07-30] MEDS ORDERED: POTASSIUM 25 MEQ EFFERV TAB ONE (18:07)
[2022-07-30] MEDS ORDERED: KCL 20 MEQ/100 mL IVPB 200 ML IV ONE (18:07)
[2022-07-30] MEDS ORDERED: NA CHLORIDE 0.9% 500 ML ONE (18:07)
[2022-07-30 21:57] LABS: Potassium 5.7 mmol/L (3.5-5.1)
[2022-07-30] MEDS ORDERED: NA CHLORIDE 0.9% 100 ML ONE (22:14)
[2022-07-30] MEDS ORDERED: INSULIN -REGULAR HUMAN 50 UNIT/0.5 ML ML ONE (22:14)
[2022-07-30] MEDS ORDERED: CALCIUM GLUCONATE 1 GM IVPB 1 GM/50 ML BAG IV ONE (22:14)
[2022-07-30] MEDS ORDERED: SOD POLYSTYREN SUL 15 GM/60 ML UCUP ONE (22:14)
--- NOTE | 2022-07-30 22:43 | ER ---
Nurse's Notes [facility] Name: Debbi Pinon Age: 51 yrs Sex: Female : 1970 Arrival Date: 07/30/2022 Time: 16:07 Bed 14 Private MD: Michaela Sterling Diagnosis: Hypokalemia Presentation: 07/30 16:46 Chief complaint: Patient states: Dr. Berry called and sent to ER for low potassium. jl7 Coronavirus screen: Vaccine status: Patient reports being unvaccinated. At this time, the client does not indicate any symptoms associated with coronavirus-19. Ebola Screen: No symptoms or risks identified at this time. Initial Sepsis Screen: Does the patient meet any 2 criteria? No. Patient's initial sepsis screen is negative. Does the patient have a suspected source of infection? No. Patient's initial sepsis screen is negative. Risk Assessment: Do you want to hurt yourself or someone else? Patient reports no desire to harm self or others. Onset of symptoms is unknown. 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 - Social history:: Smoking status: Patient denies any tobacco usage or history of. Screenin:[address] [facility] ED Fall Risk Assessment (Adult) History of falling in the last 3 months, mb9 including since admission No falls in past 3 months (0 pts) Confusion or Disorientation No (0 pts) Intoxicated or Sedated No (0 pts) Impaired Gait No (0 pts) Mobility Assist Device Used No (0 pt) Altered Elimination No (0 pt) Score/Fall Risk Level 0 - 2 = Low Risk Oriented to surroundings, Maintained a safe environment, Educated pt \T\ family on fall prevention, incl call for assistance when getting out of bed. Abuse screen: Denies threats or abuse. Nutritional screening: No deficits noted. Tuberculosis screening: No symptoms or risk factors identified. Assessment: 16:50 Reassessment: JASON Burks in triage assessing pt. jl7 17:28 Reassessment: pt brought back to ER room. mb9 17:45 General: Appears uncomfortable, Behavior is calm, cooperative, appropriate for age. mb9 Pain: Complains of pain in Left lower back Pain currently is 6 out of 10 on a pain scale. Quality of pain is described as aching. Neuro: Level of Consciousness is awake, alert, obeys commands, Oriented to person, place, time, situation, Appropriate for age. Cardiovascular: Heart tones S1 S2 present Capillary refill < 3 seconds is brisk Patient's skin is warm and dry. Rhythm is regular. Respiratory: Airway is patent Respiratory effort is even, unlabored, Respiratory pattern is regular, symmetrical. GI: Abdomen is round non-distended, Bowel sounds present X 4 quads. Abd is soft and non tender X 4 quads. : No signs and/or symptoms were reported regarding the genitourinary system. Derm: Skin is pink, warm \T\ dry. Musculoskeletal: Range of motion: intact in all extremities. 18:54 Reassessment: No changes from previously documented assessment. Patient and/or family mb9 updated on plan of care and expected duration. Pain level reassessed. Patient is alert, oriented x 3, equal unlabored respirations, skin warm/dry/pink. 20:02 Reassessment: Patient appears in no apparent distress at this time. Patient denies pain aa9 at this time. pt ambulated to restroom independently. 23:01 Reassessment: Patient appears in no apparent distress at this time. Patient and/or aa9 family updated on plan of care and expected duration. Pain level reassessed. Patient is alert, oriented x 3, equal unlabored respirations, skin warm/dry/pink. Patient denies pain at this time. Vital Signs: 16:46 BP 141 / 75; Pulse 82; Resp 17; Temp 97.2; Pulse Ox 99% on R/A; Weight 80.74 kg; Height jl7 5 ft. 0 in. (152.40 cm); Pain 0/10; 18:15 BP 149 / 86; Pulse 84; Resp 18; Pulse Ox 100% on R/A; mb9 18:54 BP 161 / 87; Pulse 88; Resp 16; Pulse Ox 99% on R/A; mb9 19:45 BP 120 / 66; Pulse 66; Resp 13 S; Pulse Ox 99% on R/A; aa9 16:46 Body Mass Index 34.76 (80.74 kg, 152.40 cm) jl7 ED Course: 16:07 Patient arrived in ED. mr 16:08 Asher Michaela is Private Physician. mr 16:39 Kimmie Tapia [facility]-C [facility] snw 16:39 Juan Mantilla MD is Attending Physician. snw 16:48 Triage completed. jl7 16:48 Arm band placed on right wrist. jl7 17:27 Dian Neely, CJ is Primary Nurse. mb9 17:35 Bed in low position. Call light in reach. Side rails up X 1. Client placed on mb9 continuous cardiac and pulse oximetry monitoring. NIBP monitoring applied. monitor technician on. 17:39 Inserted saline lock: 20 gauge in left antecubital area, using aseptic technique. bc6 18:22 EKG done, by ED staff, reviewed by Kimmie DUBON. mb9 18:54 No provider procedures requiring assistance completed. mb9 20:03 Warm blanket given. aa9 21:57 Notified ED physician of a critical lab result(s). K: 5.7. aa9 23:01 IV discontinued, intact, bleeding controlled, No redness/swelling at site. Pressure aa9 dressing applied. Administered Medications: 18:14 Drug: NS 0.9% 500 ml Route: IV; Rate: 50 ml/hr; Site: left antecubital; mb9 18:14 Drug: Potassium Effervescent Tablet 50 mEq Route: PO; mb9 18:14 Drug: Potassium Chloride 20 mEq Route: IV; Rate: calculated rate; Site: left mb9 antecubital; 20:14 Follow up: Response: No adverse reaction; IV Status: Completed infusion; IV Intake: aa9 100ml 20:24 Drug: Potassium Chloride 20 mEq Route: IV; Rate: calculated rate; Site: left aa9 antecubital; 22:27 Drug: Insulin Regular Human 5 units {Co-Signature: ll3 (Margy Leigh RN).} Route: aa9 Sub-Q; Site: right lower abdomen; 22:27 Drug: Kayexalate (polystyrene) 15 grams Route: PO; aa9 22:30 Not Given (Physician Discretion): Calcium Gluconate 1 grams IVPB once over 60 mins; aa9 (mix in NS 100 mL) Medication: 18:54 VIS not applicable for this client. mb9 Intake: 20:14 IV: 100ml; Total: 100ml. aa9 Outcome: 22:43 Discharge ordered by . jenna 23:00 Discharged to home ambulatory, with family. aa9 23:00 Condition: stable 23:00 Discharge instructions given to patient, family, Instructed on discharge instructions, follow up and referral plans. Demonstrated understanding of instructions, follow-up care. 23:01 Patient left the ED. aa9 Signatures: Kimmie Tapia, ANIMATION PRODUCER-C ANIMATION PRODUCER-Csnw Vasquez Dian loera Ricky Cruz RN RN jl7 Corry Harp, RN RN lora9 Dian Neely, RN RN mb9 Daina Gray bc6 Margy Leigh RN ll3 Corrections: (The following items were deleted from the chart) 16:50 16:48 PMHx: Stage 4 cancer in stomach; so jl7 16:50 16:48 PSHx: port placed; so jl7 20:03 20:02 Reassessment: Patient appears in no apparent distress at this time. Patient aa9 denies pain at this time. aa9
--- NOTE | 2022-07-30 22:43 | EDPHYS ---
Physician Documentation [facility] Name: Debbi Pinon Age: 51 yrs Sex: Female : 1970 Arrival Date: 07/30/2022 Time: 16:07 Bed 14 Private MD: Michaela Sterling ED Physician Juan Mantilla HPI: 07/30 18:34 This 51 yrs old Female presents to ER via Ambulatory with complaints of snw Abnormal Lab Results. 18:34 Pt had chemo today and Dr. Berry directed her to the ED for outpatient lab result of snw potassium of 2.6. Onset: The symptoms/episode began/occurred acutely. Severity of symptoms: At their worst the symptoms were very mild. It is unknown whether or not the patient has had similar symptoms in the past. as noted. 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 - Social history:: Smoking status: Patient denies any tobacco usage or history of. ROS: 18:36 Constitutional: Negative for fever, chills, and weight loss, Eyes: Negative for injury, snw pain, redness, and discharge, ENT: Negative for injury, pain, and discharge, Neck: Negative for injury, pain, and swelling, Cardiovascular: Negative for chest pain, palpitations, and edema, Respiratory: Negative for shortness of breath, cough, wheezing, and pleuritic chest pain, Abdomen/GI: Negative for abdominal pain, nausea, vomiting, diarrhea, and constipation, being treated per Dr. Berry for uterine cancer Back: Negative for injury and pain, : Negative for injury, bleeding, discharge, and swelling, MS/Extremity: Negative for injury and deformity, Skin: Negative for injury, rash, and discoloration, Neuro: Negative for headache, weakness, numbness, tingling, and seizure, Psych: Negative for depression, anxiety, suicide ideation, homicidal ideation, and hallucinations. Exam: 18:05 Head/Face: Normocephalic, atraumatic. Eyes: Pupils equal round and reactive to light, snw extra-ocular motions intact. Lids and lashes normal. Conjunctiva and sclera are non-icteric and not injected. Cornea within normal limits. Periorbital areas with no swelling, redness, or edema. ENT: Nares patent. No nasal discharge, no septal abnormalities noted. Tympanic membranes are normal and external auditory canals are clear. Oropharynx with no redness, swelling, or masses, exudates, or evidence of obstruction, uvula midline. Mucous membranes moist. Neck: Trachea midline, no thyromegaly or masses palpated, and no cervical lymphadenopathy. Supple, full range of motion without nuchal rigidity, or vertebral point tenderness. No Meningismus. Chest/axilla: Normal chest wall appearance and motion. Nontender with no deformity. No lesions are appreciated. Cardiovascular: Regular rate and rhythm with a normal S1 and S2. No gallops, murmurs, or rubs. Normal PMI, no JVD. No pulse deficits. Respiratory: Lungs have equal breath sounds bilaterally, clear to auscultation and percussion. No rales, rhonchi or wheezes noted. No increased work of breathing, no retractions or nasal flaring. Back: No spinal tenderness. No costovertebral tenderness. Full range of motion. Skin: Warm, dry with normal turgor. Normal color with no rashes, no lesions, and no evidence of cellulitis. Pt with new port to right chest wall, sutures, bandage, and ecchymosis still in place MS/ Extremity: Pulses equal, no cyanosis. Neurovascular intact. Full, normal range of motion. Neuro: Awake and alert, GCS 15, oriented to person, place, time, and situation. Cranial nerves II-XII grossly intact. Motor strength 5/5 in all extremities. Sensory grossly intact. Cerebellar exam normal. Normal gait. Psych: Awake, alert, with orientation to person, place and time. Behavior, mood, and affect are within normal limits. 18:05 Constitutional: The patient appears alert, awake, denies symptoms, had chemo this am and was called to come to ED for low potassium. 18:05 Abdomen/GI: Inspection: distension, that is mild, in the right lower quadrant and left lower quadrant. Vital Signs: 16:46 BP 141 / 75; Pulse 82; Resp 17; Temp 97.2; Pulse Ox 99% on R/A; Weight 80.74 kg; Height jl7 5 ft. 0 in. (152.40 cm); Pain 0/10; 18:15 BP 149 / 86; Pulse 84; Resp 18; Pulse Ox 100% on R/A; mb9 18:54 BP 161 / 87; Pulse 88; Resp 16; Pulse Ox 99% on R/A; mb9 19:45 BP 120 / 66; Pulse 66; Resp 13 S; Pulse Ox 99% on R/A; aa9 16:46 Body Mass Index 34.76 (80.74 kg, 152.40 cm) jl7 MDM: 16:54 Patient medically screened. snw 22:42 Differential Diagnosis malaise. Data reviewed: vital signs, nurses notes, lab test snw result(s). Counseling: I had a detailed discussion with the patient and/or guardian regarding: the historical points, exam findings, and any diagnostic results supporting the discharge/admit diagnosis, lab results, the need for outpatient follow up, for definitive care, to return to the emergency department if symptoms worsen or persist or if there are any questions or concerns that arise at home. Response to treatment: the patient's symptoms have markedly improved after treatment. Special discussion: Based on the history and exam findings, there is no indication for further emergent testing or inpatient evaluation. I discussed with the patient/guardian the need to see the primary care provider for further evaluation of the symptoms. 07/30 21:25 Order name: Chem 7 aa9 07/30 21:57 Order name: Basic Metabolic Panel; Complete Time: 21:57 EDMS 07/30 17:26 Order name: EKG; Complete Time: 17:27 snw 07/30 17:26 Order name: EKG - Nurse/Tech; Complete Time: 18:22 snw 07/30 22:01 Order name: PO challenge: [place] juice; Complete Time: 22:03 snw EC:25 Rate is 77 beats/min. Rhythm is regular. QRS [place] is Normal. Clinical impression: NSR snw w/ Non-specific ST/T Changes. Administered Medications: 18:14 Drug: NS 0.9% 500 ml Route: IV; Rate: 50 ml/hr; Site: left antecubital; mb9 18:14 Drug: Potassium Effervescent Tablet 50 mEq Route: PO; mb9 18:14 Drug: Potassium Chloride 20 mEq Route: IV; Rate: calculated rate; Site: left mb9 antecubital; 20:14 Follow up: Response: No adverse reaction; IV Status: Completed infusion; IV Intake: aa9 100ml 20:24 Drug: Potassium Chloride 20 mEq Route: IV; Rate: calculated rate; Site: left aa9 antecubital; 22:27 Drug: Insulin Regular Human 5 units {Co-Signature: ll3 (Margy Leigh RN).} Route: aa9 Sub-Q; Site: right lower abdomen; 22:27 Drug: Kayexalate (polystyrene) 15 grams Route: PO; aa9 22:30 Not Given (Physician Discretion): Calcium Gluconate 1 grams IVPB once over 60 mins; aa9 (mix in NS 100 mL) Disposition Summary: 07/30/22 22:43 Discharge Ordered Location: Home snw Condition: Stable snw Diagnosis - Hypokalemia snw Followup: snw - With: Emergency Department - When: As needed - Reason: Worsening of condition Followup: snw - With: Private Physician - When: 2 - 3 days - Reason: Recheck today's complaints, Continuance of care, Re-evaluation by your physician Discharge Instructions: - Discharge Summary Sheet snw - Potassium Content of Foods snw - Hypokalemia snw Forms: - Medication Reconciliation Form snw - Thank You Letter snw - Antibiotic Education snw - Prescription Opioid Use snw Signatures: Dispatcher [employer] EDMS Kimmie Tapia, PRINCIPAL DATA ARCHITECT-C PRINCIPAL DATA ARCHITECT-Csnw Ricky Cruz RN RN jl7 Corry Harp RN RN lora9 Dian Neely RN RN mb9 Margy Leigh RN ll3 Corrections: (The following items were deleted from the chart) 16:50 16:48 PMHx: Stage 4 cancer in stomach; so jl7 16:50 16:48 PSHx: port placed; so rizzo 21:24 21:04 BASIC METABOLIC PANEL+C.LAB.BRZ ordered. EDMS EDMS
[2022-07-31 00:11] VITALS: TEMP 97.2
[2022-07-31 00:13] VITALS: O2SAT 99
[2022-07-31 00:14] VITALS: BP 120/66
--- NOTE | 2022-07-31 16:18 | EKG ---
Test Date: 2022-07-30 Test Time: 18:20:59 Plant Health Manager: MB MEASUREMENT RESULTS: Intervals: Rate: 77 IA: 128 QRSD: 76 QT: 362 QTc: 409 [place]: P: 19 IA: 128 QRS: -10 T: 70 INTERPRETIVE STATEMENTS: Normal sinus rhythm Minimal voltage criteria for LVH, may be normal variant Anterior infarct, age undetermined Abnormal ECG Compared to ECG 05/29/2022 13:06:45 Left ventricular hypertrophy now present Myocardial infarct finding now present T-wave abnormality no longer present Prolonged QT interval no longer present Electronically Signed On 07-31-22 16:17:20 AUTOMOTIVE GENERAL MANAGER by [place]
== END 2022-07-30 23:01 | disposition home or self-care (01) ==
LOC: ER 16:04
DX: E87.6 Hypokalemia (principal); I10 Essential (primary) hypertension; Z85.42 Personal history of malignant neoplasm of other parts of uterus; Z88.8 Allergy status to other drugs, medicaments and biological substances
CPT/HCPCS: 96365; 93005; 80048; 36415; 96372; 99284; 96366; J1815; J3480; J0610; J7040

== ENCOUNTER 2023-10-06 18:11 | Inpatient (IN) | payer OTHER ==
--- OUTSIDE RECORDS SUMMARY | 2023-10-06 18:15 | XMS REPORT | Continuity of Care Document ---
Author Name Unknown Address [address] [place] [address] [facility] thconnect Address [address] [place] [address] Care Team Providers Care Assistant Produce Manager Name Role Phone Michaela Sterling MD Primary Care Physician Michaela Sterling Attending Clinician Unavailable CHRISTIANO DUFF Attending Clinician Unavailable RANJIT BOLES Attending Clinician Unavailable Lab, Ang - Db Attending Clinician Unavailable NwaChristiano Newman Attending Clinician [phone] Doctor Unassigned, [place] Attending Clinician U navailable Vtc-Lab Attending Clinician Unavailable Ranjit Boles MD Attending Clinician [phone] JAIDEN TAN Attending Clinician Unavaila ble Therapy, Adc Covid Infusion Attending Clinician Unavailable Juliano Chan MD Attending Clinician [phone] JULIANO CHAN Attending Clinician Unavailable RANJIT BOLES Admitting Clinician Unavailable Payers Payer Name Policy Type Policy Number Effective Date Expirati on Date Source [employer] [id number] 2021 00:00:00 Problems Condition Name Condition Details Condition Category Status Onset Date Resolution Date Last Treatment Date Treating Clinician Comments Source Hypothyroi dism, unspecifie d type Hypothyroi dism, unspecifie d type Disease Active 07-03 00:00: 00 [facility] Anemia due to chronic blood loss Anemia due to chronic blood loss Disease Active 07-03 00:00: 00 [facility] 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 episode Disease Active 07-03 00:00: 00 [facility] Encounter for antineopla stic chemothera py Encounter for antineopla stic chemothera py Disease Active 07-03 00:00: 00 [facility] EZEQUIEL (generaliz ed anxiety disorder) EZEQUIEL (generaliz ed anxiety disorder) Disease Active 07-03 00:00: 00 [facility] Essential (primary) hypertensi on Essential (primary) hypertensi on Disease Active 07-03 00:00: 00 [facility] Hydronephr osis with ureteral stricture, not elsewhere classified Hydronephr osis with ureteral stricture, not elsewhere classified Disease Active 07-03 00:00: 00 [facility] Hyperglyce amanda due to type 2 diabetes mellitus Hyperglyce amanda due to type 2 diabetes mellitus Disease Active 07-03 00:00: 00 [facility] Left renal atrophy Left renal atrophy Disease Active 07-03 00:00: 00 [facility] Left flank pain Left flank pain Disease Active 07-03 00:00: 00 [facility] 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 Disease Active 07-03 00:00: 00 [facility] 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 Disease Active 07-03 00:00: 00 [facility] Left lower quadrant abdominal pain Left lower quadrant abdominal pain Disease Active 07-03 00:00: 00 [facility] Mass of ureter Mass of ureter Disease Active 07-03 00:00: 00 [facility] Renal mass, left Renal mass, left Disease Active 07-03 00:00: 00 [facility] 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 Disease Active 07-03 00:00: 00 [facility] Secondary malignant neoplasm of other urinary organs Secondary malignant neoplasm of other urinary organs Disease Active 07-03 00:00: 00 [facility] 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 Disease Active 07-03 00:00: 00 [facility] Type 2 diabetes mellitus Type 2 diabetes mellitus Disease Active 07-03 00:00: 00 [facility] Graves disease Graves disease Disease Active 09-05 00:00: 00 [facility] Goiter diffuse Goiter diffuse Disease Active 09-05 00:00: 00 [facility] [id number] Nausea Problem [facility] [id number] Mass of ureter Problem [facility] [id number] Secondary malignant neoplasm of other urinary organs Problem [facility] [id number] Pain due to ureteral stent, initial encounter Problem [facility] [id number] Body mass index [BMI] 36.0-36.9, adult Problem [facility] Disorder of kidney and/or ureter Ureteral mass Problem Common [facility] [id number] Other obesity due to excess calories Problem [facility] [id number] Acquired hypothyroi dism Problem [facility] Antineopla stic chemothera py regimen Encounter for antineopla stic chemothera py Problem [facility] [id number] Hypertrigl yceridemia Problem [facility] [id number] Hyperthyro idism Problem [facility] Allergies, Adverse Reactions, Alerts Allergy Name Allergy Type Status Severity Reaction(s) Onset Date Inactive Date Treating Clinician Comments Source NO KNOWN ALLERGIE S Drug Class Active [facility] Social History Social Habit Start Date Stop Date Quantity Comments Source [facility] of Tobacco Use [facility] Sex Assigned At [facility] History of Social function 2023-09-27 00:00:00 2023-09-27 00:00:00 [facility] Tobacco use and exposure 2023-07-03 00:00:00 2023-07-03 00:00:00 Smokeless tobacco non-user [facility] Exposure to SARS-CoV-2 (event) 2022-06-09 00:00:00 2022-06-19 15:12:00 Not sure [facility] Smoking Status Start Date Stop Date Source Tobacco smoking consumption unknown [facility] Never smoked tobacco [facility] Medications Ordered Medication Name Filled Medication Name Start Date Stop Date Current Medication? Ordering Clinician Indication Dosage Frequency Signature (SIG) Comments Components Source levothyroxi ne 100 mcg tablet 09-29 00:00: 00 Yes [id number] 100ug Take 1 tablet by mouth every morning. [facility] levothyroxi ne 50 mcg tablet 09-26 00:00: 00 09-29 00:00 :00 No [id number] 50ug Take 1 tablet by mouth every morning. [facility] OLANZapine 5 mg tablet 3-15 00:00: 00 Yes 5mg Take 1 tablet by mouth in the morning. [facility] LEVOTHYROXI NE 25 mcg tablet 07-09 00:00: 00 09-26 00:00 :00 No [id number] 25ug TAKE 1 TABLET BY MOUTH EVERY DAY IN THE MORNING [facility] traMADoL 50 mg tablet 07-03 20:55: 45 Yes 50mg Take 1 tablet by mouth. [facility] fenofibrate 145 mg tablet 07-03 20:54: 57 Yes 145mg Take 1 tablet by mouth in the morning. [facility] levothyroxi ne 25 mcg tablet 07-03 00:00: 00 07-09 00:00 :00 No [id number] 25ug Take 1 tablet by mouth every morning. [facility] diazePAM 10 MG diazePAM 10 MG - 00:00: 00 No QD diazePAM 10 MG diazePAM 10 MG diazePAM 10 MG 07-02 00:00: 00 No QD diazePAM 10 MG ondansetron 8 mg tablet 2021-06 2 00:00: 00 Yes 8mg Take 1 tablet by mouth as needed for Nausea and Vomiting (N/V). [facility] Ondansetron HCl 8 MG Ondansetron HCl 8 MG 2021- 2- 00:00: 00 No 1{table t_as_ne eded} QD Ondansetro n HCl 8 MG Ondansetron HCl 8 MG Ondansetron HCl 8 MG 2021- 2 00:00: 00 No 1{table t_as_ne eded} QD Ondansetro n HCl 8 MG Ondansetron HCl 8 MG Ondansetron HCl 8 MG 2021- 2- 00:00: 00 No 1{table t_as_ne eded} QD Ondansetro n HCl 8 MG Ondansetron HCl 8 MG Ondansetron HCl 8 MG 2021-1 2- 00:00: 00 No 1{table t_as_ne eded} QD Ondansetro n HCl 8 MG Ondansetron HCl 8 MG Ondansetron HCl 8 MG 2021-1 2- 00:00: 00 No 1{table t_as_ne eded} QD Ondansetro n HCl 8 MG Ondansetron HCl 8 MG Ondansetron HCl 8 MG 2021-1 2- 00:00: 00 No 1{table t_as_ne eded} QD Ondansetro n HCl 8 MG Ondansetron HCl 8 MG Ondansetron HCl 8 MG 2021-1 2-08 00:00: 00 No 1{table t_as_ne eded} QD Ondansetro n HCl 8 MG Ondansetron HCl 8 MG Ondansetron HCl 8 MG 2021-1 2- 00:00: 00 No 1{table t_as_ne eded} QD Ondansetro n HCl 8 MG Ondansetron HCl 8 MG Ondansetron HCl 8 MG 2-1 2-08 00:00: 00 No 1{table t_as_ne eded} QD Ondansetro n HCl 8 MG Ondansetron HCl 8 MG Ondansetron HCl 8 MG 2-1 2-08 00:00: 00 No 1{table t_as_ne eded} QD Ondansetro n HCl 8 MG Ondansetron HCl 8 MG Ondansetron HCl 8 MG 2-1 2-08 00:00: 00 No 1{table t_as_ne eded} QD Ondansetro n HCl 8 MG Ondansetron HCl 8 MG Ondansetron HCl 8 MG 2-1 2- 00:00: 00 No 1{table t_as_ne eded} QD Ondansetro n HCl 8 MG Ondansetron HCl 8 MG Ondansetron HCl 8 MG 2-1 2- 00:00: 00 No 1{table t_as_ne eded} QD Ondansetro n HCl 8 MG Ondansetron HCl 8 MG Ondansetron HCl 8 MG 2-1 2- 00:00: 00 No 1{table t_as_ne eded} QD Ondansetro n HCl 8 MG Ondansetron HCl 8 MG Ondansetron HCl 8 MG 2-1 2- 00:00: 00 No 1{table t_as_ne eded} QD Ondansetro n HCl 8 MG Ondansetron HCl 8 MG Ondansetron HCl 8 MG 2-1 2-08 00:00: 00 No 1{table t_as_ne eded} QD Ondansetro n HCl 8 MG Ondansetron HCl 8 MG Ondansetron HCl 8 MG 2-1 2-08 00:00: 00 No 1{table t_as_ne eded} QD Ondansetro n HCl 8 MG Ondansetron HCl 8 MG Ondansetron HCl 8 MG 2-1 2-08 00:00: 00 No 1{table t_as_ne eded} QD Ondansetro n HCl 8 MG Ondansetron HCl 8 MG Ondansetron HCl 8 MG 2021-06 2-08 00:00: 00 No 1{table t_as_ne eded} QD Ondansetro n HCl 8 MG Ondansetron HCl 8 MG Ondansetron HCl 8 MG 2021-06 2-08 00:00: 00 No 1{table t_as_ne eded} QD Ondansetro n HCl 8 MG traMADol HCl 50 MG traMADol HCl 50 MG 2021-06 2- 00:00: 00 06-01 00:00 :00 No 1{table t_as_ne eded} TID traMADol HCl 50 MG traMADol HCl 50 MG traMADol HCl 50 MG 2021-06 2- 00:00: 00 06-01 00:00 :00 No 1{table t_as_ne eded} TID traMADol HCl 50 MG PROPRANOLOL 20 mg tablet 2021-06 0-25 00:00: 00 06-19 00:00 :00 No [id number] 20mg TAKE 1 TABLET BY MOUTH IN THE MORNING AND 1 TABLET IN THE EVENING. [facility] Sertraline HCl 25 MG Sertraline HCl 25 MG 9-30 00:00: 00 No 1{table t} QD Sertraline HCl 25 MG Sertraline HCl 25 MG Sertraline HCl 25 MG 9-30 00:00: 00 No 1{table t} QD Sertraline HCl 25 MG Cephalexin 500 MG Cephalexin 500 MG 9-07 00:00: 00 02-21 00:00 :00 No 1{table t} BID Cephalexin 500 MG propranoloL 20 mg tablet 7-28 00:00: 00 04-03 00:00 :00 No [id number] 20mg Take 1 tablet by mouth in the morning and 1 tablet in the evening. [facility] buPROPion HCl ER (XL) 300 MG buPROPion HCl ER (XL) 300 MG 5-20 00:00: 00 No 1{table t_in_th e_morni ng} QD buPROPion HCl ER (XL) 300 MG SERTraline 25 mg tablet 3-11 00:00: 00 Yes TAKE 1 TABLET BY MOUTH EVERY DAY FOR 30 DAYS [facility] Lisinopril 40 MG Lisinopril 40 MG 2021-0 3-11 00:00: 00 No 1{table t} QD Lisinopril 40 MG Lisinopril 40 MG Lisinopril 40 MG 2021-0 3-11 00:00: 00 No 1{table t} QD Lisinopril 40 MG Lisinopril 40 MG Lisinopril 40 MG 2021-0 3-11 00:00: 00 No 1{table t} QD Lisinopril 40 MG citalopram 10 mg tablet 2- 00:00: 00 Yes TAKE 1 TABLET BY MOUTH EVERY DAY FOR 30 DAYS [facility] Propranolol HCl 20 MG Propranolol HCl 20 MG No 1{table t} BID Propranolo l HCl 20 MG Propranolol HCl 20 MG Propranolol HCl 20 MG No 1{table t} BID Propranolo l HCl 20 MG Sertraline HCl 25 MG Sertraline HCl 25 MG No Sertraline HCl 25 MG Propranolol HCl 20 MG Propranolol HCl 20 MG No 1{table t} BID Propranolo l HCl 20 MG amLODIPine Besylate 10 MG amLODIPine Besylate 10 MG No amLODIPine Besylate 10 MG Lisinopril 40 MG Lisinopril 40 MG No Lisinopril 40 MG Propranolol HCl 20 MG/5ML Propranolol HCl 20 MG/5ML No 5{ml} QD Propranolo l HCl 20 MG/5ML amLODIPine Besylate 10 MG amLODIPine Besylate 10 MG No amLODIPine Besylate 10 MG traMADol HCl 50 MG traMADol HCl 50 MG No 1{table t_as_ne eded} QD traMADol HCl 50 MG methIMAzole 10 MG methIMAzole 10 MG No 1{table t} QD methIMAzol e 10 MG Lisinopril 40 MG Lisinopril 40 MG No Lisinopril 40 MG Propranolol HCl 20 MG/5ML Propranolol HCl 20 MG/5ML No 5{ml} QD Propranolo l HCl 20 MG/5ML traMADol HCl 50 MG traMADol HCl 50 MG No 1{table t_as_ne eded} QD traMADol HCl 50 MG methIMAzole 10 MG methIMAzole 10 MG No 1{table t} QD methIMAzol e 10 MG Fenofibrate 145 MG Fenofibrate 145 MG No 1{table t} QD Fenofibrat e 145 MG amLODIPine Besylate 10 MG amLODIPine Besylate 10 MG No amLODIPine Besylate 10 MG traMADol HCl 50 MG traMADol HCl 50 MG No 1{table t_as_ne eded} QD traMADol HCl 50 MG methIMAzole 10 MG methIMAzole 10 MG No 1{table t} QD methIMAzol e 10 MG Fenofibrate 145 MG Fenofibrate 145 MG No 1{table t} QD Fenofibrat e 145 MG amLODIPine Besylate 10 MG amLODIPine Besylate 10 MG No amLODIPine Besylate 10 MG traMADol HCl 50 MG traMADol HCl 50 MG No 1{table t_as_ne eded} QD traMADol HCl 50 MG methIMAzole 10 MG methIMAzole 10 MG No 1{table t} QD methIMAzol e 10 MG Fenofibrate 145 MG Fenofibrate 145 MG No 1{table t} QD Fenofibrat e 145 MG amLODIPine Besylate 10 MG amLODIPine Besylate 10 MG No amLODIPine Besylate 10 MG traMADol HCl 50 MG traMADol HCl 50 MG No 1{table t_as_ne eded} QD traMADol HCl 50 MG methIMAzole 10 MG methIMAzole 10 MG No 1{table t} QD methIMAzol e 10 MG Fenofibrate 145 MG Fenofibrate 145 MG No 1{table t} QD Fenofibrat e 145 MG amLODIPine Besylate 10 MG amLODIPine Besylate 10 MG No amLODIPine Besylate 10 MG traMADol HCl 50 MG traMADol HCl 50 MG No 1{table t_as_ne eded} QD traMADol HCl 50 MG methIMAzole 10 MG methIMAzole 10 MG No 1{table t} QD methIMAzol e 10 MG Fenofibrate 145 MG Fenofibrate 145 MG No 1{table t} QD Fenofibrat e 145 MG amLODIPine Besylate 10 MG amLODIPine Besylate 10 MG No amLODIPine Besylate 10 MG traMADol HCl 50 MG traMADol HCl 50 MG No 1{table t_as_ne eded} QD traMADol HCl 50 MG methIMAzole 10 MG methIMAzole 10 MG No 1{table t} QD methIMAzol e 10 MG Fenofibrate 145 MG Fenofibrate 145 MG No 1{table t} QD Fenofibrat e 145 MG amLODIPine Besylate 10 MG amLODIPine Besylate 10 MG No amLODIPine Besylate 10 MG traMADol HCl 50 MG traMADol HCl 50 MG No 1{table t_as_ne eded} QD traMADol HCl 50 MG methIMAzole 10 MG methIMAzole 10 MG No 1{table t} QD methIMAzol e 10 MG Fenofibrate 145 MG Fenofibrate 145 MG No 1{table t} QD Fenofibrat e 145 MG amLODIPine Besylate 10 MG amLODIPine Besylate 10 MG No amLODIPine Besylate 10 MG traMADol HCl 50 MG traMADol HCl 50 MG No 1{table t_as_ne eded} QD traMADol HCl 50 MG methIMAzole 10 MG methIMAzole 10 MG No 1{table t} QD methIMAzol e 10 MG Fenofibrate 145 MG Fenofibrate 145 MG No 1{table t} QD Fenofibrat e 145 MG amLODIPine Besylate 10 MG amLODIPine Besylate 10 MG No amLODIPine Besylate 10 MG traMADol HCl 50 MG traMADol HCl 50 MG No 1{table t_as_ne eded} QD traMADol HCl 50 MG methIMAzole 10 MG methIMAzole 10 MG No 1{table t} QD methIMAzol e 10 MG Fenofibrate 145 MG Fenofibrate 145 MG No 1{table t} QD Fenofibrat e 145 MG traMADol HCl 50 MG traMADol HCl 50 MG No 1{table t_as_ne eded} QD traMADol HCl 50 MG methIMAzole 10 MG methIMAzole 10 MG No 1{table t} QD methIMAzol e 10 MG methIMAzole 10 MG methIMAzole 10 MG No 1{table t} QD methIMAzol e 10 MG Propranolol HCl 20 MG Propranolol HCl 20 MG No 1{table t} BID Propranolo l HCl 20 MG Fenofibrate 145 MG Fenofibrate 145 MG No 1{table t} QD Fenofibrat e 145 MG traMADol HCl 50 MG traMADol HCl 50 MG No 1{table t_as_ne eded} QD traMADol HCl 50 MG methIMAzole 10 MG methIMAzole 10 MG No 1{table t} QD methIMAzol e 10 MG traMADol HCl 50 MG traMADol HCl 50 MG No 1{table t_as_ne eded} QD traMADol HCl 50 MG Fenofibrate 145 MG Fenofibrate 145 MG No 1{table t} QD Fenofibrat e 145 MG methIMAzole 10 MG methIMAzole 10 MG No 1{table t} QD methIMAzol e 10 MG amLODIPine Besylate 10 MG amLODIPine Besylate 10 MG No amLODIPine Besylate 10 MG Lisinopril 40 MG Lisinopril 40 MG No Lisinopril 40 MG Fenofibrate 145 MG Fenofibrate 145 MG No 1{table t} QD Fenofibrat e 145 MG Rosuvastati n Calcium 20 MG Rosuvastati n Calcium 20 MG No 1{table t} QD Rosuvastat in Calcium 20 MG glipiZIDE 10 MG glipiZIDE 10 MG No BID glipiZIDE 10 MG traMADol HCl 50 MG traMADol HCl 50 MG No 1{table t_as_ne eded} QD traMADol HCl 50 MG methIMAzole 10 MG methIMAzole 10 MG No 1{table t} QD methIMAzol e 10 MG Rosuvastati n Calcium 20 MG Rosuvastati n Calcium 20 MG No Rosuvastat in Calcium 20 MG buPROPion HCl ER (XL) 150 MG buPROPion HCl ER (XL) 150 MG No 1{table t_in_ e_morni ng} QD buPROPion HCl ER (XL) 150 MG amLODIPine Besylate 10 MG amLODIPine Besylate 10 MG No amLODIPine Besylate 10 MG Lisinopril 40 MG Lisinopril 40 MG No Lisinopril 40 MG Fenofibrate 145 MG Fenofibrate 145 MG No 1{table t} QD Fenofibrat e 145 MG Rosuvastati n Calcium 20 MG Rosuvastati n Calcium 20 MG No 1{table t} QD Rosuvastat in Calcium 20 MG glipiZIDE 10 MG glipiZIDE 10 MG No BID glipiZIDE 10 MG traMADol HCl 50 MG traMADol HCl 50 MG No 1{table t_as_ne eded} QD traMADol HCl 50 MG methIMAzole 10 MG methIMAzole 10 MG No 1{table t} QD methIMAzol e 10 MG buPROPion HCl ER (XL) 150 MG buPROPion HCl ER (XL) 150 MG No 1{table t_in_th e_morni ng} QD buPROPion HCl ER (XL) 150 MG amLODIPine Besylate 10 MG amLODIPine Besylate 10 MG No amLODIPine Besylate 10 MG Lisinopril 40 MG Lisinopril 40 MG No Lisinopril 40 MG Fenofibrate 145 MG Fenofibrate 145 MG No 1{table t} QD Fenofibrat e 145 MG Rosuvastati n Calcium 20 MG Rosuvastati n Calcium 20 MG No 1{table t} QD Rosuvastat in Calcium 20 MG glipiZIDE 10 MG glipiZIDE 10 MG No BID glipiZIDE 10 MG traMADol HCl 50 MG traMADol HCl 50 MG No 1{table t_as_ne eded} QD traMADol HCl 50 MG methIMAzole 10 MG methIMAzole 10 MG No 1{table t} QD methIMAzol e 10 MG buPROPion HCl ER (XL) 150 MG buPROPion HCl ER (XL) 150 MG No 1{table t_in_ e_morni ng} QD buPROPion HCl ER (XL) 150 MG amLODIPine Besylate 10 MG amLODIPine Besylate 10 MG No amLODIPine Besylate 10 MG Lisinopril 40 MG Lisinopril 40 MG No Lisinopril 40 MG Fenofibrate 145 MG Fenofibrate 145 MG No 1{table t} QD Fenofibrat e 145 MG Rosuvastati n Calcium 20 MG Rosuvastati n Calcium 20 MG No 1{table t} QD Rosuvastat in Calcium 20 MG glipiZIDE 10 MG glipiZIDE 10 MG No BID glipiZIDE 10 MG traMADol HCl 50 MG traMADol HCl 50 MG No 1{table t_as_ne eded} QD traMADol HCl 50 MG methIMAzole 10 MG methIMAzole 10 MG No 1{table t} QD methIMAzol e 10 MG buPROPion HCl ER (XL) 150 MG buPROPion HCl ER (XL) 150 MG No 1{table t_in_ e_morni ng} QD buPROPion HCl ER (XL) 150 MG Vital Signs Vital Name Observation Time Observation Value Comments Althea joshi Systolic blood pressure 2023-09-27 14:15:00 116 mm[Hg] [facility] Diastolic blood pressure 2023-09-27 14:15:00 77 mm[Hg] [facility] Heart rate 2023-09-27 14:15:00 74 /min [facility] Body height 2023-09-27 14:15:00 149.9 cm [facility] Body weight 2023-09-27 14:15:00 91.218 kg [facility] BMI 2023-09-27 14:15:00 40.62 kg/m2 [facility] Oxygen saturation in Arterial blood by Pulse oximetry 2023-09-27 14:15:00 98 /min [facility] Systolic blood pressure 2023-07-03 14:14:00 103 mm[Hg] [facility] Diastolic blood pressure 2023-07-03 14:14:00 71 mm[Hg] [facility] Heart rate 2023-07-03 14:14:00 78 /min [facility] 2023-07-03 14:14:00 16 /min [facility] Body height 2023-07-03 14:14:00 149.9 cm [facility] Body weight 2023-07-03 14:14:00 93.532 kg [facility] BMI 2023-07-03 14:14:00 41.65 kg/m2 [facility] Oxygen saturation in Arterial blood by Pulse oximetry 2023-07-03 14:14:00 97 /min [facility] height 2023-07-02 11:40:00 60 [in_i] Commo n [facility] weight 2023-07-02 11:40:00 209 [lb_av] Comm on [facility] bmi 2023-07-02 11:40:00 40.81 kg/m2 Comm on [facility] height 2023-05-22 14:45:00 60 [in_i] Commo n [facility] weight 2023-05-22 14:45:00 203.6 [lb_av] Co mmon [facility] temperature 2023-05-22 14:45:00 97.3 [degF] Com mon [facility] bmi 2023-05-22 14:45:00 39.76 kg/m2 Comm on [facility] oximetry 2023-05-22 14:45:00 99 % Commo n [facility] respiratory rate 2023-05-22 14:45:00 18 /min Common [facility] blood pressure systolic 2023-05-22 14:45:00 116 mm[Hg[facility] blood pressure diastolic 2023-05-22 14:45:00 59 mm[Hg] [facility] height 2023-03-29 10:00:00 60 [in_i] Commo n [facility] weight 2023-03-29 10:00:00 196 [lb_av] Comm on [facility] bmi 2023-03-29 10:00:00 38.27 kg/m2 Comm on [facility] height 2023-01-03 11:00:00 60 [in_i] Commo n [facility] weight 2023-01-03 11:00:00 196 [lb_av] Comm on [facility] temperature 2023-01-03 11:00:00 97.3 [degF] Com mon [facility] bmi 2023-01-03 11:00:00 38.27 kg/m2 Comm on [facility] oximetry 2023-01-03 11:00:00 96 % Commo n [facility] respiratory rate 2023-01-03 11:00:00 16 /min [facility] blood pressure systolic 2023-01-03 11:00:00 132 mm[Hg] [facility] blood pressure diastolic 2023-01-03 11:00:00 68 mm[Hg] [facility] height 2022-09-28 13:00:00 60 [in_i] Commo n [facility] weight 2022-09-28 13:00:00 187 [lb_av] Comm on [facility] temperature 2022-09-28 13:00:00 97.6 [degF] Com mon [facility] bmi 2022-09-28 13:00:00 36.52 kg/m2 Comm on [facility] oximetry 2022-09-28 13:00:00 97 % Commo n [facility] respiratory rate 2022-09-28 13:00:00 17 /min [facility] blood pressure systolic 2022-09-28 13:00:00 128 mm[Hg] [facility] blood pressure diastolic 2022-09-28 13:00:00 72 mm[Hg] [facility] height 2022-09-19 14:00:00 60 [in_i] Commo n [facility] weight 2022-09-19 14:00:00 187.8 [lb_av] Co mmon [facility] temperature 2022-09-19 14:00:00 97.6 [degF] Com [facility] bmi 2022-09-19 14:00:00 36.67 kg/m2 Comm on [facility] oximetry 2022-09-19 14:00:00 95 % Commo n [facility] respiratory rate 2022-09-19 14:00:00 18 /min [facility] blood pressure systolic 2022-09-19 14:00:00 118 mm[Hg] [facility] blood pressure diastolic 2022-09-19 14:00:00 75 mm[Hg] [facility] height 2022-07-18 09:30:00 60 [in_i] Commo n [facility] weight 2022-07-18 09:30:00 184.8 [lb_av] Co mmon [facility] temperature 2022-07-18 09:30:00 98.2 [degF] Com [facility] bmi 2022-07-18 09:30:00 36.09 kg/m2 Comm on [facility] oximetry 2022-07-18 09:30:00 99 % Commo n [facility] respiratory rate 2022-07-18 09:30:00 18 /min [facility] blood pressure systolic 2022-07-18 09:30:00 126 mm[Hg] [facility] blood pressure diastolic 2022-07-18 09:30:00 61 mm[Hg] [facility] height 2022-07-02 10:40:00 60 [in_i] Commo n [facility] weight 2022-07-02 10:40:00 189.8 [lb_av] Co mmon [facility] temperature 2022-07-02 10:40:00 97.6 [degF] Com mon [facility] bmi 2022-07-02 10:40:00 37.06 kg/m2 [facility] [facility] 2022-07-02 10:40:00 95 % Commo n [facility] respiratory rate 2022-07-02 10:40:00 17 /min [facility] blood pressure systolic 2022-07-02 10:40:00 136 mm[Hg] [facility] blood pressure diastolic 2022-07-02 10:40:00 68 mm[Hg] [facility] Systolic blood pressure 2022-06-19 21:14:00 133 mm[Hg] [facility] Diastolic blood pressure 2022-06-19 21:14:00 85 mm[Hg] [facility] Heart rate 2022-06-19 21:14:00 79 /min [facility] height 2022-06-19 21:14:00 149.9 cm [facility] Body weight 2022-06-19 21:14:00 87.68 kg [facility] BMI 2022-06-19 21:14:00 39.04 kg/m2 [facility] Oxygen saturation in Arterial blood by Pulse oximetry 2022-06-19 21:14:00 98 /min [facility] height 2022-06-14 14:00:00 60 [in_i] Commo n [facility] weight 2022-06-14 14:00:00 193.8 [lb_av] Co mmon [facility] temperature 2022-06-14 14:00:00 97.4 [degF] Com [facility] bmi 2022-06-14 14:00:00 37.84 kg/m2 Comm on [facility] oximetry 2022-06-14 14:00:00 96 % Commo n [facility] respiratory rate 2022-06-14 14:00:00 18 /min Common [facility] blood pressure systolic 2022-06-14 14:00:00 145 mm[Hg] [facility] blood pressure diastolic 2022-06-14 14:00:00 75 mm[Hg] [facility] height 2022-05-24 15:45:00 60 [in_i] Commo n [facility] weight 2022-05-24 15:45:00 199.8 [lb_av] Co mmon [facility] temperature 2022-05-24 15:45:00 97.5 [degF] Com [facility] bmi 2022-05-24 15:45:00 39.02 kg/m2 Comm on [facility] oximetry 2022-05-24 15:45:00 96 % Commo n [facility] respiratory rate 2022-05-24 15:45:00 17 /min Common [facility] blood pressure systolic 2022-05-24 15:45:00 133 mm[Hg] [facility] blood pressure diastolic 2022-05-24 15:45:00 80 mm[Hg] Common [facility] height 2022-05-17 13:20:00 60 [in_i] Commo n [facility] weight 2022-05-17 13:20:00 200.8 [lb_av] Co mmon [facility] temperature 2022-05-17 13:20:00 97.4 [degF] Com mon [facility] bmi 2022-05-17 13:20:00 39.21 kg/m2 Comm on [facility] oximetry 2022-05-17 13:20:00 98 % Commo n [facility] respiratory rate 2022-05-17 13:20:00 17 /min Common [facility] blood pressure systolic 2022-05-17 13:20:00 137 mm[Hg] [facility] blood pressure diastolic 2022-05-17 13:20:00 67 mm[Hg] Common [facility] height 2022-05-01 09:20:00 60 [in_i] Commo n [facility] weight 2022-05-01 09:20:00 200.4 [lb_av] Co [facility] temperature 2022-05-01 09:20:00 97.8 [degF] Com [facility] bmi 2022-05-01 09:20:00 39.13 kg/m2 Comm on [facility] oximetry 2022-05-01 09:20:00 96 % Commo n [facility] respiratory rate 2022-05-01 09:20:00 17 /min [facility] blood pressure systolic 2022-05-01 09:20:00 120 mm[Hg] [facility] blood pressure diastolic 2022-05-01 09:20:00 64 mm[Hg] Common [facility] height 2022-04-10 11:40:00 60 [in_i] Commo n [facility] weight 2022-04-10 11:40:00 199.8 [lb_av] Co [facility] temperature 2022-04-10 11:40:00 97.2 [degF] Com [facility] bmi 2022-04-10 11:40:00 39.02 kg/m2 Comm on [facility] oximetry 2022-04-10 11:40:00 97 % Commo n [facility] respiratory rate 2022-04-10 11:40:00 17 /min Common [facility] blood pressure systolic 2022-04-10 11:40:00 134 mm[Hg] [facility] blood pressure diastolic 2022-04-10 11:40:00 82 mm[Hg] [facility] height 2022-02-14 11:20:00 60 [in_i] Commo n [facility] weight 2022-02-14 11:20:00 194.4 [lb_av] Co mmon [facility] temperature 2022-02-14 11:20:00 98.6 [degF] Com mon [facility] bmi 2022-02-14 11:20:00 37.96 kg/m2 Comm on [facility] oximetry 2022-02-14 11:20:00 96 % Commo n [facility] respiratory rate 2022-02-14 11:20:00 16 /min [facility] blood pressure systolic 2022-02-14 11:20:00 130 mm[Hg] [facility] blood pressure diastolic 2022-02-14 11:20:00 72 mm[Hg] [facility] Systolic blood pressure 2021-12-12 19:31:00 130 mm[Hg] [facility] Diastolic blood pressure 2021-12-12 19:31:00 86 mm[Hg] [facility] Heart rate 2021-12-12 19:31:00 69 /min [facility] height 2021-12-12 19:31:00 149.9 cm [facility] weight 2021-12-12 19:31:00 85.458 kg [facility] BMI 2021-12-12 19:31:00 38.05 kg/m2 [facility] Oxygen saturation in Arterial blood by Pulse oximetry 2021-12-12 19:31:00 97 /min [facility] height 2021-11-24 16:00:00 60 [in_i] Commo n [facility] weight 2021-11-24 16:00:00 184.4 [lb_av] Co mmon [facility] temperature 2021-11-24 16:00:00 97.6 [degF] Com mon [facility] bmi 2021-11-24 16:00:00 36.01 kg/m2 Comm on [facility] oximetry 2021-11-24 16:00:00 98 % Commo n [facility] respiratory rate 2021-11-24 16:00:00 17 /min [facility] blood pressure systolic 2021-11-24 16:00:00 132 mm[Hg] [facility] blood pressure diastolic 2021-11-24 16:00:00 74 mm[Hg] [facility] height 2021-10-27 09:20:00 60 [in_i] Commo n [facility] weight 2021-10-27 09:20:00 178 [lb_av] Comm on [facility] bmi 2021-10-27 09:20:00 34.76 kg/m2 Comm on [facility] height 2021-09-29 09:20:00 60 [in_i] Commo n [facility] weight 2021-09-29 09:20:00 182.2 [lb_av] Co mmon [facility] temperature 2021-09-29 09:20:00 97.9 [degF] Com [facility] bmi 2021-09-29 09:20:00 35.58 kg/m2 Comm on [facility] oximetry 2021-09-29 09:20:00 99 % Commo n [facility] respiratory rate 2021-09-29 09:20:00 16 /min [facility] blood pressure systolic 2021-09-29 09:20:00 136 mm[Hg] [facility] blood pressure diastolic 2021-09-29 09:20:00 74 mm[Hg] [facility] height 2021-09-04 11:20:00 60 [in_i] Commo n [facility] weight 2021-09-04 11:20:00 182.2 [lb_av] Co [facility] temperature 2021-09-04 11:20:00 97.9 [degF] Com [facility] bmi 2021-09-04 11:20:00 35.58 kg/m2 Comm on [facility] oximetry 2021-09-04 11:20:00 98 % Commo n [facility] respiratory rate 2021-09-04 11:20:00 16 /min [facility] height 2021-08-18 08:40:00 60 [in_i] Commo n [facility] weight 2021-08-18 08:40:00 184.0 [lb_av] Co [facility] temperature 2021-08-18 08:40:00 97.5 [degF] Com [facility] bmi 2021-08-18 08:40:00 35.93 kg/m2 Comm on [facility] oximetry 2021-08-18 08:40:00 95 % Commo n [facility] respiratory rate 2021-08-18 08:40:00 16 /min [facility] height 2021-08-07 15:00:00 60 [in_i] Commo n [facility] weight 2021-08-07 15:00:00 187.6 [lb_av] Co [facility] temperature 2021-08-07 15:00:00 97.4 [degF] Com mon [facility] bmi 2021-08-07 15:00:00 36.63 kg/m2 Comm on [facility] oximetry 2021-08-07 15:00:00 97 % Commo n [facility] respiratory rate 2021-08-07 15:00:00 18 /min [facility] blood pressure systolic 2021-08-07 15:00:00 162 mm[Hg] [facility] blood pressure diastolic 2021-08-07 15:00:00 84 mm[Hg] [facility] Procedures Procedure Date / Time Performed Performing Clinician Source EXTERNAL PROVIDER RECORDS 2023-07-15 06:01:00 Doctor Unassigned, [place] [facility] FREE T4 2023-07-03 15:13:00 Christiano Duff [facility] THYROID STIMULATING HORMONE 2023-07-03 15:13:00 Christiano Duff [facility] ASSIGNMENT OF BENEFITS 2023-07-03 13:54:40 Docto r Unassigned, [place] [facility] CONSENT/REFUSAL FOR DIAGNOSIS AND TREATMENT 2022-06-19 21:12:30 Doctor Unassigned, [place] [facility] US HEAD NECK 2022-01-02 15:36:00 Ranjit Boles [facility] ASSIGNMENT OF BENEFITS 2022-01-02 14:48:17 Docto r Unassigned, [place] [facility] Encounters Start Date/Time End Date/Time Encounter Type Admission Type Attending Clinicians Care Facility Care Department Encounter ID Source 2023-03-27 08:18:00 [facility] [id number] [facility] 2023-01-01 08:45:00 Outpatient [facility] [id number] [facility] 2022-10-22 07:49:00 Out[facility] [id number] [facility] 2022-07-18 14:20:01 Outpatient SterlingMichaela bell STLMLC ST[facility] [id number] [facility] 2022-06-28 08:15:01 Outpatient SterlingMichaela [facility] [id number] [facility] 2022-06-12 12:28:01 Outpatient SterlingiMchaela [facility] [id number] [facility] 2022-05-18 09:20:04 Outpatient SterlingMichaela STLMLC STL[facility] [id number] [facility] 2022-04-30 13:13:05 Outpatient SterlingMichaela STLMLC STL[facility] [id number] [facility] 2022-04-06 14:41:02 Outpatient SterlingMichaela STLMLC STL[facility] [id number] [facility] 2022-03-07 11:09:02 Outpatient SterlingMichaela STLMLC STL[facility] [id number] [facility] 2021-11-08 13:20:01 Outpatient SterlingMichaela bell STLMLC ST[facility] [id number] [facility] 2021-10-25 08:53:05 Outpatient SterlingMichaela bell STLMLC ST[facility] [id number] [facility] 2021-10-24 09:59:07 Outpatient SterlingMichaela STLMLC STLMLC [id number] [facility] 2021-09-27 10:29:03 Outpatient SterlingClinti STLMLC STL[facility]C [id number] [facility] 2021-09-21 14:37:02 Outpatient Sterling Michaela STLMLC ST[facility] [id number] [facility] 2021-08-07 15:01:01 Outpatient SterlingClinti STLMLC ST[facility] [id number] [facility] 2023-12-03 14:00:00 2023-12-03 14:00:00 Outpatient R BOLESRANJIT [facility] [id number] [facility] 2023-09-27 10:15:00 2023-09-27 10:30:00 Manufacturing Weaver Visit Lab, Ang - [facility] 1.840.114 350.1.13.10 4.2.7.2.686 [id number] [facility] 2023-09-27 09:30:00 2023-09-27 10:02:05 Outpatient R SRAVANIRUBENSTodd [facility] [id number] [facility] 2023-09-27 09:30:00 2023-09-27 10:02:05 Office Visit nick [facility] 1.84.114 350.1.13.10 4.2.7.2.686 [id number] [facility] 2023-07-15 00:00:00 2023-07-15 00:00:00 Orders Only Doctor Unassigned, [place] [facility] 1.840.114 350.1.13.10 4.2.7.2.686 [id number] [facility] 2023-07-09 00:00:00 2023-07-09 00:00:00 Outpatient R SRAVANIRUBENSTodd [facility] [id number] [facility] 2023-07-03 09:15:00 2023-07-03 09:30:00 Manufacturing Weaver Visit Vtc-Lab [facility] AND [facility] 1.84.114 350.1.13.10 4.2.7.2.686 [id number] [facility] 2023-07-03 08:30:00 2023-07-03 09:09:29 [facility] [id number] [facility] 2023-07-03 08:30:00 2023-07-03 09:09:29 Office Visit Sravanirubenstodd [facility] 1.840.114 350.1.13.10 4.2.7.2.686 [id number] [facility] 2023-07-03 00:00:00 2023-07-03 00:00:00 Orders Only Doctor Unassigned, [place] [facility] 1.2840.114 350.1.13.10 4.2.7.2.686 [id number] [facility] 2023-07-03 00:00:00 2023-07-03 00:00:00 [facility] 1.840.114 350.1.13.10 4.2.7.2.686 [id number] 220 [id number] [facility] 2023-07-03 00:00:00 2023-07-03 00:00:00 [facility] 1.840.114 350.1.13.10 4.2.7.2.686 [id number] [facility] 2023-07-02 00:00:00 2023-07-02 00:00:00 OFFICE VISIT ESTAB PT LEVEL 4 STLMLC STLMLC [id number] [facility] 2023-06-27 00:00:00 2023-06-27 00:00:00 (TEL) STLMLC STLMLC [id number] [facility] 2023-06-27 00:00:00 2023-06-27 00:00:00 Telephone Ranjit Boles [facility] 1.2.840.114 350.1.13.10 4.2.7.2.686 [id number] [facility] 2023-05-23 00:00:00 2023-05-23 00:00:00 (TEL) STLMLC STLMLC [id number] [facility] 2023-05-22 00:00:00 2023-05-22 00:00:00 OFFICE VISIT ESTAB PT LEVEL 4 STLMLC STLMLC [id number] [facility] 2023-04-30 09:00:00 2023-04-30 09:00:00 [facility] [id number] [facility] 2023-03-29 00:00:00 2023-03-29 00:00:00 OFFICE VISIT ESTAB PT LEVEL 4 STLMLC STLMLC [id number] [facility] 2023-02-21 00:00:00 2023-02-21 00:00:[address] [facility] 1.2.840.114 350.1.13.10 4.2.7.2.686 [id number] [facility] 2023-01-03 00:00:00 2023-01-03 00:00:00 OFFICE VISIT ESTAB PT LEVEL 4 STLMLC STLMLC [id number] [facility] 2022-11-15 00:00:00 2022-11-15 00:00:00 Patient Secure Msg Doctor Unassigned, [place] [facility] 1.2.840.114 350.1.13.10 4.2.7.2.686 [id number] [facility] 2022-10-24 00:00:00 2022-10-24 00:00:00 OFFICE VISIT ESTAB PT LEVEL 3 STLMLC STLMLC [id number] [facility] 2022-09-28 00:00:00 2022-09-28 00:00:00 OFFICE VISIT ESTAB PT LEVEL 5 STLMLC STLMLC [id number] [facility] 2022-09-19 00:00:00 2022-09-19 00:00:00 OFFICE VISIT ESTAB PT LEVEL 3 STLMLC STLMLC [id number] [facility] 2022-09-19 00:00:00 2022-09-19 00:00:00 (TEL) STLMLC STLMLC [id number] [facility] 2022-09-12 00:00:00 2022-09-12 00:00:00 (TEL) STLMLC STLMLC [id number] [facility] 2022-09-11 00:00:00 2022-09-11 00:00:00 (TEL) STLMLC STLMLC [id number] [facility] 2022-09-11 00:00:00 2022-09-11 00:00:00 (TEL) STLMLC STLMLC [id number] [facility] 2022-09-10 00:00:00 2022-09-10 00:00:00 (TEL) STLMLC STLMLC [id number] [facility] 2022-08-22 00:00:00 2022-08-22 00:00:00 (TEL) STLMLC STLMLC [id number] [facility] 2022-07-18 00:00:00 2022-07-18 00:00:00 OFFICE VISIT ESTAB PT LEVEL 3 STLMLC STLMLC [id number] [facility] 2022-07-02 00:00:00 2022-07-02 00:00:00 OFFICE VISIT ESTAB PT LEVEL 4 STLMLC STLMLC [id number] [facility] 2022-07-02 00:00:00 2022-07-02 00:00:00 Patient Secure Msg [place] [place] 1.2.840.114 350.1.13.10 4.2.7.2.686 [id number] [facility] 2022-06-19 16:00:00 2022-06-19 16:15:00 Manufacturing Weaver Visit Lab, Ang - Db Ramana [facility] [place] 1.2.840.114 350.1.13.10 4.2.7.2.686 [id number] [facility] 2022-06-19 15:30:00 2022-06-19 15:49:21 [facility] [id number] [facility] 2022-06-19 15:30:00 2022-06-19 15:49:21 Office Visit [facility]ana [facility] [place] 1..840.114 350.1.13.10 4.2.7.2.686 [id number] [facility] 2022-06-19 15:30:00 2022-06-19 15:30:00 Outpatient R RAMANA [facility] [id number] [facility] 2022-06-19 00:00:00 2022-06-19 00:00:00 Orders Only Doctor Unassigned, [place] [facility] 1..840.114 350.1.13.10 4.2.7.2.686 [id number] [facility] 2022-06-17 00:00:00 2022-06-17 00:00:00 Refill [facility]ana [facility] [place] 1..840.114 350.1.13.10 4.2.7.2.686 [id number] [facility] 2022-06-14 00:00:00 2022-06-14 00:00:00 OFFICE VISIT ESTAB PT LEVEL 5 STLMLC STLMLC [id number] [facility] 2022-05-24 00:00:00 2022-05-24 00:00:00 OFFICE VISIT NEW PT LEVEL 3 STLMLC STLMLC [id number] [facility] 2022-05-20 00:00:00 2022-05-20 00:00:00 Refill Ramana [facility] [place] 1.2.840.114 350.1.13.10 4.2.7.2.686 [id number] [facility] 2022-05-17 00:00:00 2022-05-17 00:00:00 OFFICE VISIT ESTAB PT LEVEL 4 STLMLC STLMLC [id number] [facility] 2022-05-12 14:29:00 2022-05-12 20:07:00 Emergency [facility] [id number] [facility] 2022-05-01 00:00:00 2022-05-01 00:00:00 OFFICE VISIT EST PT LEVEL 3 STLMLC STLMLC [id number] [facility] 2022-04-10 00:00:00 2022-04-10 00:00:00 OFFICE VISIT EST PT LEVEL 3 STLMLC STLMLC [id number] [facility] 2022-04-03 00:00:00 2022-04-03 00:00:00 Refill Boles [facility] 1.2.840.114 350.1.13.10 4.2.7.2.686 [id number] [facility] 2022-03-09 00:00:00 2022-03-09 00:00:00 OFFICE VISIT ESTAB PT LEVEL 4 STLMLC STLMLC [id number] [facility] 2022-02-22 00:00:00 2022-02-22 00:00:00 (TEL) STLMLC STLMLC [id number] [facility] 2022-02-18 00:00:00 2022-02-18 00:00:00 Refill [facility]ana [facility] [place] 1.840.114 350.1.13.10 4.2.7.2.686 [id number] [facility] 2022-02-14 00:00:00 2022-02-14 00:00:00 OFFICE VISIT EST PT LEVEL 3 STLMLC STLMLC [id number] [facility] 2022-01-04 00:00:00 2022-01-04 00:00:00 Telephone [facility]ana [facility] 1.0.114 350.1.13.10 4.2.7.2.686 [id number] [facility] 2022-01-02 09:49:54 2022-01-02 23:59:00 Outpatient R RAMANA [facility] [id number] [facility] 2022-01-02 09:49:54 2022-01-02 23:59:00 Hospital Encounter Ramana [facility] 1..114 350.1.13.10 4.2.7.2.686 [id number] [facility] 2022-01-02 00:00:00 2022-01-02 00:00:00 Orders Only Doctor Unassigned, [place] [facility] 1.840.114 350.1.13.10 4.2.7.2.686 [id number] [facility] 2021-12-12 15:00:00 2021-12-12 15:56:53 Outpatient R RAMANA [facility] [id number] [facility] 2021-12-12 15:00:00 2021-12-12 15:15:00 Manufacturing Weaver Visit Lab, [facility] 1.840.114 350.1.13.10 4.2.7.2.686 [id number] [facility] 2021-12-12 14:30:00 2021-12-12 14:51:05 Outpatient R RAMANA [facility] [id number] [facility] 2021-12-12 14:30:00 2021-12-12 14:51:05 Office Visit Ramana [facility]ILD[facility] 1.840.114 350.1.13.10 4.2.7.2.686 [id number] [facility] 2021-11-24 00:00:00 2021-11-24 00:00:00 OFFICE VISIT ESTAB PT LEVEL 4 STLMLC STLMLC [id number] [facility] 2021-11-19 00:00:00 2021-11-19 00:00:00 Refill Ramana [facility] 1.840.114 350.1.13.10 4.2.7.2.686 [id number] [facility] 2021-10-31 00:00:00 2021-10-31 00:00:00 (TEL) STLMLC STLMLC [id number] [facility] 2021-10-27 00:00:00 2021-10-27 00:00:00 OFFICE VISIT EST PT LEVEL 3 STLMLC STLMLC [id number] [facility] 2021-10-13 00:00:00 2021-10-13 00:00:00 Telephone [facility] 1.84.114 350.1.13.10 4.2.7.2.686 [id number] [facility] 2021-10-02 09:30:00 2021-10-02 09:45:00 Manufacturing Weaver Visit Lab, Ang - Db Ramana [facility] [place] 1.840.114 350.1.13.10 4.2.7.2.686 [id number] [facility] 2021-10-02 09:30:00 2021-10-02 09:30:00 Outpatient R RAMANA [facility] [id number] [facility] 2021-10-02 00:00:00 2021-10-02 00:00:00 Orders Only Doctor Unassigned, [place] [facility] 1.840.114 350.1.13.10 4.2.7.2.686 [id number] [facility] 2021-09-29 00:00:00 2021-09-29 00:00:00 OFFICE VISIT EST PT LEVEL 3 STLMLC STLMLC [id number] [facility] 2021-09-08 00:00:00 2021-09-08 00:00:00 Telephone [facility] [place] 1.840.114 350.1.13.10 4.2.7.2.686 [id number] [facility] 2021-09-08 00:00:00 2021-09-08 00:00:00 Telephone [facility]ana [facility] [place] 1..840.114 350.1.13.10 4.2.7.2.686 [id number] [facility] 2021-09-05 15:30:00 2021-09-05 16:21:36 Outpatient R [facility] [id number] [facility] 2021-09-05 15:30:00 2021-09-05 16:21:36 [place] Visit [facility] [place] 1..840.114 350.1.13.10 4.2.7.2.686 [id number] 220 [id number] [facility] 2021-09-04 00:00:00 2021-09-04 00:00:00 OFFICE VISIT ESTAB PT LEVEL 4 STLMLC STLMLC [id number] [facility] 2021-09-04 00:00:00 2021-09-04 00:00:00 Orders Only Doctor Unassigned, [place] [facility] 1.2840.114 350.1.13.10 [id number] [id number] [facility] 2021-08-25 00:00:00 2021-08-25 00:00:00 Orders Only Doctor Unassigned, [place] [facility] 1.840.114 350.1.13.10 4.2.7.2.686 [id number] [id number] [facility] 2021-08-24 00:00:00 2021-08-24 00:00:00 (TEL) STLMLC STLC [id number] [facility] 2021-08-18 00:00:00 2021-08-18 00:00:00 OFFICE VISIT ESTAB PT LEVEL 4 STLMLC STLMLC [id number] [facility] 2021-08-07 00:00:00 2021-08-07 00:00:00 OFFICE VISIT NEW PT LEVEL 4 STLMLC STLMLC [id number] [facility] 2021-03-09 14:57:54 2021-03-09 15:57:54 Nurse Visit Therapy, Adc Covid uJliano Dick [facility] 1.84.114 350.1.13.10 4.2.7.2.686 [id number] [facility] 2021-03-09 15:00:00 2021-03-09 15:00:00 Outpatient JULIANO VELAZCO [facility] [id number] [facility] 2021-03-09 00:00:00 2021-03-09 00:00:00 Orders Only Doctor Unassigned, [place] [facility] 1.840.114 350.1.13.10 4.2.7.2.686 [id number] 009 [id number] [facility] Results Test Description Test Time Test Comments Results Result Co mments Source Microalbumin/Creat Ratio, Random Ay6242-90-86 00:00:00* Test Item Value Reference Range Interpretation Comme nts Creatinine, Urine (test code = 2161-8) 73.6 mg/dL Not Estab. mg/dL Alb/Creat Ratio (test code = 28067-1) 901 mg/g creat See_Comment H [Automated messa ge] The system which generated this result transmitted reference range: 0-29 mg/g creat. The reference range was not used to interpret this result as normal/abnormal. Albumin, Urine (test code = 26722-2) 662.8 ug/mL Not Estab. ug/mL Hemoglobin C9u7504-21-52 00:00:00* Test Item Value Reference Range Interpretation Comme nts Hemoglobin A1c (test code = 4548-4) 7.2 % See_Comment H [Automated messa ge] The system which generated this result transmitted reference range: 4.8-5.6 %. The reference range was not used to interpret this result as normal/abnormal. Comp. Metabolic Panel (14) (CMP)2022-12-27 00:00:00* Test Item Value Reference Range Interpretation Comme nts A/G Ratio (test code = 1759-0) 1.2 1.2-2.2 Albumin (test code = 1751-7) 3.6 g/dL See_Comment L [Automated messa ge] The system which generated this result transmitted reference range: 3.8-4.9 g/dL. The reference range was not used to interpret this result as normal/abnormal. Alkaline Phosphatase (test code = 6768-6) 106 IU/L See_Comment [Automated message] The system which generated this result transmitted reference range: 44-121 IU/L. The reference range was not used to interpret this result as normal/abnormal. ALT (SGPT) (test code = 1742-6) 16 IU/L See_Comment [Automated messa ge] The system which generated this result transmitted reference range: 0-32 IU/L. The reference range was not used to interpret this result as normal/abnormal. AST (SGOT) (test code = 1920-8) 48 IU/L See_Comment H [Automated messa ge] The system which generated this result transmitted reference range: 0-40 IU/L. The reference range was not used to interpret this result as normal/abnormal. Bilirubin, Total (test code = 1975-2) 0.2 mg/dL See_Comment [Automated messa ge] The system which generated this result transmitted reference range: 0.0-1.2 mg/dL. The reference range was not used to interpret this result as normal/abnormal. BUN (test code = 3094-0) 10 mg/dL See_Comment [Automated messa ge] The system which generated this result transmitted reference range: 6-24 mg/dL. The reference range was not used to interpret this result as normal/abnormal. BUN/Creatinine Ratio (test code = 3097-3) 10 9-23 Calcium (test code = 33188-0) 8.5 mg/dL See_Comment L [Automated messa ge] The system which generated this result transmitted reference range: 8.7-10.2 mg/dL. The reference range was not used to interpret this result as normal/abnormal. Carbon Dioxide, Total (test code = 2027-9) 22 mmol/L See_Comment [Automated message] The system which generated this result transmitted reference range: 20-29 mmol/L. The reference range was not used to interpret this result as normal/abnormal. Chloride (test code = 5-0) 102 mmol/L See_Comment [Automated messa ge] The system which generated this result transmitted reference range: 96-106 mmol/L. The reference range was not used to interpret this result as normal/abnormal. Creatinine (test code = 2160-0) 1.05 mg/dL See_Comment H [Automated messa ge] The system which generated this result transmitted reference range: 0.57-1.00 mg/dL. The reference range was not used to interpret this result as normal/abnormal. Globulin, Total (test code = 66633-8) 2.9 g/dL See_Comment [Automated messa ge] The system which generated this result transmitted reference range: 1.5-4.5 g/dL. The reference range was not used to interpret this result as normal/abnormal. Glucose (test code = 2345-7) 172 mg/dL See_Comment H [Automated messa ge] The system which generated this result transmitted reference range: 70-99 mg/dL. The reference range was not used to interpret this result as normal/abnormal. Potassium (test code = 2823-3) 4.4 mmol/L See_Comment [Automated messa ge] The system which generated this result transmitted reference range: 3.5-5.2 mmol/L. The reference range was not used to interpret this result as normal/abnormal. Protein, Total (test code = 2885-2) 6.5 g/dL See_Comment [Automated messa ge] The system which generated this result transmitted reference range: 6.0-8.5 g/dL. The reference range was not used to interpret this result as normal/abnormal. Sodium (test code = 2951-2) 137 mmol/L See_Comment [Automated messa ge] The system which generated this result transmitted reference range: 134-144 mmol/L. The reference range was not used to interpret this result as normal/abnormal. BBK7823-92-87 00:00:00* Test Item Value Reference Range Interpretation Comme nts TSH (test code = 08416-7) 4.770 uIU/mL See_Comment H [Automated messa ge] The system which generated this result transmitted reference range: 0.450-4.500 uIU/mL. The reference range was not used to interpret this result as normal/abnormal. CBC With Differential/Omfczrlw8678-53-37 00:00:00* Test Item Value Reference Range Interpretation Comme nts Baso (Absolute) (test code = 704-7) 0.1 x10E3/uL See_Comment [Automated messa ge] The system which generated this result transmitted reference range: 0.0-0.2 x10E3/uL. The reference range was not used to interpret this result as normal/abnormal. Basos (test code = 706-2) 1 % Not Estab. % Eos (test code = 713-8) 5 % Not Estab. % Eos (Absolute) (test code = 711-2) 0.6 x10E3/uL See_Comment H [Automated messa ge] The system which generated this result transmitted reference range: 0.0-0.4 x10E3/uL. The reference range was not used to interpret this result as normal/abnormal. Hematocrit (test code = 4544-3) 37.8 % See_Comment [Automated messa ge] The system which generated this result transmitted reference range: 34.0-46.6 %. The reference range was not used to interpret this result as normal/abnormal. Hematology Comments: (test code = 31352-4) Hemoglobin (test code = 718-7) 12.0 g/dL See_Comment [Automated messa ge] The system which generated this result transmitted reference range: 11.1-15.9 g/dL. The reference range was not used to interpret this result as normal/abnormal. Immature Cells (test code = UNLOINC) Immature Grans (Abs) (test code = 86539-2) 0.1 x10E3/uL See_Comment [Automated message] The system which generated this result transmitted reference range: 0.0-0.1 x10E3/uL. The reference range was not used to interpret this result as normal/abnormal. Immature Granulocytes (test code = 71771-3) 1 % Not Estab. % Lymphs (test code = 736-9) 24 % Not Estab. % Lymphs (Absolute) (test code = 731-0) 2.9 x10E3/uL See_Comment [Automated m essage] The system which generated this result transmitted reference range: 0.7-3.1 x10E3/uL. The reference range was not used to interpret this result as normal/abnormal. MCH (test code = 785-6) 29.6 pg See_Comment [Automated messa ge] The system which generated this result transmitted reference range: 26.6-33.0 pg. The reference range was not used to interpret this result as normal/abnormal. MCHC (test code = 786-4) 31.7 g/dL See_Comment [Automated messa ge] The system which generated this result transmitted reference range: 31.5-35.7 g/dL. The reference range was not used to interpret this result as normal/abnormal. MCV (test code = 787-2) 93 fL See_Comment [Automated messa ge] The system which generated this result transmitted reference range: 79-97 fL. The reference range was not used to interpret this result as normal/abnormal. Monocytes (test code = 5905-5) 4 % Not Estab. % Monocytes(Absolute) (test code = 742-7) 0.4 x10E3/uL See_Comment [Automated m essage] The system which generated this result transmitted reference range: 0.1-0.9 x10E3/uL. The reference range was not used to interpret this result as normal/abnormal. Neutrophils (test code = 770-8) 65 % Not Estab. % Neutrophils (Absolute) (test code = 751-8) 8.1 x10E3/uL See_Comment H [Automated messa ge] The system which generated this result transmitted reference range: 1.4-7.0 x10E3/uL. The reference range was not used to interpret this result as normal/abnormal. NRBC (test code = 82584-6) Platelets (test code = 777-3) 263 x10E3/uL See_Comment [Automated messa ge] The system which generated this result transmitted reference range: 150-450 x10E3/uL. The reference range was not used to interpret this result as normal/abnormal. RBC (test code = 789-8) 4.05 x10E6/uL See_Comment [Automated messa ge] The system which generated this result transmitted reference range: 3.77-5.28 x10E6/uL. The reference range was not used to interpret this result as normal/abnormal. RDW (test code = 788-0) 14.9 % See_Comment [Automated messa ge] The system which generated this result transmitted reference range: 11.7-15.4 %. The reference range was not used to interpret this result as normal/abnormal. WBC (test code = 6690-2) 12.2 x10E3/uL See_Comment H [Automated messa ge] The system which generated this result transmitted reference range: 3.4-10.8 x10E3/uL. The reference range was not used to interpret this result as normal/abnormal. T4F+W3Ylci1910-38-02 00:00:00* Test Item Value Reference Range Interpretation Comme nts Free T-3 (test code = 3051-0) 2.4 pg/mL Free Thyroxine (test code = 3024-7) 0.90 ng/dL Thyroxine (T-4), Serum (test code = 3026-2) 11.4 ug/dL Triiodothyronine (T-3), Seru m (test code = 3053-6) 175 ng/dL H Notes Date/Time Note Provider Source 2023-09-27 10:15:00 i3+moHgq7j52CMW9E0SojHN1772A4IF39fb n+gjH+vpin4UFYaorOsPUa7DCe78x5390-5 0:15:00 Images from the original note were not included.Venipuncture collection performed by clean technique on the right anticubitus. Total of 1 attempts were made. Slight pressure and a bandage/dressing were applied to the site(s). The patient experienced no complications. The following specimens were processed according to instructions and sent to [facility] laboratories per lab order on 09/27/2023:LT BLUESST 1REDLAVPPTDK GREEN (LiHep)DK GREEN (SodH)GRAYDK BLUE (K2)DK BLUE (S)ACDBlood CultureNIPT/NTD 61716-8Vbevi IsxyQZ8202-40-34L81:13:37Nurse NoteTXT1.2.840.264786.1.13.104.2.7. 2.907142|[id number] for patient dchh94174-5Gzroi NoteLNNARRATIVEFormatted C-CDA narrative text[address] Vm[id number] 3ZLHNIXSIDYXTSNMFDLQXOD9458-39-63M0 0:13:371.2.840.852535.1.72.3.15|1.2 .840.224485.1.13.104.2.7.2.727879_2 [id number] [facility] 2023-07-09 11:32:38 C+mZHXVDfSmAA5TNlsAC4DlcXj67aRGrdNR 2wXlJobgdBAKw2qG0dBQ8LqL5MF1C6092-8 07-09T11:32:38 This was done on 07/03. Will resend. 86414-7Uirlmrebq encounter PnasJO6512-99-79K66:33:18Telephone encounter NoteTXT1.2.840.301679.1.13.104.2.7. 2.113684|[id number] for patient tuam47842-7SphiLSYUCZTRINPHkcgdtksx C-CDA narrative [id number] D Jetton [address] Vg[id number] 2XDNUVNPGBNBDGVHXISWLLA7552-92-06X0 1:33:181.2.840.420734.1.72.3.15|1.2 .840.910379.1.13.104.2.7.2.727879_2 [id number] Halina Buckley LVN [facility] 2023-07-03 09:15:00 o3m/FIOmsk2V53dT4BURsup7mdUWcFPb5x/ TsIMQkw5q0buitZqOV0XVHcgQl8iy4682-3 09:15:00 Images from the original note were not included.Venipuncture collection performed by clean technique on the right anticubitus. Total of 1 attempts were made. Slight pressure and a bandage/dressing were applied to the site(s). The patient experienced no complications. The following specimens were processed according to instructions and sent to [facility] laboratories per lab order on 07/03/2023:LT BLUESST 3REDLAVPPTDK GREEN (LiHep)DK GREEN (SodH)GRAYDK BLUE (K2)DK BLUE (S)ACDBlood CultureNIPT/NTD 92900-4Eqkvh AznySH3855-27-44K31:14:20Nurse NoteTXT1.2.840.155215.1.13.104.2.7. 2.557096|[id number] for patient nanz90435-3Mbfiy NoteLNNARRATIVEFormatted C-CDA narrative textUT[id number] 9COQHJEFCGRKAGFCBZGLETK2485-22-04W1 9:14:201.2.840.233069.1.72.3.15|1.2 .840.885673.1.13.104.2.7.2.727879_2 [id number] [facility] 2023-06-27 15:15:55 FQbLuNBp2WLPtTMqOZbv2NPp9KiIqmelYAk O+czyIedcwuZznYM+j76uA8c8V7KZ8230-7 5:15:55 LVM to assist with scheduling an appt in order to get medication refills 11748-5Kygekfyts encounter SfbcDC5811-79-01O47:16:27Telephone encounter NoteTXT1.2.840.445563.1.13.104.2.7. 2.958032|[id number] for patient drob13807-4YfwdGKIEPXPSMRSIgrknfros C-CDA narrative ouzs615477298Zsxvzdred L ZeiglerUT[id number] 9EPROFBTYVQMBVDRZZPKAAI3066-45-24L6 5:16:271.2.840.809025.1.72.3.15|1.2 .840.959994.1.13.104.2.7.2.727879_2 [id number] Barbara Elizabeth [facility] 2023-06-27 13:38:04 NqnwdfJOe1aVCGqlllX9bBfcoC0lWzLJibX TpOgNzbxZT7Ovlll9s/D5pTonv8Pv1869-7 3:38:04 Patient's last visit was more than one year ago. We can not restart/change medication without office visit per [facility] policy.In addition, she did not have hyperthyroid and will not need methimazole. She has hypothyroid. Will need to be seen in person.Please schedule sooner appointment with christiano. [facility] 37331-6Wokgswtlk encounter WgtpBN9461-56-02Z99:44:15Telephone encounter NoteTXT1.2.840.077146.1.13.104.2.7. 2.476523|[id number] for patient zcmf81435-2OnhgHJCFBRXAPYIGpurnjhdf C-CDA narrative textUT[address] Lj[id number] 5VBWETGZXVBEUEEUODGFXAZ4777-02-14V0 3:44:151.2.840.420354.1.72.3.15|1.2 .840.795411.1.13.104.2.7.2.727879_2 [id number] [facility] 2023-06-27 09:50:12 awyhRQVAFaV0x2DCaWY9lzzK3NzMsekQqEK owIKiVw6ei7j1afn1Szuy+OPR1iY35925-4 09:50:12 [facility] 06/19/22NOV 12/03/23 (next available)Please review outside organization visit dated 03/29/23 and advise. Patient asking to restart Methimazole based on recent lab work results.Per [facility] note:Will stop methimazole for nowWill obtain blood work today to decide future plan 70048-1Eujzbyvrq encounter HqxnOZ0894-42-41F97:02:37Telephone encounter NoteTXT1.2.840.227021.1.13.104.2.7. 2.738399|[id number] for patient ppmi67817-6PhgtUZYBNEGDWUPXxvfftifx C-CDA narrative [id number] Guillaume Buckley [id number] 7ADFZQOIWIGFCSYWIZICYDV0921-99-64D5 0:02:371.2.840.677482.1.72.3.15|1.2 .840.235468.1.13.104.2.7.2.727879_2 [id number] Ananader Guillaume Marcio [facility] 2023-06-27 09:17:57 2M1ulnKLPS6BAvgG8wVTTQ2ydABM00NMf3I Kqt4/DzPIZwBdQlF6DSk5XjEjtji28342-2 06-27T09:17:57 Abena Pinon is a 52 year old femalePt is calling for a refill of the methIMAzole 10 mg tablet because lab work show her thyroid not with in levels.Please adviseCV[id number] - [place], [place] - [address] [facility] [id number] [facility] [address] [address]Xgxnx: [phone] Gnaofhfbklitek signed by Kirti Valente at 06/27/2023 9:20 AM XIL28981-7Ailhaprjv encounter QdoaUP4374-37-78F97:20:24Telephone encounter NoteTXT1.2.840.099342.1.13.104.2.7. 2.005965|[id number] for patient deqm99189-1DncrMNZJVRVEUIFUdfrcnnjj C-CDA narrative text[id number] 7VYOKKUOYNWCFCBDSPQMBRY9394-42-88W0 9:20:241.2.840.637581.1.72.3.15|1.2 .840.909235.1.13.104.2.7.2.727879_2 [id number] [facility] 2023-02-21 12:58:48 0DlC0oiDx/3nIRK/Vy9d3T76SINjW8qK0qy 9i3NlGO7aEMB09xNTYv1it4AfJHz89249-9 02-21T12:58:48 MARLIN 06/19/22NOV 04/30/23Patient was supposed to get repeat lab work in July but did not get it done. Let patient know orders are still in system and she will need to have them done before medication can be refilled. Patient will come to clinic and have drawn as soon as she can so provider can review and advise on methimazole dose. 43765-6Olugpfnaq encounter RstjTM2619-70-57A57:10:02Telephone encounter NoteTXT1.2.840.914144.1.13.104.2.7. 2.785755|[id number] for patient hxbg61043-8NyyuSR716312263Xucb D Jetton [id number] 1WYRORFLNAQJQCHADQYQAGK6371-90-03P3 3:10:021.2.840.725992.1.72.3.15|1.2 .840.538632.1.13.104.2.7.2.727879_1 [id number] Halina Buckley LVN [facility] 2023-02-21 12:44:17 tNga85uK28gK90ib6pwDMG9aK/KPa+xJd3O neN1jRRwO9FNHA8ic8m/kJ/Zo1Kxs3204-8 2:44:17 Patient requesting refill on her methIMAzole 10 mg tablet 95811-1Txqntvrlc encounter MaewYE8767-90-24T36:45:50Telephone encounter NoteTXT1.2.840.260495.1.13.104.2.7. 2.007799|[id number] for patient bfjl25874-4VwneZPAAPXMFHP[address] Ae[id number] 7MGDVCURNWENGBWHPKQZKQS2831-35-44O3 2:45:501.2.840.760942.1.72.3.15|1.2 .840.451784.1.13.104.2.7.2.727879_1 [id number] [facility]"
[2023-10-06 19:13] LABS: Absolute Eosinophils 0.3 K/uL (0-0.5); Absolute Lymphocytes (CBC) 1.6 K/uL (0.7-4.9); Absolute Monocytes 0.5 K/uL (0.1-1.3); Absolute Neutrophil 7.1 K/uL (1.8-8.0); Basophils % 0.4 % (0-1.3); Eosinophils % 3.1 % (0-4.4); Hematocrit 40.9 % (36.0-45.0); Hemoglobin 13.8 g/dL (12.0-15.0); Lymphocytes % 16.7 % (15.3-44.8); MCH 30.4 pg (27.0-35.0); MCHC 33.8 g/dL (32.0-36.0); MCV 89.9 fL (80-100); MPV 8.2 fL (7.6-11.3); Monocytes % 4.8 % (3.3-12.3); Nucleated Red Blood Cells % 0.4 % (0-0); Platelets 286 thou/uL (152-406); RBC Red Blood Cell Count 4.55 M/uL (3.86-4.86); Red Cell Distribution Width 17.1 % (12.1-15.2)
[2023-10-06 19:19] LABS: PT Prothrombin Time 13.4 SECONDS (9.5-12.5); Protime INR 1.23
[2023-10-06 19:27] LABS: Albumin 3.3 g/dL (3.4-5.0); Albumin/Globulin Ratio 0.8 (1.1-1.8); Bilirubin Direct 0.3 mg/dL (0-0.2); Bilirubin Indirect, Calculated 0.7 mg/dL (0.2-0.8); Globulin 4.2 g/dL (2.3-3.5); Magnesium 1.7 mg/dL (1.6-2.4); Protein, Total 7.5 g/dL (6.4-8.2)
[2023-10-06 19:29] LABS: Troponin High Sensitivity 63.4 pg/mL (<58.9)
[2023-10-06] MEDS ORDERED: DIPHENHYDRAMINE 50 MG/ML VIAL ONE (19:37)
[2023-10-06] MEDS ORDERED: FAMOTIDINE 20 MG/2 ML VIAL IV ONE (19:38)
[2023-10-06] MEDS ORDERED: NA CHLORIDE 0.9% 1,000 ML ONE ×2 (19:38→20:08)
[2023-10-06] MEDS ORDERED: ONDANSETRON 4 MG/2 ML VIAL ONE (19:47)
--- NOTE | 2023-10-06 20:57 | RAD REPORT ---
EXAM DESCRIPTION: CT - Abdomen Pelvis Wo Contrast - 10/06/2023 8:41 pm CLINICAL HISTORY: Abdominal pain vomiting and diarrhea COMPARISON: 2022 TECHNIQUE: Computed axial tomography of the abdomen and pelvis was obtained. IV and oral contrast we re not requested. All CT scans are performed using dose optimization technique as appropriate and may include automated exposure control or mA/KV adjustment according to patient size. FINDINGS: The evaluation of solid organs, vessels and bowel is limited secondary to the lack of con trast administration. The liver, spleen, pancreas, adrenals and right kidney appear grossly normal. Left ureteral stent in place. Mild left hydronephrosis unchanged. Mild stranding adjacent to the left kidney. Soft tissue renal pelvis without significant change. Left kidney is mildly diminished in siz e Periaortic lymph nodes have increased size measuring up to 16 millimeter short axis. The appendix is normal. There is no evidence of diverticulitis. IMPRESSION: Mild left hydronephrosis and soft tissue left renal pelvis is unchanged unchanged Mild to moderate enlargement of several periaortic lymph nodes
--- NOTE | 2023-10-06 20:58 | RAD REPORT ---
EXAM DESCRIPTION: Keke Single View10/06/2023 7:15 pm CLINICAL HISTORY: Chest pain COMPARISON: September 25, 2023 FINDINGS: The lungs appear clear of acute infiltrate. The heart is normal size Central venous catheter in place IMPRESSION: No acute abnormalities displayed
[2023-10-06 21:17] LABS: Band Neutrophils 7 % (0-1); Differential Total Cells Count 100; Eosinophils 1 % (0-3); Lymphocytes 16 % (15-42); Monocytes 3 % (0-10); Segmented Neutrophils 73 % (40-80)
[2023-10-06 21:18] LABS: Blood Morphology Comment NOTED (NOT SEEN); Hypochromasia 2+; Platelet Estimate ADEQ; Polychromasia 1+
[2023-10-06] MEDS ORDERED: METHYLPREDNISOLONE 125 MG INJ ONE (21:20)
--- NOTE | 2023-10-06 21:37 | P.HP ---
Certification for Inpatient Patient admitted to: Observation With expected LOS: <2 Midnights Patient will require the following post-hospital care: None Practitioner: I am a practitioner with admitting privileges, knowledge of patient current condition, hospital course, and medical plan of care. Services: Services provided to patient in accordance with Admission requirements found in Title 42 Section 412.3 of the Code of Federal Regulations Patient History Date of Service: 10/06/23 Reason for admission: Recurrent nausea vomiting History of Present Illness: 53-year-old female with past medical history of HTN/DM/metastatic bladder and left uterine cancer with chronic left hydronephrosis, on chemotherapy follows with Dr. Berry; status post chemotherapy 1 week ago; developed nausea and vomiting 1 day after the last chemo since the last 3 days with intermittent symptoms and persistent since then. She has also been having diarrhea. She developed this new rash over abdominal wall, associated with itching. She denies any fever or chills. She is still voiding well and denies any dysuria. She presented to the hospital today because of persistent vomiting. On arrival in the ED vital signs were stable, laboratory workup showed WBC of 9.5 with no differentials but 7% bandemia, creatinine elevated at 1.84, potassium 3.0, lactic acid elevated at 3.2. Chest x-ray shows no acute infiltrate. CT of the abdomen and pelvis shows left hydronephrosis but no acute intra-abdominal pathology She has been admitted for presumed sepsis with chemo induced toxicity with acute kidney injury and allergic skin rash Allergies citalopram Allergy (Unknown, Verified 09/25/23 10:10) Nausea/Vomiting sertraline Allergy (Unknown, Verified 09/25/23 10:10) Nausea/Vomiting Home Medications: Amlodipine Besylate 10 mg PO DAILY 09/25/23 Fenofibrate [Tricor] 145 mg PO DAILY 09/25/23 Levothyroxine Sodium 25 mcg PO DAILY 09/25/23 Lisinopril [Zestril] 40 mg PO DAILY 09/25/23 OLANZapine [Zyprexa Zydis] 5 mg PO DAILY 09/25/23 Rosuvastatin Calcium 20 mg PO DAILY 09/25/23 buPROPion HCL [Bupropion Xl] 150 mg PO DAILY 09/25/23 glipiZIDE [Glipizide] 10 mg PO BID 09/25/23 - Past Medical/Surgical History -: diabetes -: hypertension -: depression -: Port-a-cath -: Bladder biopsy Psychosocial/ Personal History: Patient is . - Family History Mother -: Diabetes - Social History Smoking Status: Never smoker Smoking therapy provided: No Patient receptive to therapy: No Alcohol use: No CD- Drugs: No Caffeine use: Yes Place of Residence: Home Review of Systems 10-point ROS is otherwise unremarkable Physical Examination - Physical Exam General: Alert, In no apparent distress, Oriented x3, Cooperative HEENT: Atraumatic, Normocephalic, PERRLA Neck: Supple, 2+ carotid pulse no bruit, JVD not distended Respiratory: Clear to auscultation bilaterally, Normal air movement Cardiovascular: Normal pulses, Regular rate/rhythm, Normal S1 S2 Capillary refill: <2 Seconds Gastrointestinal: Normal bowel sounds, Soft and benign, Non-distended, No ascites, Other Integumentary: Rash(es) (Erythematous discoid rash over anterior abdominal wall) Neurological: Normal gait, Normal strength at 5/5 x4 extr, Sensation intact, Cranial nerves 3-12 intact - Studies Laboratory Data (last 24 hrs) 10/06/23 10/06/23 10/06/23 18:50 18:50 18:50 WBC 9.50 Hgb 13.8 Hct 40.9 Plt Count 286 PT 13.4 H INR 1.23 Sodium 135 L Potassium 3.0 L BUN 5 L Creatinine 1.84 H Glucose 200 H Magnesium 1.7 Total Bilirubin 1.0 AST 49 H ALT 18 Alkaline Phosphatase 94 Assessment and Plan - Problems (Diagnosis) (1) Chemotherapy induced nausea and vomiting Current Visit: Yes Status: Acute (2) Chemotherapy induced diarrhea Current Visit: Yes Status: Acute (3) Chemotherapy-induced enteritis Current Visit: Yes Status: Acute (4) ZANDER (acute kidney injury) Current Visit: No Status: Acute (5) Hyperglycemia Current Visit: No Status: Acute (6) Ureteral mass Current Visit: No Status: Acute (7) Bladder cancer Current Visit: No Status: Chronic Qualifiers: (8) Hypertension Current Visit: No Status: Chronic Qualifiers: - Plan Impression Chemo induced gastroenteritis Abdominal skin rash Hypokalemia Acute kidney injury Metastatic uterine and bladder cancer Acute sepsisunclear etiology DM Hypertension Hypothyroidism Troponin elevationmildlikely demand mediated Plan Will admit patient to observation Start antiemetics as tolerated Gentle IV fluid with lactated Ringer's plus KCl Insulin sliding scale with Accu-Cheks Resume oral regimen Will consult oncology Dr. Berry Obtain name of chemo and see if possible likely causing abdominal skin rash IV Benadryl as needed itching Start empirical antibiotics with Flagyl for sepsis/elevated lactic acid as well as gastroenteritis Replace potassium Monitor creatinine trend with IV fluid Persistent left hydro, continue to monitor Nephrology to follow in a.m. if still persistent no improvement creatinine elevation Mild troponin elevation, follow trend Subcutaneous Lovenox for DVT prophylaxis Full code - Advance Directives Does patient have a Living Will: No Does patient have a Durable POA for Healthcare: No - Code Status/Comfort Care Code Status: Full Code Physician Review: Patient Assessed, Agree with Above Assessment and Plan Time Spent Managing Pts Care (In Minutes): 65
[2023-10-06] MEDS ORDERED: MELATONIN 5 MG TABLET PO PRN (21:39)
[2023-10-06] MEDS ORDERED: ACETAMINOPHEN 325 MG TABLET PO PRN (21:39)
[2023-10-06] MEDS ORDERED: HYDRALAZINE HCL 20 MG/ML VIAL IV PRN (21:39)
[2023-10-06] MEDS ORDERED: ALBUTEROL 2.5 MG/3 ML NEB SOL NEB PRN (21:41)
--- NOTE | 2023-10-06 21:44 | ER ---
[facility]urse's Notes [facility] Name: Debbi Pinon Age: 53 yrs Sex: Female : 1970 Arrival Date: 10/06/2023 Time: 18:11 Bed 5 Private MD: Diagnosis: Nausea with vomiting, unspecified;Diarrhea, unspecified;Allergy status to unspecified drugs, medicaments and biological substances status Presentation: 10/05 18:25 Chief complaint: Patient states: Vomiting and diarrhea since Saturday. Itching all over. nj1 Had second round of new chemo this and has been itching since. 18:25 Coronavirus screen: Vaccine status: Patient reports receiving the 2nd dose of the covid nj1 vaccine. Ebola Screen: Patient denies travel to an Ebola-affected area in the 21 days before illness onset. Initial Sepsis Screen: Does the patient meet any 2 criteria? No. Patient's initial sepsis screen is negative. Does the patient have a suspected source of infection? No. Patient's initial sepsis screen is negative. Risk Assessment: Do you want to hurt yourself or someone else? Patient reports no desire to harm self or others. Onset of symptoms was October 04, 2023. 18:25 Method Of Arrival: Ambulatory [facility] 18:25 Acuity: KELVIN 3 nj1 Historical: - Allergies: 18:37 citalopram; nj1 18:37 sertraline; nj1 - PMHx: 18:37 Bladder cancer; depressive disorder; Hypertensive disorder; nj1 - Immunization history:: Client reports receiving the 2nd dose of the Covid vaccine. - Infectious Disease History:: Denies. - Social history:: Smoking status: Patient denies any tobacco usage or history of. Screenin:59 [facility] ED Fall Risk Assessment (Adult) History of falling in the last 3 months, ko1 including since admission No falls in past 3 months (0 pts) Confusion or Disorientation No (0 pts) Intoxicated or Sedated No (0 pts) Impaired Gait No (0 pts) Mobility Assist Device Used No (0 pt) Altered Elimination No (0 pt) Score/Fall Risk Level 0 - 2 = Low Risk Oriented to surroundings, Maintained a safe environment, Educated pt \T\ family on fall prevention, incl call for assistance when getting out of bed, Assessed \T\ reinforced patient's understanding of fall precautions, Provided non-skid footwear, Hourly rounding (assess needs \T\ fall precautionary measures) done, Used ambulatory aids as needed (educated on \T\ assisted with), Used gait belt as appropriate. Abuse screen: Denies threats or abuse. Denies injuries from another. Nutritional screening: No deficits noted. Tuberculosis screening: No symptoms or risk factors identified. Assessment: 18:59 General: Appears in no apparent distress. uncomfortable, Behavior is calm, cooperative, ko1 appropriate for age. Pain: Denies pain. Neuro: No deficits noted. Cardiovascular: No deficits noted. Respiratory: No deficits noted. GI: Abdomen is non-distended, obese. : No deficits noted. EENT: No deficits noted. Derm: No deficits noted. Musculoskeletal: No deficits noted. 19:10 General: Appears in no apparent distress. uncomfortable, Behavior is calm, cooperative, jw7 appropriate for age. Pain: Denies pain. Neuro: Level of Consciousness is awake, alert, obeys commands, Oriented to person, place, time, situation, Appropriate for age. Cardiovascular: Heart tones S1 S2 present Capillary refill < 3 seconds Clubbing of nail beds is absent JVD is absent Patient's skin is warm and dry. Respiratory: Airway is patent Trachea midline Respiratory effort is even, unlabored, Respiratory pattern is regular, symmetrical, Breath sounds are clear bilaterally. GI: Abdomen is round non-distended, obese, Bowel sounds present X 4 quads. Reports diarrhea, nausea, vomiting. : No deficits noted. No signs and/or symptoms were reported regarding the genitourinary system. EENT: No deficits noted. No signs and/or symptoms were reported regarding the EENT system. Derm: Skin is healthy with good turgor, Skin is dry, Skin is pink, red, Skin temperature is warm Rash noted that is itchy, red, on chest and abdomen Skin tear noted to left breast, medial. Musculoskeletal: Circulation, motion, and sensation intact. Range of motion: intact in all extremities. 20:24 Reassessment: Patient appears in no apparent distress at this time. No changes from jw7 previously documented assessment. Patient and/or family updated on plan of care and expected duration. Pain level reassessed. Patient is alert, oriented x 3, equal unlabored respirations, skin warm/dry/pink. 21:32 Reassessment: Patient appears in no apparent distress at this time. No changes from [facility] previously documented assessment. Patient and/or family updated on plan of care and expected duration. Pain level reassessed. Patient is alert, oriented x 3, equal unlabored respirations, skin warm/dry/pink. 22:30 Reassessment: Patient appears in no apparent distress at this time. No changes from [facility] previously documented assessment. Patient and/or family updated on plan of care and expected duration. Pain level reassessed. Patient is alert, oriented x 3, equal unlabored respirations, skin warm/dry/pink. 10/06 00:30 Reassessment: Patient appears in no apparent distress at this time. Patient and/or jw7 family updated on plan of care and expected duration. Pain level reassessed. Patient is alert, oriented x 3, equal unlabored respirations, skin warm/dry/pink. Patient states feeling better. Vital Signs: 10/05 18:25 BP 135 / 81; Pulse 47; Resp 18; Temp 99.8(O); Pulse Ox 100% on R/A; Weight 94.35 kg; nj1 Height 5 ft. 3 in. ; Pain 0/10; 18:59 BP 107 / 72; Pulse 108; Resp 18; Pulse Ox 97% on R/A; ko1 19:25 BP 128 / 109; Pulse 109; Resp 12 S; Pulse Ox 98% on R/A; jw7 20:00 BP 91 / 68; Pulse 102; Resp 18 S; Pulse Ox 100% on R/A; jw7 21:25 BP 101 / 47; Pulse 99; Resp 18 S; Pulse Ox 97% on R/A; jw7 22:11 BP 104 / 60; Pulse 100; Resp 20 S; Pulse Ox 99% on R/A; jw7 23:00 BP 110 / 65; Pulse 99; Resp 19 S; Pulse Ox 98% on R/A; jw7 10/06 00:00 BP 103 / 62; Pulse 98; Resp 19 S; Pulse Ox 97% on R/A; jw7 10/05 18:25 Body Mass Index 36.85 (94.35 kg, 160.02 cm) [facility] 10/05 18:25 Pain Scale: Adult [facility] ED Course: 10/05 18:16 Patient arrived in ED. mg5 18:24 Juan Prieto PA is PHCP. cp 18:24 Celia Mahoney MD is Attending Physician. cp 18:35 Lida Mir, RN is Primary Nurse. ko1 18:37 Triage completed. nj1 18:38 Arm band placed on. nj1 18:45 Inserted saline lock: 20 gauge in right antecubital area, using aseptic technique. ko1 Blood collected. 18:50 Initial lab(s) drawn, by co, sent to lab. First set of blood cultures drawn by me, ko1 Second set of blood cultures drawn by me. 18:58 Lactate w/ 2H reflex if indic. Sent. ko1 18:58 Blood Culture Adult (2) Sent. ko1 18:58 Basic Metabolic Panel Sent. ko1 18:58 CBC with Diff Sent. ko1 18:58 LFT's Sent. ko1 18:58 Magnesium Sent. ko1 18:58 NT PRO-BNP Sent. ko1 18:59 Patient has correct armband on for positive identification. Allergy band placed. Placed ko1 in gown. Bed in low position. Call light in reach. Client placed on continuous cardiac and pulse oximetry monitoring. NIBP monitoring applied. cardiac monitor technician on. Door closed. Noise minimized. Lights dimmed. Warm blanket given. 18:59 PT-INR Sent. ko1 18:59 Troponin HS Sent. ko1 19:00 Report received from CJ Hilton. jw7 19:10 Provided Education on: Use of Call Light. jw7 19:17 XRAY Chest (1 view) In Process Unspecified. EDMS 19:22 EKG done, by ED staff, reviewed by Juan GEORGES. jw7 19:29 Notified ED physician of a critical lab result(s). Lactate 3.2 and Troponin 63.4. jw7 20:43 CT Abd/Pelvis - Without Contrast In Process Unspecified. EDMS 21:23 Primary Nurse role handed off by Lida Mir, RN as6 21:42 Herb Canada MD is Hospitalizing Provider. cp 22:11 No provider procedures requiring assistance completed. jw7 22:37 Notified ED physician of a critical lab result(s). Lactate 3.7. jw7 23:54 Patient admitted, IV remains in place. cm10 Administered Medications: 19:40 Drug: diphenhydrAMINE IVP 50 mg IVP once Route: IVP; Site: right antecubital; 7 10/06 01:17 Follow up: Response: No adverse reaction; Marked relief of symptoms; Other 7 10/05 19:40 Drug: Famotidine IVP 20 mg IVP once; dilute with 10 mL 0.9% NaCl; give over 2 minutes jw7 Route: IVP; Site: right antecubital; 10/06 01:17 Follow up: Response: No adverse reaction; Marked relief of symptoms 7 10/05 19:40 Drug: NS 0.9% IV 1000 ml IV at 1 bolus Per protocol; 1000 mL bolus Route: IV; Rate: 1 jw7 bolus; Site: right antecubital; 10/06 00:30 Follow up: Response: No adverse reaction; IV Status: Completed infusion; IV Intake: jw7 1000ml 10/05 19:50 Drug: Ondansetron IVP 4 mg IVP once; over 2 minutes Route: IVP; Site: right antecubital;7 10/06 01:16 Follow up: Response: No adverse reaction; Marked relief of symptoms; Nausea is decreasedjw7 10/05 20:10 Drug: NS 0.9% IV 1000 ml IV at 1 bolus Per protocol; 1000 mL bolus Route: IV; Rate: 1 jw7 bolus; Site: right antecubital; 10/06 01:16 Follow up: Response: No adverse reaction; IV Status: Completed infusion; IV Intake: jw7 1000ml 10/05 21:15 Not Given (Physician Discretion): [id number] mg IVP once cp 21:24 Drug: MethylPrednisoLONE IVP 125 mg IVP once Route: IVP; Site: right antecubital; 10/06 01:16 Follow up: Response: No adverse reaction 10/05 23:33 Drug: Aspirin PO Chewable Tablet 324 mg PO once; 81 mg tablets x 4 Route: PO; 10/06 01:16 Follow up: Response: No adverse reaction 10/05 23:33 Drug: Potassium PO Effervescent Tablet 50 mEq PO once; dissolve in 4 ounces of water or jw7 juice Route: PO; 10/06 01:15 Follow up: Response: No adverse reaction jw7 Medication: 10/05 22:11 VIS not applicable for this client. jw7 Intake: 10/06 00:30 IV: 1000ml; Total: 1000ml. jw7 01:16 IV: 1000ml; Total: 2000ml. jw7 Outcome: 10/05 21:43 Decision to Hospitalize by Provider. cp 23:53 Admitted to Tele accompanied by jet sarmiento, dhaval 23:53 Condition: good 23:53 Instructed on the need for admit, 23:54 Patient left the ED. cm10 Signatures: Dispatcher [employer] EDMS Juan Prieto PA PA cp Slawson, Ashby, RN RN as6 Mikki Berg RN RN jw7 Lida Mir, RN RN ko1 Melani Bhakta RN RN nj1 Brenda Jernigan RN RN cm10 Leslie Dai mg5 Corrections: (The following items were deleted from the chart) 23:12 19:45 Notified ED physician of a critical lab result(s). Lactate 3.2 and Troponin 64.2 jw7 jw7 10/06 01:23 01:22 Notified ED physician of a critical lab result(s). Lactate 3.7 jw7 jw7
--- NOTE | 2023-10-06 21:44 | EDPHYS ---
Physician Documentation [facility] Name: Debbi Pinon Age: 53 yrs Sex: Female : 1970 Arrival Date: 10/06/2023 Time: 18:11 Bed 5 Private MD: ED Physician Celia Mahoney HPI: 10/05 18:45 This 53 yrs old Female presents to ER via Ambulatory with complaints of cp Vomiting/Diarrhea. 18:45 The patient presents to the emergency department with vomiting, that is intermittent, cp described as bilious, diarrhea, that is continuous. 18:45 Onset: The symptoms/episode began/occurred 2 day(s) ago. cp 18:45 Possible causes: unknown. Associated signs and symptoms: Pertinent positives: cp erythematous rash to abdomen, Pertinent negatives: fever, GI bleeding. Severity of symptoms: in the emergency department the symptoms are unchanged despite home interventions. Patient reports oncologist is DR Berry. Received second dose of new chemo medication this past prior to onset of rash. Patient unsure of name of chemo drug. Historical: - Allergies: 18:37 citalopram; nj1 18:37 sertraline; nj1 - PMHx: 18:37 Bladder cancer; depressive disorder; Hypertensive disorder; nj1 - Immunization history:: Client reports receiving the 2nd dose of the Covid vaccine. - Infectious Disease History:: Denies. - Social history:: Smoking status: Patient denies any tobacco usage or history of. ROS: 18:50 Constitutional: Positive for poor PO intake, Negative for fever, cp 18:50 Eyes: Negative for injury, pain, redness, and discharge, cp 18:50 ENT: Negative for drainage from ear(s), ear pain, sore throat, difficulty swallowing, difficulty handling secretions, 18:50 Cardiovascular: Negative for chest pain, edema, palpitations, 18:50 Respiratory: Negative for cough, shortness of breath, wheezing, 18:50 Abdomen/GI: Positive for nausea, vomiting, diarrhea, anorexia, Negative for abdominal pain, constipation, black/tarry stool, rectal bleeding, 18:50 Skin: Positive for rash, of the abdomen, 18:50 Neuro: Negative for dizziness, headache, syncope, weakness, 18:50 All other systems are negative, Exam: 18:40 Constitutional: The patient appears in no acute distress, alert, awake, cp non-diaphoretic, non-toxic, well developed, well nourished, obese, 18:40 Head/Face: Normocephalic, atraumatic. cp 18:40 Eyes: Periorbital structures: appear normal, Conjunctiva: normal, no exudate, no injection, Sclera: no appreciated abnormality, Lids and lashes: appear normal, bilaterally, 18:40 ENT: External ear(s): are unremarkable, Nose: is normal, Mouth: Lips: moist, Oral mucosa: pink and intact, moist, Posterior pharynx: Airway: no evidence of obstruction, patent, 18:40 Neck: ROM/movement: is normal, is supple, without pain, no range of motions limitations, no meningismus, no nuchal rigidity, 18:40 Chest/axilla: Inspection: rash, that is moderate, Palpation: crepitus, is not appreciated, tenderness, is not appreciated, 18:40 Cardiovascular: Rate: bradycardic, Rhythm: regular, Edema: is not appreciated, JVD: is not appreciated, 18:40 Respiratory: the patient does not display signs of respiratory distress, Respirations: normal, no use of accessory muscles, no retractions, labored breathing, is not present, Breath sounds: are clear throughout, no decreased breath sounds, no stridor, no wheezing, 18:40 Abdomen/GI: Inspection: erythematous rash, Bowel sounds: active, all quadrants, cp Palpation: abdomen is soft and non-tender, in all quadrants, 18:40 Back: CVA tenderness, is absent, 18:40 Neuro: Orientation: to person, place \T\ time. Mentation: is normal, Motor: moves all fours, strength is normal, Sensation: is normal, Vital Signs: 18:25 BP 135 / 81; Pulse 47; Resp 18; Temp 99.8(O); Pulse Ox 100% on R/A; Weight 94.35 kg; nj1 Height 5 ft. 3 in. ; Pain 0/10; 18:59 BP 107 / 72; Pulse 108; Resp 18; Pulse Ox 97% on R/A; ko1 19:25 BP 128 / 109; Pulse 109; Resp 12 S; Pulse Ox 98% on R/A; jw7 20:00 BP 91 / 68; Pulse 102; Resp 18 S; Pulse Ox 100% on R/A; jw7 21:25 BP 101 / 47; Pulse 99; Resp 18 S; Pulse Ox 97% on R/A; jw7 22:11 BP 104 / 60; Pulse 100; Resp 20 S; Pulse Ox 99% on R/A; jw7 23:00 BP 110 / 65; Pulse 99; Resp 19 S; Pulse Ox 98% on R/A; 7 10/06 00:00 BP 103 / 62; Pulse 98; Resp 19 S; Pulse Ox 97% on R/A; 7 10/05 18:25 Body Mass Index 36.85 (94.35 kg, 160.02 cm) [facility] 10/05 18:25 Pain Scale: Adult [facility] MDM: 10/05 18:25 Patient medically screened. 21:45 Data reviewed: vital signs, nurses notes, lab test result(s), EKG, radiologic studies, cp CT scan, plain films. 21:45 Differential diagnosis: gastritis, pancreatitis, diverticulitis, viral gastroenteritis, cp gastroenteritis. Management of patient was discussed with the following: Hospitalist: DR Canada will admit after discussion. I considered the following discharge prescriptions or medication management in the emergency department Medications were administered in the Emergency Department. See MAR. Care significantly affected by the following chronic conditions: Hypertension, Cancer. Counseling: I had a detailed discussion with the patient and/or guardian regarding the historical points, exam findings, and any diagnostic results supporting the discharge/admit diagnosis, lab results, radiology results, the need for further work-up and treatment in the hospital. Response to treatment: the patient's symptoms have mildly improved after treatment. 10/05 18:34 Order name: Basic Metabolic Panel; Complete Time: 19:30 10/05 19:30 Interpretation: Normal except: NA 135; K 3.0; GLUC 200; BUN 5; CRE 1.84; GFR 32. 10/05 18:34 Order name: CBC with Diff; Complete Time: 21:24 10/05 19:31 Interpretation: Normal except: RDW 17.1; NOMI% 75.0. 10/05 18:34 Order name: LFT's; Complete Time: 19:30 10/05 21:14 Interpretation: Normal except: AST 49; BILID 0.3; ALB 3.3; GLOB 4.2; A/G 0.8. 10/05 18:34 Order name: Magnesium; Complete Time: 19:30 cp 10/05 18:34 Order name: NT PRO-BNP; Complete Time: 19:30 cp 10/05 18:34 Order name: PT-INR; Complete Time: 19:30 cp 10/05 18:34 Order name: Troponin HS; Complete Time: 19:30 cp 10/05 20:05 Interpretation: Normal except: Troponin HS 63.4. cp 10/05 18:34 Order name: Blood Culture Adult (2) cp 10/05 18:34 Order name: Lactate w/ 2H reflex if indic.; Complete Time: 19:30 cp 10/05 20:05 Interpretation: Reviewed. 10/05 18:34 Order name: Urinalysis W/Microscopic 10/05 21:14 Order name: Manual Differential; Complete Time: 21:24 ED[facility] 10/05 21:49 Order name: Lactate w/ 2H reflex if indic. [facility] 10/05 21:49 Order name: CBC with Automated Diff [facility] 10/05 21:49 Order name: CBC with Automated Diff [facility] 10/05 21:49 Order name: Comprehensive Metabolic Panel [facility] 10/05 21:49 Order name: Comprehensive Metabolic Panel [facility] 10/05 21:49 Order name: Troponin High Sensitivity [facility] 10/05 21:49 Order name: Troponin High Sensitivity [facility] 10/05 22:37 Order name: Lactate Sepsis 2 HR Follow-up EDNV 10/05 18:34 Order name: XRAY Chest (1 view); Complete Time: 21:10 10/05 21:10 Interpretation: Report review. 10/05 20:08 Order name: CT Abd/Pelvis - Without Contrast; Complete Time: 21:10 10/05 21:11 Interpretation: Report reviewed. 10/05 21:49 Order name: CONS Physician Consult EDNV 10/05 21:49 Order name: CONS Physician Consult [facility] 10/05 18:34 Order name: Cardiac monitoring; Complete Time: 18:37 cp 10/05 18:34 Order name: EKG - Nurse/Tech; Complete Time: 19:22 cp 10/05 18:34 Order name: IV Saline Lock; Complete Time: 18:58 10/05 18:34 Order name: Labs collected and sent; Complete Time: 18:58 10/05 18:34 Order name: O2 Per Protocol; Complete Time: 18:37 cp 10/05 18:34 Order name: O2 Sat Monitoring; Complete Time: 18:37 cp Administered Medications: 19:40 Drug: diphenhydrAMINE IVP 50 mg IVP once Route: IVP; Site: right antecubital; 10/06 01:17 Follow up: Response: No adverse reaction; Marked relief of symptoms; Other 10/05 19:40 Drug: Famotidine IVP 20 mg IVP once; dilute with 10 mL 0.9% NaCl; give over 2 minutes jw7 Route: IVP; Site: right antecubital; 10/06 01:17 Follow up: Response: No adverse reaction; Marked relief of symptoms 7 10/05 19:40 Drug: NS 0.9% IV 1000 ml IV at 1 bolus Per protocol; 1000 mL bolus Route: IV; Rate: 1 jw7 bolus; Site: right antecubital; 10/06 00:30 Follow up: Response: No adverse reaction; IV Status: Completed infusion; IV Intake: jw7 1000ml 10/05 19:50 Drug: Ondansetron IVP 4 mg IVP once; over 2 minutes Route: IVP; Site: right antecubital;7 10/06 01:16 Follow up: Response: No adverse reaction; Marked relief of symptoms; Nausea is decreasedj10/05 20:10 Drug: NS 0.9% IV 1000 ml IV at 1 bolus Per protocol; 1000 mL bolus Route: IV; Rate: 1 jw7 bolus; Site: right antecubital; 10/06 01:16 Follow up: Response: No adverse reaction; IV Status: Completed infusion; IV Intake: jw7 1000ml 10/05 21:15 Not Given (Physician Discretion): [id number] mg IVP once cp 21:24 Drug: MethylPrednisoLONE IVP 125 mg IVP once Route: IVP; Site: right antecubital; 10/06 01:16 Follow up: Response: No adverse reaction 10/05 23:33 Drug: Aspirin PO Chewable Tablet 324 mg PO once; 81 mg tablets x 4 Route: PO; 7 10/06 01:16 Follow up: Response: No adverse reaction 10/05 23:33 Drug: Potassium PO Effervescent Tablet 50 mEq PO once; dissolve in 4 ounces of water or jw7 juice Route: PO; 10/06 01:15 Follow up: Response: No adverse reaction jw7 Disposition Summary: 10/06/23 21:43 Hospitalization Ordered Notes: Hospitalization Status: Inpatient Admission cp Provider: Herb Canada cp Location: Telemetry/MedSurg (Inpatient) cp Condition: Stable cp Problem: new cp Symptoms: have improved cp Bed/Room Type: Standard cp Room Assignment: 430(10/06/23 22:21) ty Diagnosis - Nausea with vomiting, unspecified cp - Diarrhea, unspecified cp - Allergy status to unspecified drugs, medicaments and biological substances status cp Forms: - Medication Reconciliation Form cp - SBAR form cp - Leadership Thank You Letter cp Signatures: Dispatcher [employer] EDMS Juan Prieto PA PA cp Waits, Jodi, RN RN jw7 Melani Bhakta RN RN nj1 Brenda Jernigan RN RN cm10 Yemi Ureña ty Corrections: (The following items were deleted from the chart) 10/05 18:35 18:35 BASIC METABOLIC PANEL+C.LAB.BRZ ordered. EDMS EDMS 18:35 18:35 CBC+H.LAB.BRZ ordered. EDMS EDMS 18:35 18:35 HEPATIC FUNCTION+C.LAB.BRZ ordered. EDMS EDMS 18:35 18:35 MAGNESIUM+C.LAB.BRZ ordered. EDMS EDMS 18:35 18:35 PROBNP+C.LAB.BRZ ordered. EDMS EDMS 18:35 18:35 PROTIME (+INR)+COAG.LAB.BRZ ordered. EDMS EDMS 18:35 18:35 Troponin High Sensitivity+C.LAB.BRZ ordered. EDMS EDMS 18:35 18:35 BLOOD CULTURE*+BA.LAB.BRZ ordered. EDMS EDMS 18:35 18:35 LACTATE+C.LAB.BRZ ordered. EDMS EDMS 18:35 18:35 Urinalysis W/Microscopic+U.LAB.BRZ ordered. EDMS EDMS 18:35 18:35 Chest Single View+RAD.RAD.BRZ ordered. EDMS EDMS 20:11 20:11 Abdomen Pelvis Wo Con+CT.RAD.BRZ ordered. EDMS EDMS 21:14 19:19 CBC Smear Scan ordered. EDMS EDMS 22:02 21:43 cp cm10 22:21 22:02 414 cm10 ty
[2023-10-06] MEDS ORDERED: POTASSIUM 25 MEQ EFFERV TAB ONE (23:19)
[2023-10-06] MEDS ORDERED: ASPIRIN 81 MG CHEWABLE TABLET ONE (23:19)
[2023-10-07] MEDS: SCOPOLAMINE HYDROBROMIDE PATCH TD ONE ×2 (00:16→00:49)
[2023-10-07] MEDS: Ringers Lactate 1,000 ML IV SCH (00:49)
[2023-10-07] MEDS: METRONIDAZOLE 500mg IVPB 500 MG/100 ML BAG IV SCH (00:50)
[2023-10-07] MEDS: KCL 20 MEQ/100 mL IVPB 20 MEQ/100 ML BAG IV SCH (00:50)
[2023-10-07 04:02] VITALS: BMI 36.8
[2023-10-07] MEDS: MORPHINE 2 MG/ML SYR IV PRN (04:10)
[2023-10-07 06:44] LABS: Albumin 2.7 g/dL (3.4-5.0); Albumin/Globulin Ratio 0.8 (1.1-1.8); Anion Gap 13.4 mEq/L (5.0-15.0); Bilirubin Total 0.9 mg/dL (0.2-1.0); Globulin 3.4 g/dL (2.3-3.5); Potassium 4.4 mEq/L (3.5-5.1); Protein, Total 6.1 g/dL (6.4-8.2)
[2023-10-07 07:48] LABS: Absolute Lymphocytes (CBC) 0.7 K/uL (0.7-4.9); Absolute Monocytes 0.1 K/uL (0.1-1.3); Absolute Neutrophil 7.1 K/uL (1.8-8.0); Basophils % 0.1 % (0-1.3); Eosinophils % 0.2 % (0-4.4); Hematocrit 34.9 % (36.0-45.0); Hemoglobin 11.6 g/dL (12.0-15.0); Lymphocytes % 8.4 % (15.3-44.8); MCH 30.1 pg (27.0-35.0); MCHC 33.4 g/dL (32.0-36.0); MCV 90.2 fL (80-100); MPV 9.4 fL (7.6-11.3); Neutrophils % 90.3 % (41.7-73.7); Nucleated Red Blood Cells % 0.2 % (0-0); Platelets 230 thou/uL (152-406); RBC Red Blood Cell Count 3.87 M/uL (3.86-4.86); Red Cell Distribution Width 16.7 % (12.1-15.2)
[2023-10-07] MEDS: FAMOTIDINE 20 MG TAB PO SCH (08:03)
[2023-10-07] MEDS: LEVOTHYROXINE SOD 0.025 MG TAB PO SCH (08:04)
[2023-10-07] MEDS: INSULIN REGULAR (HUMAN) 100 UNIT/ML SQ SCH (08:57)
[2023-10-07] MEDS ORDERED: LEVOTHYROXINE SOD 0.025 MG TAB PO SCH (09:00)
--- NOTE | 2023-10-07 09:09 | P.PN ---
Subjective Date of Service: 10/08/23 Chief Complaint: Recurrent nausea vomiting Metastatic bladder CA, uterine cancer, admitted for left hydronephrosis, On chemotherapy was having intractable nausea vomiting diarrhea, improved with as needed medications Elevated lactic, treated for sepsis on IV fluid no reported fever - Physical Exam General: Alert, In no apparent distress, Oriented x3, Cooperative HEENT: Atraumatic, Normocephalic, PERRLA Neck: Supple, 2+ carotid pulse no bruit, JVD not distended Respiratory: Clear to auscultation bilaterally, Normal air movement Cardiovascular: Normal pulses, Regular rate/rhythm, Normal S1 S2 Capillary refill: <2 Seconds Gastrointestinal: Normal bowel sounds, Soft and benign, Non-distended, No ascites, Other Integumentary: Rash(es) (Erythematous discoid rash over anterior abdominal wall) Neurological: Normal gait, Normal strength at 5/5 x4 extr, Sensation intact, Cranial nerves 3-12 intact <Melissa Dean - Last Filed: 10/08/23 10:28> Date of Service: 10/07/23 <Doris Lucio - Last Filed: 10/08/23 14:54> Review of Systems Per HPI <Melissa Dean - Last Filed: 10/08/23 10:28> Physical Examination - Vital Signs Temperature: 97.4 F Blood Pressure: 102/65 Pulse: 77 Respirations: 18 Pulse Ox (%): 98 - Studies Laboratory Data (last 24 hrs) 10/06/23 10/06/23 10/06/23 18:50 18:50 18:50 WBC 9.50 Hgb 13.8 Hct 40.9 Plt Count 286 PT 13.4 H INR 1.23 Sodium 135 L Potassium 3.0 L BUN 5 L Creatinine 1.84 H Glucose 200 H Magnesium 1.7 Total Bilirubin 1.0 AST 49 H ALT 18 Alkaline Phosphatase 94 <Melissa Dean - Last Filed: 10/08/23 10:28> - Physical Exam Integumentary: Rash(es), Skin breakdown, Skin lesion, Erythema, Other (blistering ) <Doris Lucio - Last Filed: 10/08/23 14:54> Assessment And Plan - Plan Assessment and Plan Sepsis with hypotension due to intractable nausea vomiting improved Lactic acidosis improved IV fluids, IV antibiotics, Flagyl, Zosyn trend lactic Empiric antibiotics IV Flagyl, Trend cultures, UA blood culture, stool culture, chemotherapy induced nausea and vomiting improved Intractable nausea vomiting improved Dehydration secondary to nausea vomiting diarrhea improved Chemotherapy-induced enteritis improved Stomatitis IV fluids, IV antibiotics As needed antiemetics, analgesics Magic mouthwash/lidocaine Left hydronephrosis ZANDER (acute kidney injury) likely secondary to dehydration improved LR, IV fluids, trend kidney function Persistent left hydro, continue to monitor Nephrology to follow in a.m. if still persistent no improvement creatinine elevation Diabetes type 2 with hyperglycemia Sliding scale insulin, Accu-Chek Metastatic uterine cancer ureteral mass Bladder cancer Follow-up with oncology outpatient Hypertension Elevated troponin Telemetry, trend troponin Abdominal skin rash Benadryl as needed Obtain name of chemo and see if possible likely causing abdominal skin rash IV Benadryl as needed itching Hypokalemia Trend electrolytes replace as needed Hypothyroidism Resume home meds DVT subcutaneous Lovenox for DVT prophylaxis Full code Diet clear liquid advance as tolerated Discharge Plan: Home Critical Care: No Time Spent Managing PTS Care (In Minutes): 35 <Melissa Dean - Last Filed: 10/08/23 10:28> Date of Service: 10/07/23 Patient is a 53-year-old female who came to the hospital with hypersensitivity reaction to chemotherapeutic agent. Consulted/called oncology and waiting for callback. Patient's developed a macular papular rash on her abdomen and her bilateral lower extremities after second course of chemotherapy. She developed a blister. Continue monitoring. 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 Will monitor closely. Started IV steroids. If pts condition worsens, will transfer to ICU. <Doris Lucio - Last Filed: 10/08/23 14:54>
[2023-10-07] MEDS: PIPER TAZO 3.375 GM in NA CHLORIDE 0.9% 100 ML IV SCH (11:08)
[2023-10-07] MEDS: LACTOBACILLUS/ACIDOPHILUS TAB PO SCH (11:09)
--- NOTE | 2023-10-07 12:56 | EKG ---
Test Date: 2023-10-06 Test Time: 19:15:22 Drapery Hemmer Automatic: KYLE MEASUREMENT RESULTS: Intervals: Rate: 103 NM: 136 QRSD: 82 QT: 450 QTc: 589 [place]: P: 57 NM: 136 QRS: 11 T: 180 INTERPRETIVE STATEMENTS: Sinus tachycardia Inferior infarct, age undetermined T wave abnormality, consider lateral ischemia Abnormal ECG Compared to ECG 09/25/2023 10:18:44 T-wave abnormality now present Possible ischemia now present Sinus rhythm no longer present Left-axis deviation no longer present Myocardial infarct finding still present Electronically Signed On 10-07-23 12:54:45 CDT by [place]
[2023-10-07] MEDS: HYDROCORTISONE SUC 100 MG INJ IV SCH (15:12)
[2023-10-07] MEDS: INSULIN GLARGINE 100 UNIT/ML SQ ONE (15:12)
[2023-10-07] MEDS: NA CHLORIDE 0.9% 500 ML IV ONE (18:12)
[2023-10-07] MEDS: ONDANSETRON 4 MG/2 ML VIAL IV PRN (18:13)
--- NOTE | 2023-10-07 22:09 | P.CNS ---
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 This progressed to severe itching and a rash involving her lower abdomen on 10/05/2023, and ultimately an emergency department presentation. Additionally, she has developed oral and aphthous ulceration and pain with difficulty eating and swallowing, and she has blisters involving the skin of her abdomen. She still feels miserable despite now 24 to 48 hours of hospitalization and management. Examination: Patient slightly ill-appearing but in no acute distress Alert, awake, oriented x 3 No dyspnea or sign of respiratory distress Abdomen generalized erythema but nontender, with superficial large bullous lesions of the skin of the lower abdomen and pannus 10/06/2023 WBC 9.5, hemoglobin 13.8, platelets 286, bicarb 24, lactate 3.2, INR 1.23, creatinine 1.84 10/07/2023 lactate 3.4, bicarb 21, creatinine 1.55, glucose 297 10/06/2023 CT abdomen and pelvis without contrast radiologist impression: Mild to moderate enlargement of several periaortic lymph nodes. -By review of CT: Left renal atrophy with distal left ureteral thickening. Stent in good position without hydronephrosis. When compared to CT with IV contrast performed 07/19/2022, at that time there was significant hydro nephrosis with thinning of the parenchyma, which would explain the renal atrophy seen at present with resolution of the hydronephrosis. 10/06/2023 EKG with sinus tachycardia and T wave abnormality questionable lateral ischemia Chest x-ray unremarkable Assessment and recommendation: 53-year-old woman with hypertension and DM2 with left upper tract metastatic urothelial carcinoma, with left ureteral stent placed due to chronic obstruction, undergoing secondary/alternate chemotherapeutic regimen with suspected Mccarthy-Isaac's reaction/syndrome, ZANDER and persistent lactic acidosis. -As the patient was scheduled for operative evaluation tomorrow, unfortunately, her current clinical appearance would not be conducive to such anesthetic operative intervention. As a result, the case will be canceled and rescheduled to perhaps next week or soon thereafter to manage the chronically retained left ureteral stent. -She would likely benefit from aggressive fluid resuscitation to manage the lactic acidosis while simultaneously managing the suspected Mccarthy-Isaac syndrome. -While she has atrophy of the left renal unit, there is no hydronephrosis; so I suspect her ZANDER is likely associated with the vasodilatation effects of the allergic reaction, third spacing of fluids, and insufficient renal blood flow. This may be improved with fluid management as well.
[2023-10-07] MEDS: MORPHINE 4 MG/ML SYR ONE (23:56)
--- NOTE | 2023-10-08 04:51 | CON ---
Date of Consultation: 10/07/2023 Chief Complaint: Acute kidney injury. History Of Present Illness: The patient came to the hospital because of recurrent nausea, vomiting. She is a 53-year-old woman with past medical history significant for hypertension, diabetes mellitus , metastatic bladder cancer, left uterine cancer with chronic left hydronephrosis, on chemotherapy. The patient follows with Dr. Berry [facility], status post chemotherapy 1 week ago. She develope d nausea and vomiting 1 day after chemotherapy was administered and she did not have any improvement on the last 3 days. The patient developed a new rash on the abdominal wall associated with itching. She denies fever or chills. She is voiding well. Denies dysuria, hematuria. Denies kidney colic a nd lab work obtained in the emergency room showed creatinine elevated at 1.4, potassium 3.0, lactic a orestes elevated at 3.2. Chest x-ray showed acute infiltrate. CT scan of the abdomen and pelvis showed left hydronephrosis, but no acute intraabdominal pathology. Review of Systems: Constitutional: Denies fever, chills. Eyes: Denies vision changes. Ears, Nose, Mouth, and Throat: Denies sore throat, earache. Respiratory: Denies PND, orthopnea. Cardiovascular: Denies chest pain, palpitation. GI: Denies nausea, vomiting. : Denies dysuria, hematuria. All other systems reviewed and all are negative. Past Medical History: Hypertension, diabetes, depression, bladder biopsy, Port-A-Cath placement. Physical Examination: General: The patient is alert and oriented x3. Lungs: Normal respiratory effort. No wheezing. No rhonchi. Neck: Atraumatic, normocephalic. Eyes: Anicteric sclerae. EOMI. Cardiovascular: Regular rate. S1 and S2. No pericardial friction rub. Abdomen: Soft, benign. No ascites. : Denies chest pain, palpitation, syncope. Lab Work: PT 13.4, PTT 1.23, WBC 9.5, hemoglobin 13.8, platelet count is 286. Impression And Plan: Chemotherapy-induced nausea, vomiting, chemotherapy-induced diarrhea, chemother apy-induced enteritis, acute kidney injury, hyperglycemia, ureteral mass, bladder cancer, status post chemotherapy, hypertension. EB/MODL Voice ID: [id number] Report ID: [id number]
[2023-10-08 07:06] LABS: Albumin 2.7 g/dL (3.4-5.0); Anion Gap 11.6 mEq/L (5.0-15.0); BUN Blood Urea Nitrogen 6 mg/dL (7-18); Bicarbonate 21 mEq/L (21-32); Glomerular Filtration Rate 41 ml/min (=/>90); Glucose Level 272 mg/dL (74-106); Magnesium 1.5 mg/dL (1.6-2.4); Potassium 3.6 mEq/L (3.5-5.1); Sodium Level 135 mEq/L (136-145)
[2023-10-08 07:09] LABS: Phosphorus < 0.5 mg/dL (2.5-4.9)
[2023-10-08] MEDS: Magnesium Sulfate 2gm IVPB 2 G/50 ML BAG IV ONE (08:54)
[2023-10-08] MEDS: SODIUM PHOSPHATE 30 MM in NA CHLORIDE 0.9% 500 ML IV ONE (08:54)
[2023-10-08] MEDS: NA CHLORIDE 0.9% 500 ML IV ONE (08:55)
--- NOTE | 2023-10-08 10:34 | P.DS ---
Admission Date: 10/07/23 Discharge Date: 10/08/23 Disposition: ROUTINE DISCHARGE Discharge Condition: GOOD Reason for Admission: Recurrent nausea vomiting Brief History of Present Illness: 53-year-old female with past medical history of HTN/DM/metastatic bladder and left uterine cancer with chronic left hydronephrosis, on chemotherapy follows with Dr. Berry; status post chemotherapy 1 week ago; developed nausea and vomiting 1 day after the last chemo since the last 3 days with intermittent symptoms and persistent since then. She has also been having diarrhea. She developed this new rash over abdominal wall, associated with itching. She denies any fever or chills. She is still voiding well and denies any dysuria. She presented to the hospital today because of persistent vomiting. On arrival in the ED vital signs were stable, laboratory workup showed WBC of 9.5 with no differentials but 7% bandemia, creatinine elevated at 1.84, potassium 3.0, lactic acid elevated at 3.2. Chest x-ray shows no acute infiltrate. CT of the abdomen and pelvis shows left hydronephrosis but no acute intra-abdominal pathology She has been admitted for presumed sepsis with chemo induced toxicity with acute kidney injury and allergic skin rash - Physical Exam General: Alert, In no apparent distress, Oriented x3, Cooperative HEENT: Atraumatic, Normocephalic, PERRLA Neck: Supple, 2+ carotid pulse no bruit, JVD not distended Respiratory: Clear to auscultation bilaterally, Normal air movement Cardiovascular: Normal pulses, Regular rate/rhythm, Normal S1 S2 Capillary refill: <2 Seconds Gastrointestinal: Normal bowel sounds, Soft and benign, Non-distended, No ascites, Other Integumentary: Rash(es) (Erythematous discoid rash over anterior abdominal wall) Neurological: Normal gait, Normal strength at 5/5 x4 extr, Sensation intact, Cranial nerves 3-12 intact Hospital Course: 53-year-old female with past medical history of HTN/DM/metastatic bladder and left uterine cancer with chronic left hydronephrosis, on chemotherapy follows with Dr. Berry; status post chemotherapy 1 week ago; developed nausea and vomiting 1 day after the last chemo since the last 3 days with intermittent symptoms and persistent since then. She has also been having diarrhea. She developed this new rash over abdominal wall, associated with itching. She denies any fever or chills. She is still voiding well and denies any dysuria. She presented to the hospital today because of persistent vomiting. Was treated with IV fluids, as needed antiemetics, IV antibiotics, empiric. Patient has diarrhea resolved, nausea vomiting controlled with as needed antiemetics, rash improving with steroids. Follow-up with Dr. Berry oncology outpatient. Assessment Chemo induced nausea vomiting controlled with as needed antiemetics Chemo induced diarrhea improved, Chemo induced enteritis improved with IV fluids IV antibiotics Rash, treated with steroids, Uterine cancer, follow-up with Dr. Coker outpatient for oncology Bladder cancer follow-up with Dr. Coker outpatient oncology urothelial carcinoma, with left ureteral stent placed due to chronic obstruction follow-up with Dr. Mckeon outpatient year-old female patient presented with Was noted to have Condition improved with Patient tolerating diet, stable for discharge to home with follow-up appointment with primary care physician. Continue home medicines as previously prescribed GOAL: Clear understanding of disease process INSTRUCTIONS: Physician Discharge Instructions: -Follow-up with PCP in 1 to 2 weeks -Please call Dr. Lucio at [phone] if any questions regarding hospital stay -Please call nursing station at [phone] if any nursing or medication questions -Return to the emergency room if symptoms worsen Diet: ADA, low sodium Activity: Fall precautions Vital Signs/Physical Exam: Temp Pulse Resp BP Pulse Ox 97.4 F 77 18 102/65 98 10/08/23 10:28 10/08/23 10:28 10/08/23 10:28 10/08/23 10:28 10/08/23 10:28 Laboratory Data at Discharge: WBC 7.80 thou/uL (4.3-10.9) 10/07/23 06:09 Hgb 11.6 g/dL (12.0-15.0) L D 10/07/23 06:09 Hct 34.9 % (36.0-45.0) L 10/07/23 06:09 Plt Count 230 thou/uL (152-406) 10/07/23 06:09 PT 13.4 SECONDS (9.5-12.5) H 10/06/23 18:50 INR 1.23 10/06/23 18:50 Sodium 135 mEq/L (136-145) L 10/08/23 06:33 Potassium 3.6 mEq/L (3.5-5.1) D 10/08/23 06:33 BUN 6 mg/dL (7-18) L 10/08/23 06:33 Creatinine 1.52 mg/dL (0.55-1.02) H 10/08/23 06:33 Glucose 272 mg/dL (74-106) H 10/08/23 06:33 Phosphorus < 0.5 mg/dL (2.5-4.9) L* 10/08/23 06:33 Magnesium 1.5 mg/dL (1.6-2.4) L 10/08/23 06:33 Total Bilirubin 0.9 mg/dL (0.2-1.0) 10/07/23 06:09 AST 38 U/L (15-37) H 10/07/23 06:09 ALT 16 U/L (13-56) 10/07/23 06:09 Alkaline Phosphatase 73 U/L (45-117) D 10/07/23 06:09 Home Medications: Amlodipine Besylate 10 mg PO DAILY 09/25/23 Fenofibrate [Tricor] 145 mg PO DAILY 09/25/23 Levothyroxine Sodium 50 mcg PO DAILY 09/25/23 Lisinopril [Zestril] 40 mg PO DAILY 09/25/23 OLANZapine [Zyprexa Zydis] 5 mg PO DAILY 09/25/23 Rosuvastatin Calcium 20 mg PO DAILY 09/25/23 buPROPion HCL [Bupropion Xl] 150 mg PO BEDTIME 09/25/23 glipiZIDE [Glipizide] 10 mg PO BID 09/25/23 Omeprazole 20 mg PO DAILY 10/07/23 Ondansetron [Zofran (Odt)*] 8 mg PO DAILY 10/07/23 Diet: Regular Activity: Fall precautions Followup: Michaela Sterling MD [Primary Care Provider] - Time spent managing pt's care (in minutes): 55
--- NOTE | 2023-10-08 10:35 | P.PN ---
Subjective Date of Service: 10/08/23 Chief Complaint: Recurrent nausea vomiting Metastatic bladder CA, uterine cancer, admitted for left hydronephrosis, On chemotherapy was having intractable nausea vomiting diarrhea, improved with as needed medications Elevated lactic, treated for sepsis on IV fluid no reported fever - Physical Exam General: Alert, In no apparent distress, Oriented x3, Cooperative HEENT: Atraumatic, Normocephalic, PERRLA Neck: Supple, 2+ carotid pulse no bruit, JVD not distended Respiratory: Clear to auscultation bilaterally, Normal air movement Cardiovascular: Normal pulses, Regular rate/rhythm, Normal S1 S2 Capillary refill: <2 Seconds Gastrointestinal: Normal bowel sounds, Soft and benign, Non-distended, No ascites, Other Integumentary: Rash(es) (Erythematous discoid rash over anterior abdominal wall) Neurological: Normal gait, Normal strength at 5/5 x4 extr, Sensation intact, Cranial nerves 3-12 intact <Melissa Dean - Last Filed: 10/08/23 10:34> Date of Service: 10/08/23 <Doris Lucio - Last Filed: 10/08/23 15:24> Physical Examination - Vital Signs Temperature: 97.4 F Blood Pressure: 102/65 Pulse: 77 Respirations: 18 Pulse Ox (%): 98 <Melissa Dean - Last Filed: 10/08/23 10:34> Assessment And Plan - Plan Assessment and Plan Sepsis with hypotension due to intractable nausea vomiting improved Lactic acidosis improved IV fluids, IV antibiotics, Flagyl, Zosyn trend lactic Empiric antibiotics IV Flagyl, Trend cultures, UA blood culture, stool culture, chemotherapy induced nausea and vomiting improved Intractable nausea vomiting improved Dehydration secondary to nausea vomiting diarrhea improved Chemotherapy-induced enteritis improved Stomatitis IV fluids, IV antibiotics As needed antiemetics, analgesics Magic mouthwash/lidocaine Left hydronephrosis ZANDER (acute kidney injury) likely secondary to dehydration improved LR, IV fluids, trend kidney function Persistent left hydro, continue to monitor Nephrology to follow in a.m. if still persistent no improvement creatinine elevation Diabetes type 2 with hyperglycemia Sliding scale insulin, Accu-Chek Metastatic uterine cancer ureteral mass Bladder cancer Follow-up with oncology outpatient Hypertension Elevated troponin Telemetry, trend troponin Abdominal skin rash Benadryl as needed Obtain name of chemo and see if possible likely causing abdominal skin rash IV Benadryl as needed itching Hypokalemia Trend electrolytes replace as needed Hypothyroidism Resume home meds DVT subcutaneous Lovenox for DVT prophylaxis Full code Diet clear liquid advance as tolerated Physician Review: Patient Assessed, Agree with Above Assessment and Plan <Melissa Dean - Last Filed: 10/08/23 10:34> Date of Service: 10/08/23 Patient is clinically a little worse today. Blisters are much more significant. She has a blister on her right upper extremity by her IV. She has blister/pannus region. She has a blister on her left lower extremity. Also has oral ulcerations. At this time, she will be transferred to a tertiary care facility; burn unit for further treatment. <Doris Lucio - Last Filed: 10/08/23 15:24>
[2023-10-08] MEDS: DIPHENHYDRAMINE 50 MG/ML VIAL IV PRN (14:54)
--- NOTE | 2023-10-08 17:48 | PN ---
Date of Progress Note: 10/08/2023 Subjective: The patient was admitted with acute kidney injury secondary to prerenal gastroenteritis. The patient was started on hydration. Kidney function normalized. The patient feeling better. Physical Examination: Vital Signs: Blood pressure 102/65, pulse of 77, afebrile. Chest: Clear to auscultation. Heart: S1, S2, regular. Abdomen: Soft, nontender. Extremities: No edema. Neurologic: Alert, no focality. Laboratory Data: Hemoglobin 11.6. Sodium 135, potassium 3.6, bicarb 21, BUN 6, creatinine 1.5, GFR of 41. Calcium 8, phosphorus less than 5, magnesium 1.5. Current Medications: The patient on include IV fluid, diphenhydramine, Zosyn, hydralazine, lorazepam, LR, Pepcid, hydrocortisone, levothyroxine, insulin, magnesium oxide, potassium phosphate. Assessment And Plan: 1. Acute kidney injury, secondary to prerenal, secondary to gastroenteritis, superimposed with contrast exposure, complicated with hyponatremia, hypophosphatemia, and hypokalemia. Kidney function continues to improve. I am going to continue IV hydration. Obstructive uropathy has been ruled out. 2. Hypertension, controlled, optimal, please avoid NOE inhibitor or ARB. 3. Hypophosphatemia, hypomagnesemia, we will continue to supplement. 4. Hypokalemia, we will supplement. 5. Gastroenteritis, continue symptomatic treatment. Time spent examining the patient [id number], reviewing data, lab and radiology, placing order, discussing the case with the patient, discussing the case with the steamer gum candy including hospitalist and nursing staff with the dialysis nurse more than 35 minutes SANDRA Voice ID: [id number] Report ID: [id number] JUHI
[2023-10-08] MEDS: HYDROMORPHONE HCL 1 MG/ML INJ IV ONE (20:48)
[2023-10-08] MEDS ORDERED: HOME MED 1 EA UNK (Glipizide [Glipizide] 10 MG Tablet) PO SCH (21:00)
[2023-10-08] MEDS: BUPROPION HCL XL 150 MG TAB PO SCH (21:34)
[2023-10-08] MEDS: ROSUVASTATIN 10 MG TAB PO SCH (21:34)
[2023-10-08] MEDS: LORAZEPAM 0.5 MG TABLET PO PRN (23:05)
[2023-10-08 23:40] LABS: Specific Gravity 1.023 (1.005-1.030); Sqamous Epithelial <5 /HPF (None Seen); Urine Bacteria None Seen /HPF (<20); Urine Bilirubin NEGATIVE (Negative); Urine Blood Negative (Negative); Urine Clarity Clear (Clear); Urine Color Yellow (Yellow); Urine Culture Reflex Order NOT NEEDED; Urine Glucose 3+ (Negative); Urine Granular Casts 0-5 /LPF (None Seen); Urine Ketones 1+ (Negative); Urine Micro Reflex YN NO BILL MICROSCOPIC; Urine Mucus Slight /HPF (None Seen); Urine Nitrite NEGATIVE (Negative); Urine Protein 1+ (Negative); Urine RBC <5 /HPF (None Seen); Urine Urobilinogen Normal (Normal); Urine WBC <5 /HPF (<5); Urine pH 5.5 (5.0-7.0)
[2023-10-09 06:54] LABS: Absolute Monocytes 0.4 K/uL (0.1-1.3); Absolute Neutrophil 6.6 K/uL (1.8-8.0); Basophils % 0.1 % (0-1.3); Eosinophils % 0.3 % (0-4.4); Hemoglobin 11.3 g/dL (12.0-15.0); Lymphocytes % 12.5 % (15.3-44.8); MCH 30.9 pg (27.0-35.0); MCHC 34.1 g/dL (32.0-36.0); MCV 90.5 fL (80-100); MPV 9.4 fL (7.6-11.3); Monocytes % 4.4 % (3.3-12.3); Neutrophils % 82.7 % (41.7-73.7); Nucleated Red Blood Cells % 0.1 % (0-0); Platelets 229 thou/uL (152-406); RBC Red Blood Cell Count 3.65 M/uL (3.86-4.86); Red Cell Distribution Width 17.3 % (12.1-15.2)
[2023-10-09] MEDS ORDERED: HOME MED 1 EA UNK (Glipizide [Glipizide] 10 MG Tablet) PO SCH (07:30)
[2023-10-09] MEDS: PANTOPRAZOLE 40MG TABLET PO SCH (08:22)
[2023-10-09] MEDS: glipiZIDE 5 MG TAB PO SCH (08:22)
[2023-10-09] MEDS ORDERED: HOME MED 1 EA UNK (Rosuvastatin Calcium [Rosuvastatin Calcium] 20 MG Tablet) PO SCH (09:00)
[2023-10-09] MEDS ORDERED: HOME MED 1 EA UNK (Omeprazole [Omeprazole] 20 MG Capsule.Dr) PO SCH (09:00)
[2023-10-09 10:23] LABS: Albumin 2.7 g/dL (3.4-5.0); Albumin/Globulin Ratio 0.8 (1.1-1.8); Anion Gap 10.3 mEq/L (5.0-15.0); Bilirubin Total 0.9 mg/dL (0.2-1.0); Globulin 3.3 g/dL (2.3-3.5); Potassium 3.3 mEq/L (3.5-5.1)
[2023-10-09 10:33] LABS: Phosphorus 1.2 mg/dL (2.5-4.9)
[2023-10-09 11:03] VITALS: O2SAT 94
[2023-10-09] MEDS: NA CHLORIDE 0.9% 250 ML IV ONE (11:21)
[2023-10-09] MEDS: POTASSIUM PHOS IN 0.9 % NACL 15 MMOL/250 ML BAG IV ONE (11:25)
[2023-10-09] MEDS: POTASSIUM PHOS 30 MM in NA CHLORIDE 0.9% 500 ML IV ONE (11:29)
--- NOTE | 2023-10-09 12:30 | P.PN ---
Date of Service: 10/09/23 Subjective Physical Examination - Vital Signs reviewed - Physical Exam General: Alert, In no apparent distress, Oriented x3, Cooperative HEENT: Aphthous ulcers Respiratory: Clear to auscultation bilaterally, Normal air movement Cardiovascular: Normal pulses, Regular rate/rhythm, Normal S1 S2 Gastrointestinal: Normal bowel sounds, Soft and benign, Non-distended, No ascites, Other Integumentary: Erythematous discoid rash over anterior abdominal wall; maculopapular with bulloous lesions to the upper torso, extremity, abdomen abd lower extremity wit blistering of the skin Neurological: no focal deficits Assessment and Plan Enrique Isaac Syndrome; 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 if still persistent no improvement creatinine elevation Diabetes type 2 with hyperglycemia Sliding scale insulin, Accu-Chek On steroids; will give long acting insulin Ureteral cancer Follow-up with oncology outpatient Hypertension Type II VA Telemetry, trend troponin; no cardiac intervention at this time; further work-up when medically stable. Hypokalemia Trend electrolytes replace as needed; on hydrocortisone so monitor Hypothyroidism Resume home meds Paroxysymal atrial fibrillation -Meds for rate control DVT subcutaneous Lovenox for DVT prophylaxis Full code Diet clear liquid advance as tolerated Physician Review: Patient Assessed, Agree with Above Assessment and Plan
[2023-10-09] MEDS: Ringers Lactate 1,000 ML IV SCH (13:24)
[2023-10-09 14:07] VITALS: TEMP 97.4
[2023-10-09] MEDS: MORPHINE 4 MG/ML SYR IV PRN (14:44)
[2023-10-09] MEDS: NA CHLORIDE 0.9% 500 ML IV ONE (14:45)
--- NOTE | 2023-10-09 16:35 | PN ---
Date of Progress Note: 10/09/2023 Subjective: The patient was admitted to the hospital with acute kidney injury, questionable of Enrique-Jackson. Patient had some blister on the upper chest with edema. Physical Examination: Vital Signs: Blood pressure 113/83, pulse of 68, afebrile. The patient had good urine output of 520. The patient positive balance. Chest: Clear to auscultation. Heart: S1, S2. Regular. Abdomen: Soft, nontender. Extremities: Plus edema. Neuro: Alert, no focality. Skin: Has a couple of blister on the upper chest. Laboratory Data: Hemoglobin 11.3, WBC 8. Sodium 137, potassium 3.3, bicarb 23, BUN 5, creatinine down to 1.2. GFR of 50. Calcium 7.9, phos 1.2, magnesium of 2 albumin 2.7, corrected calcium is 9.1. Current Medications: The patient on include: 1. Zosyn. 2. Diphenhydramine. 3. Atorvastatin. 4. Pantoprazole 5. Lorazepam. 6. LR at 125 per hour. Assessment And Plan: 1. Acute kidney injury secondary to prerenal questionable of insensible loss from the skin. On the recovery, looked to me slightly on the wet side. I am going to decrease IV fluid to 75 of LR. 2. Hypokalemia, hypophosphatemia. I going to replace both and we will follow up the patient. 3. I am going to go ahead and send for CK. 4. Hypertension, controlled, optimal. Continue current treatment. 5. Possible Enrique-Jackson syndrome. Continue hydration. We will follow up with primary. Time spent examining the patient [id number], reviewing data, lab and radiology, placing order, discussing the case with the patient, discussing the case with the care team coordinator scheduler including hospitalist and nursing staff with the dialysis nurse more than 35 minutes SANDRA Voice ID: [id number] Report ID: [id number] JUHI
[2023-10-09 18:15] VITALS: BP 110/54
[2023-10-10] MEDS ORDERED: POTASS/SODIUM PHOSPHATE 1 PKT POWD.PACK PO SCH (09:00)
== END 2023-10-09 17:25 | disposition short-term general hospital (02) | DRG 871 ==
LOC: ER 18:11 → ERHOLD 21:41 → 4TH 22:17 → OBSVTOIN 10-07 13:53 → 3RD-ICU 10-08 20:15
PROVIDERS: ADMIT Internal Medicine; ATTEND Hospitalist
PROC: 0T9B70Z Drainage of Bladder with Drainage Device, Via Natural or Artificial Opening (ICD-10-PCS; principal; 2023-10-07)
DX: A41.9 Sepsis, unspecified organism (principal); I21.A1 Myocardial infarction type 2; K52.1 Toxic gastroenteritis and colitis; C79.11 Secondary malignant neoplasm of bladder; N17.9 Acute kidney failure, unspecified; N13.30 Unspecified hydronephrosis; E87.20 Acidosis, unspecified; L51.1 Stevens-Johnson syndrome; E87.1 Hypo-osmolality and hyponatremia; I10 Essential (primary) hypertension; N28.9 Disorder of kidney and ureter, unspecified; E11.65 Type 2 diabetes mellitus with hyperglycemia; E03.9 Hypothyroidism, unspecified; E86.0 Dehydration; E87.6 Hypokalemia; E83.42 Hypomagnesemia; E83.39 Other disorders of phosphorus metabolism; I48.0 Paroxysmal atrial fibrillation; K12.1 Other forms of stomatitis; C55 Malignant neoplasm of uterus, part unspecified; T45.1X5A Adverse effect of antineoplastic and immunosuppressive drugs, initial encounter; R21 Rash and other nonspecific skin eruption; Z88.8 Allergy status to other drugs, medicaments and biological substances; Z79.84 Long term (current) use of oral hypoglycemic drugs; Z79.890 Hormone replacement therapy; Z79.899 Other long term (current) drug therapy
CPT/HCPCS: 36415; 71045; 74176; 80048; 80053; 80069; 80076; 81001; 82947; 83605; 83735; 83880; 84100; 84145; 84484; 85025; 85610; 87040; 93005; 96361; 96374; 96375; 99285; G0378; J1170; J1200; J1720; J1815; J2270; J2405; J2543; J2919; J3475; J3480; J7030; J7040; J7050; J7120

== ENCOUNTER 2024-07-14 08:35 | Day surgery (SDC) | payer OTHER, SELFPAY ==
[2024-07-07 10:14] LABS: Absolute Basophils 0.1 K/uL (0-0.5); Absolute Eosinophils 0.2 K/uL (0-0.5); Absolute Lymphocytes (CBC) 2.7 K/uL (0.7-4.9); Absolute Monocytes 0.5 K/uL (0.1-1.3); Basophils % 0.7 % (0-1.3); Eosinophils % 2.3 % (0-4.4); Hematocrit 41.6 % (36.0-45.0); Hemoglobin 14.1 g/dL (12.0-15.0); Lymphocytes % 31.6 % (15.3-44.8); MCHC 33.9 g/dL (32.0-36.0); MCV 88.4 fL (80-100); MPV 7.4 fL (7.6-11.3); Monocytes % 6.1 % (3.3-12.3); Neutrophils % 59.3 % (41.7-73.7); Platelets 293 thou/uL (152-406); Red Cell Distribution Width 16.2 % (12.1-15.2)
[2024-07-07 10:21] LABS: PT Prothrombin Time 11.9 SECONDS (9.4-12.5); Protime INR 1.13
[2024-07-07 10:22] LABS: Anion Gap 6.4 mEq/L (5.0-15.0); Potassium 4.4 mEq/L (3.5-5.1)
--- NOTE | 2024-07-07 12:18 | RAD REPORT ---
Procedure: Chest Pa And Lat (2 Views) HISTORY: Preop for genitourinary surgery. Hypertension COMPARISON: September 2023 FINDINGS: The lungs appear clear of acute infiltrate. No significant pleural effusion noted. The heart is normal size.. Central venous catheter with its tip 1 cm into the right atrium IMPRESSION: No acute abnormality is displayed.
--- NOTE | 2024-07-08 12:31 | EKG ---
Test Date: 2024-07-07 Test Time: 10:47:00 In [employer] Suspension Aide: KATHERINE MEASUREMENT RESULTS: Intervals: Rate: 73 NH: 142 QRSD: 74 QT: 418 QTc: 460 [place]: P: 58 NH: 142 QRS: -19 T: 87 INTERPRETIVE STATEMENTS: Normal sinus rhythm Anterolateral infarct, age undetermined Abnormal ECG Compared to ECG 10/06/2023 19:15:22 Sinus tachycardia no longer present T-wave abnormality no longer present Possible ischemia no longer present Myocardial infarct finding still present Electronically Signed On 07-08-24 12:29:[address]GRAPHER by Phani Zapata
[2024-07-14] MEDS: NA CHLORIDE 0.9% 1,000 ML ONE (09:15)
[2024-07-14] MEDS: Gentamicin Inj 180 MG in NA CHLORIDE 0.9% 100 ML IV ONE (10:28)
[2024-07-14] MEDS: AMPICILLIN SODIUM 2 GM/VIAL VIAL ONE (10:35)
[2024-07-14] MEDS ORDERED: ONDANSETRON 4 MG/2 ML VIAL ONE (10:40)
[2024-07-14] MEDS ORDERED: FENTANYL CITR 100 MCG/2 ML ONE (10:40)
[2024-07-14] MEDS ORDERED: MIDAZOLAM HCL 2 MG/2 ML INJ ONE (10:40)
[2024-07-14] MEDS ORDERED: propofoL 200 MG/20 ML VIAL IV ONE (10:40)
[2024-07-14] MEDS ORDERED: LIDOCAINE 1% MPF 5 ML VIAL ONE (11:08)
[2024-07-14] MEDS ORDERED: EPHEDRINE SULF 50 MG/ML VIAL ONE (11:08)
[2024-07-14] MEDS ORDERED: Phenylephrine HCl 10 MG/ML 1 ML VIAL ONE (11:08)
[2024-07-14 12:04] VITALS: O2SAT 95
--- NOTE | 2024-07-14 12:10 | P.OP ---
Date of Service: 07/14/24 Preoperative diagnoses: Left proximal ureteral obstruction Metastatic urothelial carcinoma Retained left ureteral stent Postoperative diagnoses: Left proximal ureteral obstruction Metastatic urothelial carcinoma Retained left ureteral stent Principal procedures: Cystoscopy Left retrograde pyelography Left ureteral stent exchange Indication for procedure: Ms. Pinon presented to the [facility] on 05/24/2022 with left flank pain that had been intermittent for the last 2 months. She also had some gross hematuria, but underwent CT scan at [facility] in [place] where a proximal ureteral mass was suspected. She underwent biopsy with stent placement and was found to have urothelial carcinoma involving her upper tract, but unfortunately, restaging imaging revealed the presence of extra ureteral and intra-abdominal metastases. As a result, she has been treated with medical oncology with limited response to enfortumab vedotin, now on Keytruda. Procedure note: The patient was consented in the preoperative holding area before being transferred to the operative suite where general anesthesia was induced. She was given ampicillin 2 g and gentamicin 180 mg IV antimicrobial prophylaxis, and pneumoboots were provided for DVT prophylaxis. She was placed in the lithotomy position, padded and secured to the table appropriately. Her genitalia was prepped with Hibiclens and she was draped in standard fashion. The case has begun using the 22 [place] rigid cystoscope to traverse the urethra and into the bladder. There was some mild proximal ureteral stenosis encountered. Upon entry into the bladder, it was decompressed of fluid and urine, and I surveyed the bladder in its entirety. No concerning papillary mucosal lesions were noted throughout. There was evidence of mild residual chronic cystitis. Of note, the patient was given a prescription for Bactrim to begin on Saturday in preparation for surgery today. The stent was noted emanating from the left ureteral orifice, and it was in good position. It was minimally encrusted around the coil. As a result, I inserted a 5 [place] ureteral access catheter into the ureteral orifice alongside the indwelling stent, and I advanced a sensor wire through the 5 [place] ureteral access catheter putatively into the collecting system as evidenced fluoroscopically. I then advanced the 5 [place] ureteral access catheter over the wire all the way into the proximal ureter just distal to the UPJ. I then placed the cystoscope back into her bladder and used an alligator grasper to grasp the coil of the stent, and I was then able to remove the stent in its entirety, with both coils intact, with ease from her collecting system. I then backed the 5 [place] ureteral access catheter down into the distal ureter to perform a retrograde study. Left retrograde pyelography: Using a 70: 30 mixture of Omnipaque and saline, contrast was injected via the lumen of the 5 [place]ian ureteral access catheter and did propagate up the distal into the mid before entering the proximal ureter where it reached a point of obstruction and there was delayed transit for 1 to 2 seconds. Contrast did eventually navigate beyond this point of obstruction and into the collecting system which was somewhat bifid in appearance. I then advanced the sensor wire via the 5 [place]ian ureteral access catheter up the ureter and into the collecting system into the upper pole as evidenced fluoroscopically. I remove the 5 [place]ian ureteral access catheter and observe the left renal urine for drainage. I then elected to replace a new 7 [place]ian by 26 cm double-J ureteral stent, because a 7 [place]ian by 24 cm stent was not available. The coil was observed fluoroscopically in the upper pole and 1 cystoscopically was formed in her bladder. I then decompressed her bladder of fluid and urine before removing the cystoscope. She was then taken out of the lithotomy position, awakened from general anesthesia, transferred to a stretcher, and then transferred to the recovery room in good condition. Complications: None Discharge disposition: She should follow-up in 4 to 5 months to prepare for the next stent exchange versus extraction, depending on whether persistent obstruction is present relative to her new treatment with Keytruda.
[2024-07-14] MEDS ORDERED: CODEINE 30MG/APAP 300MG TAB ONE (12:12)
[2024-07-14] MEDS ORDERED: PHENAZOPYRIDINE 100MG TAB PO ONE (12:12)
[2024-07-14] MEDS: CODEINE 30MG/APAP 300MG TAB PO PRN (12:21)
[2024-07-14] MEDS: PHENAZOPYRIDINE 100MG TAB PO ONE (12:23)
[2024-07-14 13:43] VITALS: BP 96/54; TEMP 98.2
--- NOTE | 2024-07-14 16:18 | RAD REPORT ---
EXAM: Fluoroscopy use, Urethrocystogrphy Retrograde HISTORY: HS MAIN LT STENT COMPARISON: None FINDINGS: A total of 20 images were sent to PACS, during a fluoroscopically guided retrograde uretero gram and stent placement. No radiologist was involved in protocoling or performance of the study, and no radiologist was present for the duration of the procedure. No interpretation of the saved imag es will be provided. Total fluoroscopy time: 0.4 minutes. IMPRESSION: Documentation of fluoroscopy use as above.
== END 2024-07-14 13:00 | disposition home or self-care (01) ==
LOC: OR 08:35
PROVIDERS: ATTEND Urology
PROC: 0TP98DZ Removal of Intraluminal Device from Ureter, Via Natural or Artificial Opening Endoscopic (ICD-10-PCS; principal; 2024-07-14 10:15)
DX: N13.5 Crossing vessel and stricture of ureter without hydronephrosis (principal); C79.10 Secondary malignant neoplasm of unspecified urinary organs; I10 Essential (primary) hypertension; E05.90 Thyrotoxicosis, unspecified without thyrotoxic crisis or storm; F32.A Depression, unspecified
CPT/HCPCS: 93005; 87088; 85025; 87086; 80048; 36415; 85610; 82947 ×2; 87077; 87186; 71046; 74450; 51610; 52310; J2704; J2003; J2371; J1580; J2250; J3010; J2405; J0290; J7030

== ENCOUNTER 2024-09-22 09:43 | Day surgery (SDC) | payer OTHER ==
[2024-09-22 08:10] LABS: Absolute Basophils 0.1 K/uL (0-0.5); Absolute Eosinophils 0.3 K/uL (0-0.5); Absolute Lymphocytes (CBC) 2.3 K/uL (0.7-4.9); Absolute Monocytes 0.7 K/uL (0.1-1.3); Absolute Neutrophil 5.9 K/uL (1.8-8.0); Basophils % 0.9 % (0-1.3); Eosinophils % 3.4 % (0-4.4); Hemoglobin 13.9 g/dL (12.0-15.0); Lymphocytes % 24.5 % (15.3-44.8); MCH 29.9 pg (27.0-35.0); MCV 87.8 fL (80-100); MPV 7.9 fL (7.6-11.3); Neutrophils % 64.2 % (41.7-73.7); Nucleated Red Blood Cells % 0.2 % (0-0); Platelets 323 thou/uL (152-406); RBC Red Blood Cell Count 4.67 M/uL (3.86-4.86); Red Cell Distribution Width 14.8 % (12.1-15.2)
[2024-09-22 08:13] LABS: Specific Gravity 1.007 (1.005-1.030); Sqamous Epithelial <5 /HPF (None Seen); Urine Bacteria <20 /HPF (<20); Urine Bilirubin NEGATIVE (Negative); Urine Blood Trace (Negative); Urine Clarity Turbid (Clear); Urine Color Colorless (Yellow); Urine Crystals Unidentified Few /HPF (None Seen); Urine Culture Reflex Order REFLEXED; Urine Glucose NEGATIVE (Negative); Urine Ketones NEGATIVE (Negative); Urine Microscopic Reflex YN ORDER UMIC; Urine Mucus Slight /HPF (None Seen); Urine Nitrite NEGATIVE (Negative); Urine Protein NEGATIVE (Negative); Urine Urobilinogen Normal (Normal); Urine WBC 20-50 /HPF (<5); Urine WBC Clump Rare /HPF (None Seen); Urine Yeast (Budding) Trace /HPF (None Seen)
[2024-09-22 08:15] LABS: PT Prothrombin Time 11.7 SECONDS (10-13.0); Protime INR 1.03
[2024-09-22 08:23] LABS: Anion Gap 7.2 mEq/L (5.0-15.0); Potassium 4.2 mEq/L (3.5-5.1)
[2024-09-22] MEDS: NA CHLORIDE 0.9% 1,000 ML ONE (10:49)
[2024-09-22] MEDS ORDERED: ONDANSETRON 4 MG/2 ML VIAL ONE (11:22)
[2024-09-22] MEDS ORDERED: propofoL 200 MG/20 ML VIAL IV ONE (11:22)
[2024-09-22] MEDS ORDERED: MIDAZOLAM HCL 2 MG/2 ML INJ ONE (11:23)
[2024-09-22] MEDS ORDERED: FENTANYL CITR 100 MCG/2 ML ONE (11:23)
[2024-09-22] MEDS: CEFAZOLIN SODIUM 2 GM/VIAL ONE (12:10)
[2024-09-22] MEDS ORDERED: PHENAZOPYRIDINE 100MG TAB PO ONE (12:46)
[2024-09-22] MEDS ORDERED: CODEINE 30MG/APAP 300MG TAB PO PRN (12:46)
--- NOTE | 2024-09-22 13:03 | P.OP ---
Date of Service: 09/22/24 Preoperative diagnoses: Stent pain on the left History of left ureteral obstruction History of left ureteral mass Metastatic upper tract urothelial carcinoma Postoperative diagnoses: Stent pain on the left History of left ureteral obstruction History of left ureteral mass Metastatic upper tract urothelial carcinoma Principal procedures: Cystoscopy Left retrograde pyelography Left ureteral stent extraction Indications for procedure: 54-year-old woman who initially presented to the urology clinic with gross hematuria and was found to have an obstructing left ureteral lesion in the setting of metastatic carcinoma. Endoscopic biopsy of the ureteral lesion revealed urothelial carcinoma, and a stent was placed to relieve the obstruction and preserve the renal function in order to preserve her options for chemotherapy. She underwent chemotherapy for her metastatic disease and was subsequently switched to immunotherapy with enfortumab vedotin. With an adequate response to that, she was switched to Keytruda, which she currently takes. The initially placed stent was retained for over a year before exchanged more recently, prior to the initiation of the Keytruda. Unfortunately, she had such significant stent discomfort that despite appropriate positioning of the stent on imaging, her pain was persistent. As a result, we agreed to reevaluate for the presence of persistent obstruction given her response to the Keytruda and if necessary, exchange the stent. Procedure note: The patient was consented in the preoperative holding area before being transferred to the operative suite where general anesthesia was induced. She was given Ancef 2 g IV antimicrobial prophylaxis, and pneumoboots were provided for DVT prophylaxis. She was placed in the lithotomy position, padded and secured to the table appropriately. Her genitalia was prepped with Hibiclens and she was draped in standard fashion. The case has begun using a 22 [place] rigid cystoscope to traverse the urethra and into the bladder. There was some stenosis within the inner aspect of the urethra at the bladder neck, but I was able to navigate past this by manipulating the cystoscope accordingly. Upon entry into the bladder, I decompressed of fluid and urine and refilled it with sterile saline surveying the bladder in its entirety. No papillary mucosal lesions were noted throughout. The left ureteral stent was orthotopic in location and coiled nicely at the ureteral orifice. I thus cannulated the ureteral orifice alongside the stent with a 5 [place] ureteral access catheter. Left retrograde pyelography: Using a 70: 30 mixture of Omnipaque and saline, contrast was injected via the lumen of the 5 [place] ureteral access catheter and did propagate up the distal into the mid and proximal ureter alongside the stent before entering the renal pelvis and calyces. There was no evidence of hydronephrosis and no ureteral dilation was noted. The coil of the proximal end of the stent was in the upper pole calyx with then a bifid pelvicalyceal system. No aberrant stent positioning was noted. As a result, I grasped the tip of the stent using an alligator grasper and brought the tip of the stent to the meatus. Leaving the proximal coil within the proximal ureter, I advanced a sensor wire via the stent ultimately into the upper pole calyx. I remove the stent leaving the wire in place and then again advanced a 5 [place] ureteral access catheter alongside the wire into the distal ureter. I performed a second retrograde study, this time injecting full-strength contrast through the 5 [place] ureteral access catheter alongside the sensor safety wire into the collecting system. No significant ureteral obstruction was noted though there was minimal narrowing at the UPJ observed. I observed with spot fluoroscopic imagery performed at the 1 minute and 2 minutes shruthi, and over 50% of the contrast was peristalsed out of the collecting system. I thus removed the sensor wire and advanced the 5 [place] ureteral access catheter back into the ureteral orifice and again injected full-strength contrast. Approximately 50% of the contrast was eliminated from the collecting system within 1 minute of the contrast being injected to fill the pelvicalyceal system. Within 5 minutes, well over 60% of the contrast was eliminated from the c ollecting system. After about 10 minutes of observation, approximately 70 to 80% of contrast was eliminated from the collecting system with only a residual amount of contrast in the upper pole calyx and infundibulum. No ureteral contrast was remnant. As a result, since her T1 half was less than 5 minutes, the system was not obstructed; so I did not elect to replace a new double-J ureteral stent. As a result, I decompressed her bladder of fluid and urine and took the patient out of the lithotomy position. She was awakened from general anesthesia before being transferred to a stretcher. She was then transferred to the recovery room in good condition. Complications: None Discharge disposition: She should obtain a renal ultrasound in 6 to 8 weeks to rule out ongoing or recurrent left hydronephrosis. Subsequent follow-up should be established with me in 2 to 3 months interval assessment. We will try to pull the report of her recent CT scan that she had done at [facility] for my review on follow-up. Findings and Operative Technique
[2024-09-22 13:07] VITALS: TEMP 97.1
--- NOTE | 2024-09-22 13:24 | RAD REPORT ---
Fluoroscopy time 33 seconds
[2024-09-22] MEDS: ONDANSETRON 4 MG/2 ML VIAL ONE (13:33)
[2024-09-22 14:23] VITALS: BP 147/68; O2SAT 96
== END 2024-09-22 14:12 | disposition home or self-care (01) ==
LOC: OR 09:43
PROVIDERS: ATTEND Urology
PROC: 0TP98DZ Removal of Intraluminal Device from Ureter, Via Natural or Artificial Opening Endoscopic (ICD-10-PCS; principal; 2024-09-22 11:30)
DX: T83.84XD Pain due to genitourinary prosthetic devices, implants and grafts, subsequent encounter (principal); C68.9 Malignant neoplasm of urinary organ, unspecified
CPT/HCPCS: 87088; 85025; 81001; 87086; 80048; 36415; 85610; 82947; 76000; 74450; 51610; 52310; J2704; J2250; J3010; J2405 ×2; J7030